=== PATIENT | male | born 1975 | race Caucasian/White ===

== ENCOUNTER 2023-12-17 17:38 | Emergency (ER) | payer BC, SELFPAY ==
[2023-12-17 17:41] VITALS: BP 170/101; PULSE 85; RESP 18; TEMP 37.1; O2SAT 98; BMI 31.1
--- NOTE | 2023-12-17 17:50 | XR_ITS ---
[facility] [id number] Patient Name: REGINALD NIELSON MRN: [id number] date: 1975 Sex: M Assigned Patient Location: ER Current Patient Location: ED.MAIN Accession/Order Number: [id number] Exam Date: 12/17/2023 18:55 Report Date: 12/17/2023 19:28 At the request of: KATINA CAT Procedure: XR sternum min 2V EXAM: XR sternum min 2V TECHNIQUE: AP and lateral views sternum HISTORY: fall COMPARISON: Chest x-ray 03/04/2016 FINDINGS: There is step-off of the posterior cortex of the mid body of the sternum on the lateral view. Soft tissue swelling over the sternum. XR/XR sternum min 2V IMPRESSION: Suspicious for nondisplaced fracture involving the deep cortex of the mid body of the sternum. Electronically authenticated by: TONIA RODRÍGUEZ Date: 12/17/2023 19:28
--- NOTE | 2023-12-17 17:50 | ED.FALL1 ---
HPI - Fall General Chief Complaint: Fall Stated Complaint: FALL CHEST PAIN Time Seen by Provider: 12/17/23 17:39 Source: patient Mode of arrival: walk-in Limitations: no limitations History of Present Illness HPI Narrative: 48-year-old male presents for pain at his sternum. He slipped last night on a porch and fell and hit this area. He did not hit his head. He points to the midline upper sternal area, well below the sternal notch. No other injury was sustained. The pain is worse in certain positions and its moderate. Related Data Allergies Allergy/AdvReac Type Severity Reaction Status Date / Time No Known Drug Allergies Allergy Verified 12/17/23 17:41 Review of Systems ROS Narrative A ten point review of systems is negative except as noted above. Exam Narrative Exam Narrative: Nurses note and vital signs reviewed and patient is not hypoxic. General: The patient appears well and in no apparent respiratory distress. Skin: Warm, dry, no pallor noted. There is no rash noted. Head: Normocephalic, atraumatic Eye: Normal conjunctiva, no drainage Ears, Nose, Mouth, and Throat: oral mucosa is moist. Nares patent. Mouth without vesicles. Ear canals patent. Tm's without Erythema Cardiovascular: Regular Rate and Rhythm; she has tenderness over the midline sternum in the midportion. There is no crepitus bruise or abrasion. He does not have palpable tenderness over the adjacent rib region. Respiratory: Patient is in no distress, no accessory muscle use, lungs are clear to auscultation, no wheezing, rales or rhonchi Back: non-tender GI: Soft and nontender Musculoskeletal: The patient has no evidence of calf tenderness, no pitting edema, symmetrical pulses noted bilaterally Neurological: A&O, normal speech Psychiatric: Cooperative Constitutional Vital Signs, click to edit/add: Last Vital Signs Temp 98.8 F 12/17/23 17:41 Pulse 85 12/17/23 17:41 Resp 18 12/17/23 17:41 BP 170/101 H 12/17/23 17:41 Pulse Ox 98 12/17/23 17:41 O2 Del Method Room Air 12/17/23 17:41 Course Vital Signs Vital signs: Vital Signs Temperature 98.8 F 12/17/23 17:41 Pulse Rate 85 12/17/23 17:41 Respiratory Rate 18 12/17/23 17:41 Blood Pressure 170/101 H 12/17/23 17:41 Pulse Oximetry 98 12/17/23 17:41 Oxygen Delivery Method Room Air 12/17/23 17:41 Temperature 98.8 F 12/17/23 17:41 Pulse Rate 85 12/17/23 17:41 Respiratory Rate 18 12/17/23 17:41 Blood Pressure 170/101 H 12/17/23 17:41 Pulse Oximetry 98 12/17/23 17:41 Oxygen Delivery Method Room Air 12/17/23 17:41 MDM - Fall MDM Narrative Medical decision making narrative: Sternal x-rays ordered and the patient is signed out to Dr. Jose. Differential Diagnosis Differential diagnosis: Likely other (Sternal fracture, sternal contusion) Discharge Plan Discharge Patient Disposition: Still a Patient
--- NOTE | 2023-12-17 19:40 | CT_ITS ---
[address] [address] Patient Name: REGINALD NIELSON MRN: [id number] date: 1975 Sex: M Assigned Patient Location: ER Current Patient Location: ER Accession/Order Number: [id number] Exam Date: 12/17/2023 20:10 Report Date: 12/17/2023 20:40 At the request of: MICHELL PERRIN Procedure: CT chest w con EXAM: CT chest w con HISTORY: fall, sternum fx COMPARISON: CT abdomen and pelvis 02/14/2022 TECHNIQUE: CT of the chest with intravenous contrast. Dose reduction techniques were achieved by using automated exposure control and/or adjustment of mA and/or kV according to patient size and/or use of iterative reconstruction technique. FINDINGS: TUBES AND IMPLANTS: None. CHEST: CHEST WALL AND LOWER NECK: Unremarkable. MEDIASTINUM AND SHEKHAR: Unremarkable. BONES: Minimally displaced fractures of the mid to upper sternal body. Associated retrosternal hematoma measuring approximately 7 millimeters in thickness. AORTA: No aneurysm PULMONARY ARTERIES: No embolism CORONARY ARTERIES: No coronary artery calcifications. HEART: Borderline-enlarged LUNG AND AIRWAYS: Unremarkable. PLEURA: Unremarkable. UPPER ABDOMEN: Hepatic steatosis CT/CT chest w con IMPRESSION: Minimally displaced fractures of the mid to upper sternal body. Associated retrosternal hematoma measuring approximately 7 millimeters in thickness. Otherwise no evidence of acute traumatic injury to the chest. Hepatic steatosis Electronically authenticated by: GIBSON GARCIA Date: 12/17/2023 20:40
[2023-12-17 20:30] VITALS: BP 165/102; PULSE 80; RESP 16; O2SAT 99
[2023-12-17] MEDS: KETOROLAC TROMETHAMINE 30 MG/ML VIAL IVP (20:36)
[2023-12-17] MEDS: ORPHENADRINE 60 MG/ 2 ML VIAL 30 MG IV (20:36)
--- NOTE | 2023-12-17 21:17 | ECG_ITS ---
[facility] Test Date: 2023-12-17 Pat Name: REGINALD NIELSON Department: Room: - Gender: Male [employer]: : 1975 Requested By: TAY EWING Order Number: [id number] Reading MD: SHANNON MCGEE Measurements Intervals [place] Rate: 76 P: 65 FL: 172 QRS: 23 QRSD: 102 T: 23 QT: 394 QTc: 424 Interpretive Statements 1100 Sinus rhythm 9110 normal ECG Compared to ECG 04/18/2019 13:04:32 No significant changes Electronically Signed On 12-19-2023 6:57:26 EST by SHANNON MCGEE
[2023-12-17 21:59] LABS: Troponin I High Sensitivity 7.4 pg/mL (4.0-76.1)
[2023-12-17 22:29] VITALS: BP 166/102; PULSE 72; RESP 16; O2SAT 99
== END 2023-12-17 22:30 | disposition home or self-care (01) ==
PROVIDERS: Emergency Provider Emergency Medicine; PCP Family Medicine
DX: S22.22XA Fracture of body of sternum, initial encounter for closed fracture (principal); S20.219A Contusion of unspecified front wall of thorax, initial encounter; W17.89XA Other fall from one level to another, initial encounter
CPT/HCPCS: 36415; 71120; 71260; 84484; 93005; 96374; 96375; 99285; J1885; J2360; Q9967

== ENCOUNTER 2023-12-25 11:32 | Outpatient (OUT) | payer BC, SELFPAY ==
--- NOTE | 2023-12-25 11:36 | XR_ITS ---
[address] [address] Patient Name: REGINALD NIELSON MRN: [id number] date: 1975 Sex: M Assigned Patient Location: RAD Current Patient Location: Accession/Order Number: [id number] Exam Date: 12/25/2023 11:42 Report Date: 12/26/2023 07:14 At the request of: TAY EWING Procedure: XR sternum min 2V PROCEDURE: XR sternum min 2V COMPARISON: 12/17/2023 HISTORY: Unspecified Fracture Of Sternum S22.20XD FINDINGS: BONES:Previously identified sternal body fracture appears josef with displacement measuring up to 5 mm. No new fracture. SOFT TISSUES:Negative. No visible soft tissue swelling. EFFUSION:None visible. OTHER: Negative. XR/XR sternum min 2V IMPRESSION: Stable sternal body fracture Electronically authenticated by: EDUARD QUIROS Date: 12/26/2023 07:14
--- OUTSIDE RECORDS SUMMARY | 2023-12-25 11:36 | XMS_ITS | CCD ---
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 Name Role Phone Layne Ramírez Attending Unavailable Layne Ramírez Primary Care Physician [phone] KAYLIN, DR BERNICE Pride Admitting Unavailable MEKHI, DR WILLIAM Meléndez Consulting Unavailable EWING, DR BERNICE Pride Primary Care Unavailable EWING, DR BERNICE Pride Attending Unavailable EWING, DR BERNICE Pride Consulting Unavailable EWING, DR BERNICE Pride Primary Care Unavailable DONNY, SARAI Admitting Unavailable DONNY, SARAI Attending Unavailable DONNY, SARAI Admitting Unavailable DONNY, SARAI Attending Unavailable EWING, DR BERNICE Pride Primary Care Unavailable EWING, DR BERNICE Pride Primary Care Unavailable DONNY, SARAI Admitting Unavailable DONNY, SARAI Attending Unavailable EWING, DR BERNICE Pride Primary Care Unavailable EWING, DR BERNICE Pride Admitting Unavailable EWING, DR BERNICE Pride Attending Unavailable JORDAN, DR EDNA Gordon Attending Unavailabl e EWING, DR BERNICE Pride Primary Care Unavailable JORDAN, DR EDNA Gordon Consulting Unavailabl e JORDAN, DR EDNA Gordon Admitting Unavailabl e MEKHI, DR WILLIAM Meléndez Consulting Unavailable KATINA CAT Admitting Unavailable KAYLIN, DR BERNICE Pride Primary Care Unavailable SLIGO, DR EDUARD Norman Consulting Unavailable KATINA CAT Attending Unavailable ARSALAN ROCKWELL Consulting Unavailable KAYLIN, DR BERNICE Pride Primary Care Unavailable SARAI HINES Admitting Unavailable SARAI HINES Attending Unavailable MEKHI, DR WILLIAM Meléndez Consulting Unavailable DONNY, SARAI Consulting Unavailable EWING, DR BERNICE Pride Primary Care Unavailable EWING, DR BERNICE Pride Admitting Unavailable EWING, DR EBRNICE Pride Attending Unavailable EWING, DR BERNICE Pride Consulting Unavailable Bernice Ewing Unavailable DO Jimmy Spears Primary Care Provider [phone] DO Rufus Leung Attending Provider Rufus Leung Unavailable Jimmy Spears Primary Care Unavailable Rufus Leung Admitting Unavailable Rufus Leung Attending Unavailable Jimmy Spears Primary Care Unavailable Rufus Leung Admitting Unavailable Rufus Leung Attending Unavailable Allergies Allergy Classification Reported Allergen(s) Allergy Type Date of Onset Reaction(s) Facility (8 sources) traMADol Drug Allergy Comment:pt states he is not allergic to tramadol [facility] Other Medications Current Medications Medication Drug Class(es) Dates Sig (Normalized) Sig (Original) acetaminophen 325 mg / oxyCODONE hydrochloride 5 mg oral tablet (3 sources) Opioid Agonist Start: 12-18-2023 take 1 tablet by mouth every six hours Endocet 5-325 MG 1 tablet as needed Orally every 6 hrs for 7 days Dec, Active Albuterol Sulfate 108 (90 Base) MCG/ACT (13 sources) take 1 puff(s) by inhalation every four hours as needed Albuterol Sulfate 108 (90 Base) MCG/ACT 1 puff as needed Inhalation every 4 hrs Active allopurinol 300 mg oral tablet (5 sources) Xanthine Oxidase Inhibitor take 1 tablet by mouth once daily Allopurinol 300 MG TAKE 1 TABLET BY MOUTH EVERY DAY for 90 Active cyclobenzaprine hydrochloride 10 mg oral tablet (3 sources) Muscle Relaxant take 1 tablet by mouth every twenty-four hours Cyclobenzaprine HCl 10 MG 1 tablet at bedtime as needed Orally Once a day Active diazePAM 10 mg oral tablet (13 sources) Benzodiazepine Start: 11-27-2023 take 1 tablet by mouth every twelve hours as needed diazePAM 10 MG TAKE 1 TABLET BY MOUTH EVERY 12 HOURS NEEDED for 30 Nov, Active Start: 09-14-2023 take 1 tablet by ashanti th every twelve hours diazePAM 10 MG 1 tablet as needed Orally every 12 hrs for 30 days Sep, Active Start: 07-10-2023 take 1 tablet by ashanti th every twelve hours diazePAM 5 MG 1 tablet as needed Orally every 12 hrs for 30 days Jun, Active Start: 04-26-2023 take 1 tablet by ashanti th once daily as needed diazePAM 5 MG TAKE 1 TABLET BY MOUTH ONCE A DAY NEEDED for Apr, Active Start: 02-14-2023 take 1 tablet by ashanti th once daily as needed diazePAM 5 MG TAKE 1 TABLET BY MOUTH ONCE A DAY NEEDED for Feb, Active Start: 01-19-2023 take 1 tablet by ashanti th once daily as needed diazePAM 5 MG TAKE 1 TABLET BY MOUTH ONCE A DAY NEEDED for Jan, Active Start: 12-05-2022 diazePAM 5 MG TAKE 1 (ONE) TABLET DAILY NEEDED for Nov, Active dicyclomine hydrochloride 20 mg oral tablet (3 sources) Anticholinergic take 1 tablet by mouth every eight hours Dicyclomine HCl 20 MG 1 tablet Orally Three times a day Active losartan potassium 50 mg oral tablet (3 sources) Angiotensin 2 Receptor Dominga take 1 tablet by mouth every twenty-four hours Losartan Potassium 50 MG 1 tablet Orally Once a day Active methocarbamol 750 mg oral tablet (3 sources) Muscle Relaxant Methocarbamol 75 0 MG 1 taablet every 6 hrs prn Active methylPREDNISolone 4 mg oral tablet (3 sources) Corticosteroid take 1 tablet by mouth every twelve hours Medrol 4 MG 1 tablet with food or milk Orally every 12 hrs Active 24 hr metoprolol succinate 50 mg extended release oral tablet (14 sources) beta-Adrenergic [place] take 1 tablet by mouth once daily Metoprolol Succinate ER 50 MG TAKE 1 TABLET BY MOUTH EVERY DAY for 90 days Active take 1 tablet by mouth once jerri y Metoprolol Succinate ER 100 MG TAKE 1 TABLET BY MOUTH EVERY DAY for 90 Active nabumetone 750 mg oral tablet (3 sources) Nonsteroidal Anti-inflammatory Drug Nabumetone 750 MG 1 tablet twice a day prn for 14 days Active omeprazole 20 mg delayed release oral capsule (12 sources) Proton Pump Inhibitor take 1 capsule by mouth once daily Omeprazole 20 MG TAKE 1 CAPSULE BY MOUTH EVERY DAY for 90 Active traMADol hydrochloride 50 mg oral tablet (3 sources) Opioid Agonist take 1 tablet by mouth every twenty-four hours traMADol HCl 50 MG 1 tablet as needed Orally Once a day Active Problems Active Problems Problem Classification Problem Date Documented Date Episodic/Chronic Abdominal pain (17 sources) Unspecified abdominal pain; Translations: [Abdominal pain] Onset: 02-14-2022 Episodic Anxiety disorders (20 sources) Acute stress disorder; Translations: [Acute stress reaction] Chronic Chronic obstructive pulmonary disease and bronchiectasis (13 sources) Bronchitis; Translations: [Bronchitis, not specified as acute or chronic] Episodic Disorders of lipid metabolism (13 sources) Dyslipidemia; Translations: [Hyperlipidemia, unspecified] Chronic Esophageal disorders (13 sources) Gastroesophageal reflux disease; Translations: [Gastro-esophageal reflux disease without esophagitis] Chronic Essential hypertension (14 sources) Essential hypertension; Translations: [Essential (primary) hypertension] Chronic Fever of unknown origin (13 sources) Fever; Translations: [Fever, unspecified] Episodic Gout and other crystal arthropathies (13 sources) Gout; Translations: [Gout, unspecified] Chronic Osteoarthritis (4 sources) Primary osteoarthritis, unspecified ankle and foot; Translations: [PRIMARY OSTEOARTHRITIS UNS ANK FOOT] Onset: 09-13-2022 Chronic Other acquired deformities (1 source) Contracture, left ankle; Translations: [CONTRACTURE LEFT ANKLE] Onset: 10-15-2022 Chronic Other acquired deformities (13 sources) Joint contracture of the ankle and/or foot; Translations: [Contracture, left ankle] Chronic Other connective tissue disease (4 sources) Calcaneal spur, left foot; Translations: [CALCANEAL SPUR LEFT FOOT] Onset: 10-11-2022 Episodic Other connective tissue disease (5 sources) Pain in right foot; Translations: [PAIN IN RIGHT FOOT] Onset: 12-30-2021 Episodic Other connective tissue disease (13 sources) Peripheral neurogenic pain; Translations: [Neuralgia and neuritis, unspecified] Episodic Other connective tissue disease (20 sources) Calcaneal spur; Translations: [Calcaneal spur, right foot] Episodic Other connective tissue disease (13 sources) Peroneal tendinitis; Translations: [Peroneal tendinitis, left leg] Episodic Other connective tissue disease (20 sources) Achilles bursitis; Translations: [Achilles tendinitis, left leg] Episodic Other connective tissue disease (13 sources) Plantar fascial fibromatosis; Translations: [Plantar fascial fibromatosis] Episodic Other connective tissue disease (13 sources) Calcific tendinitis; Translations: [Calcific tendinitis, other site] Episodic Other connective tissue disease (13 sources) Pain in right foot; Translations: [Pain in right foot] Episodic Other connective tissue disease (1 source) Pain in left foot Episodic Other fractures (1 source) Unspecified fracture of sternum, initial encounter for closed fracture Episodic Other nervous system disorders (13 sources) Mononeuropathy of lower limb; Translations: [Unspecified mononeuropathy of right lower limb] Chronic Other nervous system disorders (1 source) Unspecified mononeuropathy of bilateral lower limbs Chronic Other non-traumatic joint disorders (13 sources) Arthralgia of the ankle and/or foot; Translations: [Pain in right ankle and joints of right foot] Episodic Other nutritional; endocrine; and metabolic disorders (13 sources) Obesity; Translations: [Obesity, unspecified] Chronic Other nutritional; endocrine; and metabolic disorders (13 sources) Hyperuricemia without signs of inflammatory arthritis and tophaceous disease; Translations: [Hyperuricemia without signs of inflammatory arthritis and tophaceous disease] Episodic Other screening for suspected conditions (not mental disorders or infectious disease) (20 sources) Serum ferritin high; Translations: [Other specified abnormal findings of blood chemistry] Episodic Sprains and strains (4 sources) Sprain of unspecified ligament of left ankle, initial encounter; Translations: [Strain of unspecified muscles, fascia and tendons at forearm level, right arm, initial encounter] Onset: 07-22-2022 Episodic Substance-related disorders (1 source) Nicotine dependence, cigarettes, uncomplicated; Translations: [NICOTINE DEPEND CIGARETTES UNCOMP] Onset: 07-22-2022 Chronic Unclassified (1 source) Strain of muscle, fascia and tendon of other parts of biceps, right arm, initial encounter; Translations: [Strain of muscle, fascia and tendon of other parts of biceps, right arm, initial encounter] Onset: 07-20-2023 Past or Other Problems Problem Classification Problem Date Documented Da te Episodic/Chronic E Codes: Natural/environment (2 sources) Overexertion from prolonged static or awkward postures, initial encounter; Translations: [Exposure to other specified factors, initial encounter] Onset: 02-16-2022 Episodic Nausea and vomiting (1 source) Vomiting, unspecified; Translations: [VOMITING UNSPECIFIED] Onset: 02-16-2022 Episodic Other aftercare (1 source) 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; Translations: [OTH ROLL SHEETING CUTTER CURRENT DRUG THERAPY] Onset: 07-22-2022 Episodic Other fractures (1 source) Fracture of one rib, left side, initial encounter for closed fracture; Translations: [FX 1 RIB LT SIDE INITIAL CLOS FX] Onset: 02-16-2022 Episodic Other gastrointestinal disorders (1 source) Diarrhea, unspecified; Translations: [DIARRHEA UNSPECIFIED] Onset: 02-16-2022 Episodic Other non-traumatic joint disorders (3 sources) Pain in left ankle and joints of left foot; Translations: [PAIN IN LEFT ANKLE] Onset: 07-21-2022 Episodic Unclassified (9 sources) Post-COVID syndrome; Translations: [Post-COVID syndrome] Unclassified (4 sources) Chronic [id number] syndrome (disorder); Translations: [Post-COVID syndrome] Results Test Name Value Interpretation Reference Range Facility MR elbow RT wo conon 023 MR elbow RT wo con [facility] Main [place] [address] [place] [address] MRI Report Signed Patient: Sung Currie MR#: [id number] : 1975 Acct:[id number] Age/Sex: 48 / M ADM Date: 07/24/23 Loc: MR Room: Type: [facility] Attending Dr: Rufus Leung DO Copies to: Rufus Leung DO Ordering Provider: Rufus Leung DO Date of Service: 07/24/23 MR/MR elbow RT wo con: S46.211A MR elbow RT wo con 07/24/2023 12:34 PM SIGNS AND SYMPTOMS: Injury to biceps with pain from right elbow into right upper arm PROTOCOL: Multiplanar multisequence MR images of the right elbow were obtained without IV contrast COMPARISON: 07/20/2023 FINDINGS: Joint fluid: There is a small joint effusion. Medial: Ulnar collateral ligament: Intact. Common flexor tendon: Intact. Medial epicondyle: Normal. Lateral: Radial collateral ligament: Intact. Lateral ulnar collateral ligament: Intact. Common extensor tendon: There is edema at the origin of the common extensor tendon. The tendon is grossly intact.. Lateral epicondyle: Normal. Posterior: Triceps: Intact. Olecranon: There is enthesophyte formation similar to that seen on previous radiographs. Anterior: Biceps: There is a full-thickness tear of the biceps tendon at the insertion along the radial tuberosity. The biceps tendon has been retracted by 10.7 cm. Brachialis: Intact. Bicipitoradial bursa: Intact. Articular: Radio-capitellar joint: Normal. Ulno-humeral joint: Normal. Proximal radio-ulnar joint: Normal. Bones (other than subarticular marrow): Normal. Muscles: Normal. Vessels: Normal. Nerves: Cubital tunnel normal, retinaculum intact. Anconeus epitrochlearis muscle present. Intra-articular bodies: None. MR/MR elbow RT wo con IMPRESSION: There is a full-thickness tear of the biceps tendon at the insertion along the radial tuberosity. The biceps tendon has been retracted by 10.7 cm. Tendinopathy is noted at the origin of the common extensor tendon. There is enthesophyte formation along the olecranon similar to the prior radiographs. Impression dictated by: Maciel Gonzalez M.D.07/24/2023 4:30 PM Dictation Location: [place] [address] Transcribed By: [facility] 07/24/23 1630 Dictated By: Maciel Gonzalez II, MD 07/24/23 1622 Signed By: 07/24/23 1630 Normal [facility] MR elbow RT wo con [facility] [employer] Other MR elbow RT wo con [facility] [employer] Other MR elbow RT wo con [address] [place] [address] [employer] Other MR elbow RT wo con [address] [employer] Other MR elbow RT wo con MRI Report [facility] [employer] Other MR elbow RT wo con Signed Patient [employer] [facility] [employer] Other MR elbow RT wo con Patient: Sung Currie MR#: [id number] [facility] [employer] Other MR elbow RT wo con : 1975 Acct:[id number] [facility] [employer] Other MR elbow RT wo con Age/Sex: 48 / M ADM Date: 07/24/23 Patient [employer] [facility] [employer] Other MR elbow RT wo con Loc: Room: Type: REG CLI [employer] Other MR elbow RT wo con Attending Dr: Rufus Leung DO [employer] Other MR elbow RT wo con Copies to: Rufus Leung DO [employer] Other MR elbow RT wo con Ordering Provider: Rufus Leung DO [employer] Other MR elbow RT wo con Date of Service: 07/24/23 [employer] Other MR elbow RT wo con MR/MR elbow RT wo con: S46.211A [employer] Other MR elbow RT wo con MR elbow RT wo con 07/24/2023 12:34 PM [employer] Other MR elbow RT wo con SIGNS AND SYMPTOMS: Injury to biceps with pain from right elbow into right upper arm [employer] Other MR elbow RT wo con PROTOCOL: Multiplana r multisequence MR images of the right elbow were obtained without IV contrast [employer] Other MR elbow RT wo con COMPARISON: 07/20/2023 [employer] Other MR elbow RT wo con FINDINGS: [employer] Other MR elbow RT wo con Joint fluid: There i s a small joint effusion. [employer] Other MR elbow RT wo con Medial: [employer] Other MR elbow RT wo con Ulnar collateral ligament: Intact. [employer] Other MR elbow RT wo con Common flexor tendon : Intact. [employer] Other MR elbow RT wo con Medial epicondyle: Normal. [employer] Other MR elbow RT wo con Lateral: [employer] Other MR elbow RT wo con Radial collateral ligament: Intact. [employer] Other MR elbow RT wo con Lateral ulnar collateral ligament: Intact. [employer] Other MR elbow RT wo con Common extensor tendon: There is edema at the origin of the common extensor tendon. The tendon is [employer] Other MR elbow RT wo con grossly intact.. [employer] Other MR elbow RT wo con Lateral epicondyle: Normal. [employer] Other MR elbow RT wo con Posterior: [employer] Other MR elbow RT wo con Triceps: Intact. [employer] Other MR elbow RT wo con Olecranon: There is enthesophyte formation similar to that seen on previous radiographs. [employer] Other MR elbow RT wo con Anterior: [employer] Other MR elbow RT wo con Biceps: There is a full-thickness tear of the biceps tendon at the insertion along the radial [employer] Other MR elbow RT wo con tuberosity. The biceps tendon has been retracted by 10.7 cm. [employer] Other MR elbow RT wo con Brachialis: Intact. [employer] Other MR elbow RT wo con Bicipitoradial bursa : Intact. [employer] Other MR elbow RT wo con Articular: [employer] Other MR elbow RT wo con Radio-capitellar joint: Normal. [employer] Other MR elbow RT wo con Ulno-humeral joint: Normal. [employer] Other MR elbow RT wo con Proximal radio-ulnar joint: Normal. [employer] Other MR elbow RT wo con Bones (other than subarticular marrow): Normal. [employer] Other MR elbow RT wo con Muscles: Normal. [employer] Other MR elbow RT wo con Vessels: Normal. [employer] Other MR elbow RT wo con Nerves: Cubital tunnel normal, retinaculum intact. Anconeus epitrochlearis muscle present. [employer] Other MR elbow RT wo con Intra-articular bodies: None. [employer] Other MR elbow RT wo con MR/MR elbow RT wo con [employer] Other MR elbow RT wo con IMPRESSION: [employer] Other MR elbow RT wo con There is a full-thickness tear of the biceps tendon at the insertion along the radial tuberosity. [employer] Other MR elbow RT wo con The biceps tendon sahni s been retracted by 10.7 cm. [employer] Other MR elbow RT wo con Tendinopathy is note d at the origin of the common extensor tendon. [employer] Other MR elbow RT wo con There is enthesophyt e formation along the olecranon similar to the prior radiographs. [employer] Other MR elbow RT wo con Impression dictated by: Maciel Gonzalez M.D.07/24/2023 4:30 PM [employer] Other MR elbow RT wo con Dictation Location: [place] [address] [employer] Other MR elbow RT wo con Transcribed By: RALEEN 07/24/23 1630 [employer] Other MR elbow RT wo con Dictated By: Maciel Gonzalez II, MD 07/24/23 1622 [employer] Other MR elbow RT wo con Signed By: [employer] Other MR elbow RT wo con 07/24/23 1630 [facility] [employer] Other XR elbow RT 2Von 07-20-2023 XR elbow RT 2V [facility] Main [place] [address] [place] [address] XRay Report Signed Patient: Sung Currie MR#: [id number] : 1975 Acct:[id number] Age/Sex: 48 / M ADM Date: 07/20/23 Loc: [facility] Room: Type: [facility] Attending Dr: Rufus Leung DO Copies to: Rufus Leung DO Ordering Provider: Rufus Leung DO Date of Service: 07/20/23 XR/XR elbow RT 2V: Rupture of right distal biceps tendon, initial encounter RIGHT ELBOW - 4 VIEWS CLINICAL HISTORY: History of right biceps injury 4-5 months ago with pain radiating from the elbow upward. COMPARISON: None AP and lateral views were obtained. No acute fracture or dislocation is noted. There is an enthesophyte at the olecranon at the insertion of triceps tendon with small adjacent corticated bony ossicles. There is minimal enthesophyte formation at the humeral condyles. A small amount of joint fluid is possible. No focal soft tissue swelling is seen. XR/XR elbow RT 2V IMPRESSION: DEGENERATIVE CHANGES. NO DEFINITE ACUTE BONY FINDINGS. Impression dictated by: Nuzhat Gutierrez M.D.07/20/2023 3:40 PM Dictation Location: [place] [address] Transcribed By: [facility] 07/20/23 1540 Dictated By: Nuzhat Gutierrez MD 07/20/23 1538 Signed By: 07/20/23 1540 Normal [facility] XR elbow RT 2V [facility] [employer] Other XR elbow RT 2V [facility] Main [facility] [employer] Other XR elbow RT 2V [address] [facility] [employer] Other XR elbow [place] [address] [address] No rt [employer] Other XR elbow RT 2V XRay Report [employer] Other XR elbow RT 2V Signed [employer] Other XR elbow RT 2V Patient: Sung Currie MR#: [id number] [employer] Other XR elbow RT 2V : 1975 Acct:[id number] [employer] Other XR elbow RT 2V Age/Sex: 48 / M ADM Date: 07/20/23 [employer] Other XR elbow RT 2V Loc: [facility] Room: Type : [facility] [employer] Other XR elbow RT 2V Attending Dr: Rufus Leung DO [employer] Other XR elbow RT 2V Copies to: Rufus Leung DO [employer] Other XR elbow RT 2V Ordering Provider: Rufus Leung DO [employer] Other XR elbow RT 2V Date of Service: 07/20/23 [employer] Other XR elbow RT 2V XR/XR elbow RT 2V: Rupture of right distal biceps tendon, initial [employer] Other XR elbow RT 2V encounter [employer] Other XR elbow RT 2V RIGHT ELBOW - 4 VIEWS [employer] Other XR elbow RT 2V CLINICAL HISTORY: History of right biceps injury 4-5 months ago with pain radiating from the elbow [employer] Other XR elbow RT 2V upward. [employer] Other XR elbow RT 2V COMPARISON: None [facility] [employer] Other XR elbow RT 2V AP and lateral views were obtained. No acute fracture or dislocation is noted. There is an [employer] Other XR elbow RT 2V enthesophyte at the olecranon at the insertion of triceps tendon with small adjacent corticated bony [employer] Other XR elbow RT 2V ossicles. There is minimal enthesophyte formation at the humeral condyles. A small amount of joint [employer] Other XR elbow RT 2V fluid is possible. N o focal soft tissue swelling is seen. [employer] Other XR elbow RT 2V XR/XR elbow RT 2V [employer] Other XR elbow RT 2V IMPRESSION: [employer] Other XR elbow RT 2V DEGENERATIVE CHANGES. [employer] Other XR elbow RT 2V NO DEFINITE ACUTE BONY FINDINGS. [employer] Other XR elbow RT 2V Impression dictated by: Nuzhat Gutierrez M.D.07/20/2023 3:40 PM [employer] Other XR elbow RT 2V Dictation Location: [place] [address] [employer] Other XR elbow RT 2V Transcribed By: [facility] 07/20/23 1540 [employer] Other XR elbow RT 2V Dictated By: Nuzhat Gutierrez MD 07/20/23 1534 [employer] Other XR elbow RT 2V Signed By: [employer] Other XR elbow RT 2V 07/20/23 1540 [employer] Other Ambulatory Visit Summaryon 0 08-03-2022 Ambulatory Visit Summary SUNG CURRIE :1975 Visit Date:08/03/2022 Ambulatory Visit Instructions Your Care Team Attending Physician - Desiree HENSLEY, Layne Primary Care Physician - Desiree HENSLEY, Layne Allergies No active allergies Normal [facility] CBC AUTO DIFFon 07-25-2022 BASO # 0.0 103/ul Normal 0.0-0.1 [facility] Comment on above: Performed By: #### C #### [facility] [address] [place] [address] [address] Nini Jordan Basophils/100 WBC (Bld) 0.2 % Normal 0.2-2.0 [facility] Comment on above: Performed By: #### C BC #### [facility] [address] [place] [address] Dr. Nini Jordan EO # 0.0 103/ul Normal 0.0-0.7 [facility] Comment on above: Performed By: #### C BC #### [facility] [address] [place] [address] Dr. Nini Jordan Eosinophils/100 WBC (Bld) 0.2 % Critically low 0.9-7.0 [facility] Comment on above: Performed By: #### C BC #### [facility] [address] [place] [address] Dr. Nini Jordan Erythrocyte distribution width (RBC) [Ratio] 12.6 % Normal 11.0-15.0 [facility] Comment on above: Performed By: #### C BC #### [facility] [address] [place] [address] Dr. Nini Jordan Hematocrit (Bld) [Volume fraction] 42.5 % Normal 42.0-54.0 [facility] Comment on above: Performed By: #### C BC #### [facility] [address] [place] [address] Dr. Nini Jordan Hemoglobin (Bld) [Mass/Vol] 14.0 g/dL Normal 14.0-18.0 [facility] Comment on above: Performed By: #### C BC #### [facility] [address] [place] [address] Dr. Nini Jordan IG # 0.06 10e3/ul Critically high 0.00-0.03 [facility] Comment on above: Performed By: #### C BC #### [facility] [address] [place] [address] Dr. Nini Jordan IG % 0.6 % Critically high 0.0-0.5 [facility] Comment on above: Performed By: #### C BC #### [facility] [address] [address] [address] Nini Jordan LYMPH # 1.6 103/ul Normal 1.2-3.8 [facility] Comment on above: Performed By: #### C BC #### [facility] [address] [address] [address] Nini Jordan Lymphocytes/100 WBC (Bld) 16.5 % Critically low 20.5-60.0 [facility] Comment on above: Performed By: #### C BC #### [facility] [address] [place] [address] Dr. Nini Jordan MANUAL DIFF REQ NO Normal [facility] Comment on above: Performed By: #### C BC #### [facility] [address] [place] [address] Dr. Nini Jordan MCH (RBC) [Entitic mass] 32.6 pg Normal 25.9-34.0 [facility] Comment on above: Performed By: #### C BC #### [facility] [address] [place] [address] Dr. Nini Jordan MCHC (RBC) [Mass/Vol] 32.9 g/dL Normal 29.9-35.2 [facility] Comment on above: Performed By: #### C BC #### [facility] [address] [place] [address] Dr. Nini Jordan MCV (RBC) [Entitic vol] 98.8 fL Critically high 80.0-94.0 [facility] Comment on above: Performed By: #### C BC #### [facility] [address] [place] [address] Dr. Nini Jordan MONO # 0.7 103/ul Normal 0.3-0.8 [facility] Comment on above: Performed By: #### C BC #### [facility] [address] [place] [address] Dr. Nini Jordan Monocytes/100 WBC (Bld) 6.8 % Normal 1.7-12.0 [facility] Comment on above: Performed By: #### C BC #### [facility] [address] [address] [address] Nini Jordan NEUT # 7.4 103/ul Critically high 1.4-6.5 [facility] Comment on above: Performed By: #### C BC #### [facility] [address] [address] [address] Nini Jordan Neutrophils/100 WBC (Bld) 75.7 % Critically high 43.0-75.0 [facility] Comment on above: Performed By: #### C BC #### [facility] [address] [address] [address] Nini Jordan Platelet mean volume (Bld) [Entitic vol] 9.4 fL Critically low 9.5-13.5 [facility] Comment on above: Performed By: #### C BC #### [facility] [address] [address] [address] Nini Jordan PLT 213 103/ul Normal 150-450 [facility] Comment on above: Performed By: #### C BC #### [facility] [address] [address] [address] Nini Jordan RBC 4.30 106/ul Critically low 4.70-6.10 [facility] Comment on above: Performed By: #### C BC #### [facility] [address] [address] [address] Nini Jordan WBC 9.8 103/ul Normal 4.0-11.0 [facility] Comment on above: Performed By: #### C BC #### [facility] [address] [address] [address] Nini Jordan LIPID PROFILEon 07-25-2022 CHOL-HDL RATIO NORM SEE BELOW Normal [facility] Comment on above: Result Comment: 3.3 - 4.4 LOW RISK 4.4 - 7.1 AVERAGE RISK 7.1 - 11.0 MODERATE RISK >11.0 HIGH RISK Performed By: #### C BC #### [facility] [address] [address] [address] Nini Jordan Cholesterol [Mass/Vol] 243 mg/dL Critically high <=200 [facility] Comment on above: Performed By: #### C BC #### [facility] [address] [address] [address] Nini Jordan Cholesterol in HDL [Mass/Vol] 60 mg/dL Normal 40-60 [facility] Comment on above: Performed By: #### C BC #### [facility] [address] [place], [place] [address] Dr. Nini Jordan Cholesterol in LDL [Mass/Vol] 162.6 mg/dL Normal [facility] Comment on above: Performed By: #### C BC #### [facility] [address] [address] [address] Nini Jordan Cholesterol.total/C holesterol in HDL [Mass ratio] 4.1 {ratio} Normal [facility] Comment on above: Performed By: #### C BC #### [facility] [address] [place] [address] Dr. Nini Jordan HDL NORMAL > or = 60 mg/dl - LO W CARDIOVASCULAR RISK <40 mg/dl - HIGH CARDIOVASCULAR RISK Normal [facility] Comment on above: Performed By: #### C BC #### [facility] [address] [place] [address] Dr. Nini Jordan LDL CALC NORMAL SEE BELOW Normal [facility] Comment on above: Result Comment: <100 mg/dl OPTIMAL 100 - 129 mg/dl NEAR OR ABOVE OPTIMAL 130 - 159 mg/dl BORDERLINE HIGH 160 - 189 mg/dl HIGH >190 mg/dl VERY HIGH Performed By: #### C BC #### [facility] [address] [address] [address] Nini Jordan Triglyceride [Mass/Vol] 102 mg/dL Normal <=150 [facility] Comment on above: Performed By: #### C BC #### [facility] [address] [place] [address] Dr. Nini Jordan VLDL CALC 20.4 mg/dL Normal [facility] Comment on above: Performed By: #### C BC #### [facility] [address] [address] [address] Nini Jordan PROF 14(COMP METB)on 022 Albumin [Mass/Vol] 3.3 g/dL Critically low 3.4-5.0 [facility] Comment on above: Performed By: #### C BC #### [facility] [address] [place] [address] Dr. Nini Jordan Albumin/Globulin [Mass ratio] 0.9 {ratio} Normal [facility] Comment on above: Performed By: #### C BC #### [facility] [address] [place] [address] Dr. Nini Jordan ALP [Catalytic activity/Vol] 72 U/L Normal 46-116 [facility] Comment on above: Performed By: #### C BC #### [facility] [address] [place] [address] Dr. Nini Jordan ALT [Catalytic activity/Vol] 46 U/L Normal 16-63 [facility] Comment on above: Performed By: #### C BC #### [facility] [address] [place] [address] Dr. Nini Jordan Anion gap [Moles/Vol] 11.0 mmol/L Normal [facility] Comment on above: Performed By: #### C BC #### [facility] [address] [place] [address] Dr. Nini Jordan AST [Catalytic activity/Vol] 25 U/L Normal 15-37 [facility] Comment on above: Performed By: #### C BC #### [facility] [address] [place] [address] Dr. Nini Jordan Bilirubin [Mass/Vol] 0.3 mg/dL Normal 0.2-1.0 [facility] Comment on above: Performed By: #### C BC #### [facility] [address] [place] [address] Dr. Nini Jordan Calcium [Mass/Vol] 8.7 mg/dL Normal 8.5-10.1 [facility] Comment on above: Performed By: #### C BC #### [facility] [address] [place] [address] Dr. Nini Joradn Chloride [Moles/Vol] 99 mmol/L Normal 98-107 [facility] Comment on above: Performed By: #### C BC #### [facility] [address] [address] [address] Nini Jordan CO2 [Moles/Vol] 27.3 mmol/L Normal 21.0-32.0 [facility] Comment on above: Performed By: #### C BC #### [facility] [address] [address] [address] Nini Jordan Creatinine [Mass/Vol] 0.87 mg/dL Normal 0.70-1.30 [facility] Comment on above: Performed By: #### C BC #### [facility] [address] [address] [address] Nini Jordan EGFR-AF NAMIBIAN >60 Normal >=60 [facility] Comment on above: Performed By: #### C BC #### [facility] [address] [address] [address] Nini Jordan EGFR-NON AF NAMIBIAN >60 Normal >=60 [facility] Comment on above: Performed By: #### C BC #### [facility] [address] [address] [address] Nini Jordan Globulin (S) [Mass/Vol] 3.7 g/dL Normal [facility] Comment on above: Performed By: #### C BC #### [facility] [address] [address] [address] Nini Jordan Glucose [Mass/Vol] 109 mg/dL Critically high 74-106 [facility] Comment on above: Performed By: #### C BC #### [facility] [address] [address] [address] Nini Jordan Potassium [Moles/Vol] 3.3 mmol/L Critically low 3.5-5.1 [facility] Comment on above: Performed By: #### C BC #### [facility] [address] [address] [address] Nini Jordan Protein [Mass/Vol] 7.0 g/dL Normal 6.4-8.2 [facility] Comment on above: Performed By: #### C BC #### [facility] [address] [place] [address] Dr. Nini Jordan Sodium [Moles/Vol] 134 mmol/L Critically low 136-145 Th [facility] Comment on above: Performed By: #### C BC #### [facility] [address] [place] [address] Dr. Nini Jordan Urea nitrogen [Mass/Vol] 20.0 mg/dL Critically high 7.0-18.0 [facility] Comment on above: Performed By: #### C BC #### [facility] [address] [place] [address] Dr. Nini Jordan Urea nitrogen/Creatinine [Mass ratio] 23.0 mg/mg Normal [facility] Comment on above: Performed By: #### C BC #### [facility] [address] [place] [address] Dr. Nini Jordan AMYLASEon 02-14-2022 AMYL <30 Normal 25-115 [facility] Comment on above: Performed By: #### C BC #### [facility] [address] [place] [address] Dr. Nini Jordan CBC AUTO DIFFon 02-14-2022 BASO # 0.0 103/ul Normal 0.0-0.1 [facility] Comment on above: Performed By: #### C BC #### [facility] [address] [place] [address] Dr. Nini Jordan Basophils/100 WBC (Bld) 0.3 % Normal 0.2-2.0 [facility] Comment on above: Performed By: #### C BC #### [facility] [address] [place] [address] Dr. Nini Jordan EO # 0.0 103/ul Normal 0.0-0.7 [facility] Comment on above: Performed By: #### C BC #### [facility] [address] [place] [address] Dr. Nini Jordan Eosinophils/100 WBC (Bld) 0.1 % Critically low 0.9-7.0 [facility] Comment on above: Performed By: #### C BC #### [facility] [address] [place] [address] Dr. Nini Jordan Erythrocyte distribution width (RBC) [Ratio] 13.4 % Normal 11.0-15.0 [facility] Comment on above: Performed By: #### C BC #### [facility] [address] [place] [address] Dr. Nini Jordan Hematocrit (Bld) [Volume fraction] 44.2 % Normal 42.0-54.0 [facility] Comment on above: Performed By: #### C BC #### [facility] [address] [place] [address] Dr. Nini Jordan Hemoglobin (Bld) [Mass/Vol] 14.8 g/dL Normal 14.0-18.0 [facility] Comment on above: Performed By: #### C BC #### [facility] [address] [place] [address] Dr. Nini Jordan IG # 0.11 10e3/ul Critically high 0.00-0.03 [facility] Comment on above: Performed By: #### C BC #### [facility] [address] [place] [address] Dr. Nini Jordan IG % 0.7 % Critically high 0.0-0.5 [facility] Comment on above: Performed By: #### C BC #### [facility] [address] [place] [address] Dr. Nini Jordan LYMPH # 1.6 103/ul Normal 1.2-3.8 [facility] Comment on above: Performed By: #### C BC #### [facility] [address] [place] [address] Dr. Nini Jordan Lymphocytes/100 WBC (Bld) 10.3 % Critically low 20.5-60.0 [facility] Comment on above: Performed By: #### C BC #### [facility] [address] [place] [address] Dr. Nini Jordan MANUAL DIFF REQ NO Normal [facility] Comment on above: Performed By: #### C BC #### [facility] [address] [place] [address] Dr. Nini Jordan MCH (RBC) [Entitic mass] 31.6 pg Normal 25.9-34.0 [facility] Comment on above: Performed By: #### C BC #### [facility] [address] [place] [address] Dr. Nini Jordan MCHC (RBC) [Mass/Vol] 33.5 g/dL Normal 29.9-35.2 [facility] Comment on above: Performed By: #### C BC #### [facility] [address] [address] [address] Nini Jordan MCV (RBC) [Entitic vol] 94.2 fL Critically high 80.0-94.0 [facility] Comment on above: Performed By: #### C BC #### [facility] [address] [place] [address] Dr. Nini Jordan MONO # 1.0 103/ul Critically high 0.3-0.8 [facility] Comment on above: Performed By: #### C BC #### [facility] [address] [place] [address] Dr. Nini Jordan Monocytes/100 WBC (Bld) 6.4 % Normal 1.7-12.0 [facility] Comment on above: Performed By: #### C BC #### [facility] [address] [place] [address] Dr. Nini Jordan NEUT # 12.5 103/ul Critically high 1.4-6.5 [facility] Comment on above: Performed By: #### C BC #### [facility] [address] [place] [address] Dr. Nini Jordan Neutrophils/100 WBC (Bld) 82.2 % Critically high 43.0-75.0 [facility] Comment on above: Performed By: #### C BC #### [facility] [address] [place] [address] Dr. Nini Jordan Platelet mean volume (Bld) [Entitic vol] 9.4 fL Critically low 9.5-13.5 [facility] Comment on above: Performed By: #### C BC #### [facility] [address] [place] [address] [address] [address] Nini Jordan PLT 327 103/ul Normal 150-450 [facility] Comment on above: Performed By: #### C BC #### [facility] [address] [place], [place] [address] Dr. Nini Jordan RBC 4.69 106/ul Critically low 4.70-6.10 [facility] Comment on above: Performed By: #### C BC #### [facility] [address] [place], [place] [address] Dr. Nini Jordan WBC 15.2 103/ul Critically high 4.0-11.0 [facility] Comment on above: Performed By: #### C BC #### [facility] [address] [place], [place] [address] ABD/PELV W CONon 02-15-20 CT ABD/PELV W CON EXAMINATION: CT ABD/PELV W CON, 02/14/2022 2:16 PM EDT HISTORY: DIARRHEA, UNSPECIFIED , epigastric pain, nausea, vomiting COMPARISON: None. TECHNIQUE: CT scan of the abdomen and pelvis was performed with IV contrast. CT dose reduction technique was used, including Automated Exposure Control. FINDINGS: LUNG BASES: No visible pulmonary or pleural disease. LIVER: Diffuse hypoattenuation consistent with hepatic steatosis BILIARY: No dilatation or calcification. PANCREAS: No lesion, fluid collection, ductal dilatation, or atrophy. SPLEEN: No enlargement or focal lesion. ADRENALS: No mass or enlargement. KIDNEYS: No mass, obstruction, or calcification. BOWEL/MESENTERY: Minimal colonic diverticulosis. Nonobstructive bowel gas pattern. Normal appendix. AORTA/VASCULAR: No aortic aneurysm. Minimal atherosclerosis. RETROPERITONEUM: No mass or adenopathy. LYMPH NODES: No adenopathy. URINARY BLADDER: No visible focal wall thickening, lesion, or calculus. PELVIC ORGANS: No visible mass. Pelvic organs appropriate for patient age. ABDOMINAL WALL: No mass or hernia. BONES: Fracture of the left lateral seventh rib, axial image 2 OTHER: Small amount of free pelvic fluid IMPRESSION: Acute nondisplaced fracture left lateral seventh rib Small amount of free pelvic fluid of unknown etiology Diffuse hepatic steatosis Electronically authenticated by: EDUARD QUIROS Date: 2022-02-14 15:30 Normal [facility] ETHANOL (BLD ALC)on 02-15-20 22 ALC NOTE NOTE: 80 mg/dl is [facility] legal limit for a blood alcohol level Normal [facility] Comment on above: Performed By: #### C BC #### [facility] [address] [place] [address] Dr. Nini Jordan Ethanol [Mass/Vol] mg/dL Normal [facility] Comment on above: Performed By: #### C BC #### [facility] [address] [place] [address] Dr. Nini Jordan GI PANEL (PCR)on 02-14-2022 Adenovirus F 40/41 Not detected Normal NOT DETECTED [facility] Comment on above: Performed By: #### C BC #### [facility] [address] [place] [address] Dr. Nini Jordan Astrovirus Not detected Normal NOT DETECTED [facility] Comment on above: Performed By: #### C BC #### [facility] [address] [place] [address] Dr. Nini Jordan C. Diff toxin A/B Not detected Normal NOT DETECTED [facility] Comment on above: Performed By: #### C BC #### [facility] [address] [place] [address] Dr. Nini Jordan Campylobacter Not detected Normal NOT DETECTED [facility] Comment on above: Performed By: #### C BC #### [facility] [address] [place] [address] Dr. Nini Jordan Cryptosporidium Not detected Normal NOT DETECTED [facility] Comment on above: Performed By: #### C BC #### [facility] [address] [place] [address] Dr. Nini Jordan Cyclos. Cayetanensis Not detected Normal NOT DETECTED [facility] Comment on above: Performed By: #### C BC #### [facility] [address] [place] [address] Dr. Nini Jordan E. Coli O157 Not Applicable Normal Not Applicable [facility] Comment on above: Performed By: #### C BC #### [facility] [address] [place] [address] Dr. Nini Jordan E. histolytica Not detected Normal NOT DETECTED [facility] Comment on above: Performed By: #### C BC #### [facility] [address] [place] [address] Dr. Nini Jordan EAEC Not detected Normal NOT DETECTED [facility] Comment on above: Performed By: #### C BC #### [facility] [address] [place] [address] Dr. Nini Jordan EIEC Not detected Normal NOT DETECTED [facility] Comment on above: Performed By: #### C BC #### [facility] [address] [place] [address] Dr. Nini Jordan EPEC Not detected Normal NOT DETECTED [facility] Comment on above: Performed By: #### C BC #### [facility] [address] [place] [address] Dr. Nini Jordan ETEC Not detected Normal NOT DETECTED [facility] Comment on above: Performed By: #### C BC #### [facility] [address] [place] [address] Dr. Nini Jordan G. Lamblia Not detected Normal NOT DETECTED [facility] Comment on above: Performed By: #### C BC #### [facility] [address] [place] [address] Dr. Nini PAGE CONTROLS PASSED Normal [facility] Comment on above: Performed By: #### C BC #### [facility] [address] [place] [address] Dr. Nini PETERSEN RENNY HEADER GI PANEL BACTERIA Normal [facility] Comment on above: Performed By: #### C BC #### [facility] [address] [place] [address] Dr. Nini GOSS ECOLI GI PANEL DIARRHEAGENIC E.COLI / SHIGELLA Normal [facility] Comment on above: Performed By: #### C BC #### [facility] [address] [place] [address] Dr. Nini GOSS INFO SEE BELOW [facility] Comment on above: Result Comment: EAEC - Enteroaggregative E. Coli EPEC- Enteropathogenic E. Coli ETEC- Enterotoxigenic E. Coli lt/st STEC- Shigella-like toxin-producing E. Coli stx1/stx2 EIEC- Shigella/Enteroinvasive E. Coli Performed By: #### C BC #### [facility] [address] [place] [address] Dr. Nini GOSS PARASITES GI PANEL PARASITES Normal [facility] Comment on above: Performed By: #### C BC #### [facility] [address] [place] [address] Dr. Nini GOSS VIRUS GI PANEL VIRUSES Normal [facility] Comment on above: Performed By: #### C BC #### [facility] [address] [place] [address] Dr. Nini Jordan Norovirus GI/GII Not detected Normal NOT DETECTED [facility] Comment on above: Performed By: #### C BC #### [facility] [address] [place] [address] Dr. Nini Jordan P. Shigelloides Not detected Normal NOT DETECTED [facility] Comment on above: Performed By: #### C BC #### [facility] [address] [place] [address] Dr. Nini Jordan Rotavirus A Not detected Normal NOT DETECTED [facility] Comment on above: Performed By: #### C BC #### [facility] [address] [place] [address] Dr. Nini Jordan Salmonella Not detected Normal NOT DETECTED [facility] Comment on above: Performed By: #### C BC #### [facility] [address] [place] [address] Dr. Nini Jordan Sapovirus Not detected Normal NOT DETECTED [facility] Comment on above: Performed By: #### C BC #### [facility] [address] [place] [address] Dr. Nini Jordan STEC Not detected Normal NOT DETECTED [facility] Comment on above: Performed By: #### C BC #### [facility] [address] [place] [address] Dr. Nini Jordan Vibrio Not detected Normal NOT DETECTED [facility] Comment on above: Performed By: #### C BC #### [facility] [address] [place] [address] Dr. Nini Jordan Vibrio Cholera Not detected Normal NOT DETECTED [facility] Comment on above: Performed By: #### C BC #### [facility] [address] [place] [address] Dr. Nini Jordan Y. Enterocolitica Not detected Normal NOT DETECTED [facility] Comment on above: Performed By: #### C BC #### [facility] [address] [place] [address] Dr. Nini Jordan LACTATE/LACTIC ACIDon 2021 Lactate [Moles/Vol] 1.2 mmol/L Normal 0.7-2.0 [facility] Comment on above: Performed By: #### L ACT #### [facility] [address] [place] [address] Dr. Nini Jordan LIPASEon 02-14-2022 Lipase [Catalytic activity/Vol] 88.0 U/L Normal 23.0-300.0 [facility] Comment on above: Performed By: #### C BC #### [facility] [address] [place] [address] Dr. Nini Jordan PROF 14(COMP METB)on 022 Albumin [Mass/Vol] 3.8 g/dL Normal 3.4-5.0 [facility] Comment on above: Performed By: #### C BC #### [facility] [address] [place] [address] Dr. Nini Jordan Albumin/Globulin [Mass ratio] 0.9 {ratio} Normal [facility] Comment on above: Performed By: #### C BC #### [facility] [address] [place] [address] Dr. Nini Jordna ALP [Catalytic activity/Vol] 106 U/L Normal 46-116 [facility] Comment on above: Performed By: #### C BC #### [facility] [address] [place] [address] Dr. Nini Jordan ALT [Catalytic activity/Vol] 52 U/L Normal 16-63 [facility] Comment on above: Performed By: #### C BC #### [facility] [address] [place] [address] Dr. Nini Jordan Anion gap [Moles/Vol] 14.6 mmol/L Normal [facility] Comment on above: Performed By: #### C BC #### [facility] [address] [address] [address] Nini Jordan AST [Catalytic activity/Vol] 28 U/L Normal 15-37 [facility] Comment on above: Performed By: #### C BC #### [facility] [address] [place] [address] Dr. Nini Jordan Bilirubin [Mass/Vol] 0.5 mg/dL Normal 0.2-1.3 [facility] Comment on above: Performed By: #### C BC #### [facility] [address] [place] [address] Dr. Nini Jordan Calcium [Mass/Vol] 9.1 mg/dL Normal 8.5-10.1 [facility] Comment on above: Performed By: #### C BC #### [facility] [address] [place] [address] Dr. Nini Jordan Chloride [Moles/Vol] 100 mmol/L Normal 98-107 [facility] Comment on above: Performed By: #### C BC #### [facility] [address] [place] [address] Dr. Nini Jordan CO2 [Moles/Vol] 24.9 mmol/L Normal 22.0-30.0 [facility] Comment on above: Performed By: #### C BC #### [facility] [address] [place] [address] Dr. Nini Jordan Creatinine [Mass/Vol] 1.02 mg/dL Normal 0.66-1.25 [facility] Comment on above: Performed By: #### C BC #### [facility] [address] [place] [address] Dr. Nini Jordan EGFR-AF NAMIBIAN >60 Normal >=60 [facility] Comment on above: Performed By: #### C BC #### [facility] [address] [address] [address] Nini Jordan EGFR-NON AF NAMIBIAN >60 Normal >=60 [facility] Comment on above: Performed By: #### C BC #### [facility] [address] [address] [address] Nini Jordan Globulin (S) [Mass/Vol] 4.1 g/dL Normal [facility] Comment on above: Performed By: #### C BC #### [facility] [address] [address] [address] Nini Jordan Glucose [Mass/Vol] 135 mg/dL Critically high 74-106 [facility] Comment on above: Performed By: #### C BC #### [facility] [address] [address] [address] Nini Jordan Potassium [Moles/Vol] 3.5 mmol/L Normal 3.4-5.0 [facility] Comment on above: Performed By: #### C BC #### [facility] [address] [address] [address] Nini Jordan Protein [Mass/Vol] 7.9 g/dL Normal 6.1-8.2 [facility] Comment on above: Performed By: #### C BC #### [facility] [address] [address] [address] Nini Jordan Sodium [Moles/Vol] 136 mmol/L Critically low 137-145 [facility] Comment on above: Performed By: #### C BC #### [facility] [address] [address] [address] Nini Jordan Urea nitrogen [Mass/Vol] 17.0 mg/dL Normal 7.0-18.0 [facility] Comment on above: Performed By: #### C BC #### [facility] [address] [address] [address] Nini Jordan Urea nitrogen/Creatinine [Mass ratio] 16.7 mg/mg Normal [facility] Comment on above: Performed By: #### C BC #### [facility] [address] [place] [address] Dr. Nini Jordan PROTIMEon 02-14-2022 INR Coag (PPP) [Relative time] 0.93 {INR} Normal [facility] Comment on above: Performed By: #### P TT, PT #### [facility] [address] [place] [address] Dr. Nini Jordan INR GUIDELINES SEE BELOW Normal [facility] Comment on above: Result Comment: YURIY RED INR: 2.0 - 3.0 CONDITIONS NOT LISTED BELOW 2.5 - 3.5 FOR PROSTHETIC HEART VALVE REPLACEMENT 2.5 - 3.5 RECURRENT THROMBOSIS Performed By: #### P TT, PT #### [facility] [address] [place] [address] Dr. Nini Jordan PT Coag (PPP) [Time] 10.1 s Normal 9.0-11.6 [facility] Comment on above: Performed By: #### P TT, PT #### [facility] [address] [place] [address] Dr. Nini Jordan PTTon 02-14-2022 aPTT Coag (Bld) [Time] 24.8 s Normal 22.3-36.2 [facility] Comment on above: Performed By: #### P TT, PT #### [facility] [address] [place] [address] Dr. Nini Jordan Vital Signs Date Time Vital Sign Value Performing Clinician Facility 12-18-2023 14:00-0500 Body height 172.72 cm Bernice Ewing Other [facility] 12-18-2023 14:00-0500 Body mass index (BMI) [Ratio] 34.06 kg/m2 Bernice Ewing Other [facility] 12-18-2023 14:00-0500 Body weight 101.61 kg Bernice Ewing Other [facility] Other 12-18-2023 14:00-0500 Diastolic blood pressure 96 mm[Hg] Bernice Ewing Other [facility] Other 12-18-2023 14:00-0500 Systolic blood pressure 152 mm[Hg] Bernice Ewing Other [facility] Other 09-14-2023 11:00-0400 Body height 172.72 cm Bernice Ewing Other [facility] Other 09-14-2023 11:00-0400 Body mass index (BMI) [Ratio] 34.57 kg/m2 Bernice Ewing Other [facility] Other 09-14-2023 11:00-0400 Body weight 103.15 kg Bernice Ewing Other [facility] Other 09-14-2023 11:00-0400 Diastolic blood pressure 82 mm[Hg] Bernice Ewing Other [facility] Other 09-14-2023 11:00-0400 Systolic blood pressure 121 mm[Hg] Bernice Ewing Other [facility] Other 07-20-2023 13:30-0400 Body height 172.72 cm Rufus Leung Other [facility] Other 07-20-2023 13:30-0400 Body mass index (BMI) [Ratio] 33.45 kg/m2 Rufsu Leung Other [facility] Other 07-20-2023 13:30-0400 Body weight 99.79 kg Rufus Leung Other [facility] Other 07-10-2023 10:15-0400 Body height 172.72 cm Bernice Ewing Other [facility] Other 07-10-2023 10:15-0400 Body mass index (BMI) [Ratio] 33.3 kg/m2 Bernice Ewing Other [facility] Other 07-10-2023 10:15-0400 Body weight 99.34 kg Bernice Ewing Other [facility] Other 07-10-2023 10:15-0400 Diastolic blood pressure 95 mm[Hg] Bernice Ewing Other [facility] Other 07-10-2023 10:15-0400 Systolic blood pressure 147 mm[Hg] Bernice Ewing Other [facility] Other 03-14-2023 16:15-0400 Body height 172.72 cm Bernice Ewing Other [facility] Other 03-14-2023 16:15-0400 Body mass index (BMI) [Ratio] 34.82 kg/m2 Bernice Ewing Other [facility] Other 03-14-2023 16:15-0400 Body weight 103.87 kg Bernice Ewing Other [facility] Other 03-14-2023 16:15-0400 Diastolic blood pressure 74 mm[Hg] Bernice Ewing Other [facility] Other 03-14-2023 16:15-0400 SaO2% (BldA) [Mass fraction] 98 % Bernice Ewing Other [facility] Other 03-14-2023 16:15-0400 Systolic blood pressure 132 mm[Hg] Bernice Ewing Other [facility] Other 12-02-2022 11:00-0500 Body height 172.72 cm Bernice Ewing Other [facility] Other 12-02-2022 11:00-0500 Body mass index (BMI) [Ratio] 36.64 kg/m2 Bernice Ewing Other [facility] Other 12-02-2022 11:00-0500 Body weight 109.32 kg Bernice Ewing Other [facility] Other 12-02-2022 11:00-0500 Diastolic blood pressure 72 mm[Hg] Bernice Ewing Other [facility] Other 12-02-2022 11:00-0500 SaO2% (BldA) [Mass fraction] 97 % Bernice Ewing Other [facility] Other 12-02-2022 11:00-0500 Systolic blood pressure 116 mm[Hg] Bernice Ewing Other [facility] Other Encounters Encounter Date Encounter Type Care Provider Facility Start: 12-18-2023 End: 12-18-2023 ambulatory Bernice Ewing Other [facility] Other Start: 12-18-2023 Office outpatient vi sit 15 minutes Bernice Ewing [facility] Start: 12-18-2023 Telephone encounter Bernice Ewing [facility] Start: 09-14-2023 End: 09-14-2023 ambulatory Bernice Ewing Other [facility] Other Start: 09-14-2023 Office outpatient vi sit 15 minutes Bernice Ewing [facility] Start: 07-25-2023 End: 07-25-2023 ambulatory Rufus Leung Other [facility] Other Start: 07-25-2023 Telephone encounter Rufus Leung [facility] [place] Start: 07-24-2023 End: 07-24-2023 ambulatory Jimmy House Facility:[facility] Start: 07-24-2023 End: 07-24-2023 ambulatory DO Jimmy House Work Phone: [facility] Work Phone: Start: 07-24-2023 End: 07-24-2023 Patient encounter procedure DO Jimmy House Work Phone: [facility] [place] Work Phone: Start: 07-20-2023 End: 07-20-2023 ambulatory Jimmy House Facility:[facility] Start: 07-20-2023 Office outpatient ne w 45 minutes Rufus Leung [facility] Start: 07-20-2023 End: 07-20-2023 ambulatory DO Jimmy House Work Phone: [facility] Work Phone: Start: 07-20-2023 End: 07-20-2023 Patient encounter procedure DO Jimmy Spears Work Phone: [facility] Start: 07-10-2023 End: 07-10-2023 ambulatory Bernice Ewing Other [facility] Other Start: 07-10-2023 Office outpatient vi sit 15 minutes Bernice Ewing [facility] Start: 07-07-2023 End: 07-07-2023 ambulatory Bernice Ewing Other [facility] Other Start: 07-07-2023 Telephone encounter Bernice Ewing [facility] Start: 05-01-2023 End: 05-01-2023 ambulatory Bernice Ewing Other [facility] Other Start: 05-01-2023 Telephone encounter Bernice Ewing [facility] Start: 03-14-2023 End: 03-14-2023 ambulatory Bernice Ewing Other [facility] Other Start: 03-14-2023 Office outpatient vi sit 15 minutes Bernice Ewing [facility] Start: 01-27-2023 End: 01-27-2023 ambulatory Bernice Ewing Other [facility] Other Start: 01-27-2023 Telephone encounter Bernice Ewing [facility] Start: 12-08-2022 End: 12-08-2022 ambulatory Bernice Ewing Other [facility] Other Start: 12-08-2022 Telephone encounter Bernice Ewing [facility] Start: 12-02-2022 End: 12-02-2022 ambulatory Bernice Ewing Other [facility] Other Start: 12-02-2022 Encounter for genera l adult medical examination without abnormal findings Bernice Ewing [facility] Start: 12-02-2022 Office outpatient vi sit 15 minutes Bernice Ewing [facility] Start: 10-11-2022 End: 10-12-[address] BERNICE EWING Facility:[facility] Start: 09-13-2022 End: 10-20-[address] BERNICE EWING Facility:[facility] Start: 08-30-[address] BERNICE EWING Facil ity:[facility] Start: 08-05-[address] BERNICE EWING Facil ity:[facility] Start: 08-03-2022 End: 08-04-2022 ambulatory Layne Gudimella Facility:[facility] Start: 08-03-2022 End: 08-03-2022 Patient encounter procedure Layne Gudimella [facility] [place] Start: 07-30-2022 Encounter for genera l adult medical examination without abnormal findings DR BERNICE EWING [facility] Start: 07-28-2022 ambulatory Layne Gudimella Facili ty:[facility] Start: 07-25-2022 End: 07-26-[address] BERNICE EWING Facility:[facility] Start: 07-25-2022 End: 07-26-2022 Encounter for general adult medical examination without abnormal findings DR BERNICE EWING Facility:[facility] Start: 07-21-2022 End: 07-21-[address] EDNA ORTEGA Facility:[facility] Start: 02-14-2022 End: 02-14-2022 ambulatory KATINA CAT Facility:[facility] Start: 01-05-2022 ambulatory SARAI Salcedo y:[facility] Start: 12-30-2021 End: 12-31-[address] BERNICE EWING Facility:[facility] Procedures Date Procedure Procedure Detail Performing Clinician Start: 07-24-2023 MRI of right elbow DO C doc [facility] Work Phone: Start: 07-20-2023 Plain X-ray of right elbow DO Jimmy House Work Phone: Immunizations Immunization Date Immunization Notes Care Provider Ponce fine 09-02-2021 influenza virus vaccine, split virus (incl. purified surface antigen) Bernice Ewing Other [facility] Other 09-02-2021 influenza virus vaccine, unspecified formulation Layne Gudimella [facility] 03-25-2021 SARS-CoV-2 (COVID-19 ) mRNA BNT-162b2 vax Layne Gudimella [facility] 03-04-2021 SARS-CoV-2 (COVID-19 ) mRNA BNT-162b2 vax Layne Gudimella [facility] 08-23-2020 influenza virus vaccine, split virus (incl. purified surface antigen) Bernice Ewing Other [facility] Other 08-23-2020 influenza virus vaccine, unspecified formulation Layne Gudimella [facility] Payers Date Payer Category Payer Self-pay 2011 Private Health Insurance [id number] 1975 Unknown [id number] 1975 Unknown [id number] 1975 Unknown [id number] 1975 Unknown [id number] 1975 Unknown [id number] 1975 Unknown [id number] 1975 Unknown [id number] 1975 Unknown [id number] 1975 Unknown [id number] 1975 Unknown [id number] 1959 Unknown [id number] Private Health Insurance [employer] [id number] Private Health Insurance [employer] [id number] Unknown [id number] Unknown [id number] Social History Date Type Detail Facility Tobacco smoking status No Smokin g Status Entered [facility] Sex Assigned At Male [facility] Start: 1975 Sex Assigned At Male [facility] Clinical Notes 12-30-2021 to 12-18-2023 Note Date & Type Note Facility 12-18-2023 Evaluation note Encounter Date Diagnosis Assessment Notes Dec, Closed fracture of sternum, unspecified portion of sternum, initial encounter (ICD-10 - S22.20XA) Followup in 1 week - discussed off work and note provided. [facility] Other 11-02-2023 Evaluation note* Encounter Date Diagnosis Assessment Notes Treatment Notes Treatment Clinical Notes Sep, Essential hypertension (ICD-10 - I10) Decrease dose of metoprolol. Monitor blood pressure. Sep, Situational anxiety (ICD-10 - F41.8) Patient requesting increased dose on the diazepam for anxiety. He feels if his anxiety is controlled he has less episodes of hypertension. Sep, Pain in right foot (ICD-10 - M79.671) Pt is established w podiatry. Declines further referral to that office. Request FMLA. Per work for time off as needed for foot pain. Sep, Pain in left foot (ICD-10 - M79.672) as above [facility] Other 09-07-2023 Evaluation note* Encounter Date Diagnosis Assessment Notes Treatment Notes Treatment Clinical Notes Jul, Rupture of right distal biceps tendon, initial encounter (ICD-10 - S46.211A) Patient appears to have ruptured the right distal biceps tendon. Due to the chronicity from his injury, surgical fixation might be very difficult and high risk of failure. We discussed the risks and benefits of surgery and not do surgery. Without surgery, he will have a appreciable loss of supination and some loss of elbow flexion. Full details of surgery discussed. Patient opts to proceed with with surgery at this time. Discussed based on the amount of time since his injury, there is increased risk of surgical complication/failure . Surgical procedure, risks, recovery and restrictions discussed in detail. Patient was in understanding and wishes to proceed. We will order a STAT MRI of the right elbow for surgical planning. We would expect at least 3-4 months before returning to heavy work activity. Patient was instructed that he is not guaranteed surgery. We will obtain the MRI to see where the tendon is. I will discuss the MRI findings and the ongoing plan once MRI results are obtained. [facility] Other 08-28-2023 Evaluation note* Encounter Date Diagnosis Assessment Notes Treatment Notes Treatment Clinical Notes Jun, Tear of right biceps muscle, subsequent encounter (ICD-10 - S46.211D) Pt agrees to referral to ortho for possible bicep tendon repair. Jun, Anxiety, generalized (ICD-10 - F41.1) Symptoms have worsened. Requests an increased amount of prn med. [facility] Other 05-02-2023 Evaluation note* Encounter Date Diagnosis Assessment Notes Treatment Notes Treatment Clinical Notes March, Strain of right elbow and forearm, initial encounter (ICD-10 - S56.911A) Improving, per pt. Consider PT and NSAIDs if pain does not improve further. [facility] Other 01-20-2023 Evaluation note* Encounter Date Diagnosis Assessment Notes Treatment Notes Treatment Clinical Notes Nov, Peripheral neuritis of both feet (ICD-10 - G57.93) Discussed problem at length labs will be ordered under wellness code. Patient states he gets labs once a year under wellness code. Nov, Wellness examination (ICD-10 - Z00.00) [facility] Other 11-30-2022 NotePROCEDURE: XR ANKLE LT MIN 3 V, XR FOOT LT MIN 3 VIEWS HISTORY: Pain of left ankle joint ; chronic heel pain COMPARISON: XR ankle left 07/21/2022 FINDINGS: BONES:Stable, corticated small ossification adjacent the medial malleolus with larger ossification at tip of lateral malleolus favoring sequela of remote injuries. Intact, uniform ankle mortise. Small degenerative enthesophytes at the Achilles tendon and plantar aponeurosis insertions into the calcaneus. SOFT TISSUES:No visible soft tissue swelling. EFFUSION:None visible. OTHER: Negative. IMPRESSION: 1. No acute or suspicious findings to account for patient's symptoms. 2. No appreciable change compared to prior study. Electronically authenticated by: WILLIAM GAMING Date: 2022-10-12 08:47[facility]11-30-2022 NotePROCEDURE: XR ANKLE LT MIN 3 V, XR FOOT LT MIN 3 VIEWS HISTORY: Pain of left ankle joint ; chronic heel pain COMPARISON: XR ankle left 07/21/2022 FINDINGS: BONES:Stable, corticated small ossification adjacent the medial malleolus with larger ossification at tip of lateral malleolus favoring sequela of remote injuries. Intact, uniform ankle mortise. Small degenerative enthesophytes at the Achilles tendon and plantar aponeurosis insertions into the calcaneus. SOFT TISSUES:No visible soft tissue swelling. EFFUSION:None visible. OTHER: Negative. IMPRESSION: 1. No acute or suspicious findings to account for patient's symptoms. 2. No appreciable change compared to prior study. Electronically authenticated by: WILLIAM GAMING Date: 2022-10-12 08:47[facility]09-08-2022 NotePROCEDURE: XR ANKLE LT MIN 3 V HISTORY: Traumatic injury ; acute pain and swelling COMPARISON: None. FINDINGS: BONES:Separate, corticated ossifications adjacent the medial and lateral malleolus favoring sequela of remote injuries. No acute fracture or dislocation. Normal joint spacing. Mild degenerative enthesopathic spurring of the calcaneus. SOFT TISSUES:Mild soft tissue swelling. EFFUSION:None visible. OTHER: Negative. IMPRESSION: 1. No acute bone abnormality or significant degenerative changes. Electronically authenticated by: WILLIAM GAMING Date: 2022-07-21 11:47[facility]02-17-2022 NotePROCEDURE: XR FOOT RT MIN 3 VIEWS HISTORY: Pain in right foot COMPARISON: XR foot right 06/25/2019 FINDINGS: BONES:Mild narrowing of the first metatarsophalangeal joint. No fracture, dislocation, bone lesion. SOFT TISSUES:No visible soft tissue swelling. EFFUSION:None visible. OTHER: Negative. IMPRESSION: 1. No acute bone abnormality. 2. Mild degenerative changes of the first metatarsophalangeal joint, stable to minimally progressed. Electronically authenticated by: WILLIAM GAMING Date: 2021-12-30 10:04[facility] No data available for this section [facility] [place] Evaluation noteNo InformationNort [facility] Other Evaluation noteNo assessment information available [facility] Work Phone: History general Narrative - Reported* Type Description Date Medical History Dyslipidemia Medical History Situational anxiety Medical History Elevated LFTs Medical History Achilles tendinitis, left leg Medical History Acute gouty arthritis Medical History Heel spur, left Medical History Contracture of left ankle Medical History Right foot pain Medical History Obesity Medical History Essential hypertension Medical History Right ankle pain Medical History Peripheral neurogenic pain Medical History Plantar fasciitis, bilateral Medical History Achilles tendinitis, right leg Medical History Peroneal tendinitis, left leg Medical History Elevated ferritin Medical History Abdominal cramping Medical History Acute reaction to situational st ress Medical History Post-COVID syndrome Medical History Bronchitis Medical History Febrile illness, acute Medical History Calcific tendinitis, other site Medical History Neuropathy of right lower extrem ity Medical History Anxiety, generalized Medical History Elevated uric acid in blood Medical History Heel spur, right Medical History Gastroesophageal reflux disease Surgical History LEFT EYE REPAIR OF MAXILLARY FR ACTURE 10/2018 Surgical History RIGHT ACHILLES REPAIR- DR. HIGH KENNEY 04/2019 Surgical History EYELID 2013 Hospitalization History SEE SURGICAL HX [facility] Other Hospital Discharge instructions No data available for this section [facility] Progress note No data available for this section [facility] Summary Purpose Family History No Family History Records FoundNo Family History Records FoundNo Family History Records Found Advance Directives Advance Directive Response Recorded Date/ Time Advance Directives No July 11:35am Reason for Referral Reason *Waiting for appt [facility] Diagnosis 1 Tear of right biceps muscle, subsequent encounter (S46.211D) Referral Organization [facility] Referring Provider First Name Bernice Referring Provider Last Name Kaylin Referring Provider Specialty Family [facility] Referred Organization [facility] Referred Provider Rufus Leung Referred Address [address] [place],[address] Referred Provider Specialty Orthopaedic Surgery Referral Priority Routine General Notes Leeanne Crockett 11:22:47 AM >received today, sent P2P Chief Complaint and Reason for Visit Chief Complaint S46.211A s46.211a Additional Source Comments (unrecognized sect ion and content) No Status Records FoundNo Status Records FoundNo Status Records Found INFORMATION SOURCE (unrecogn ized section and content) DATE CREATED AUTHOR 08/12/2022 Waylon Prabhakar [facility] DATE CREATED AUTHOR AUTHOR'S ORGANIZ ATION 11/11/2022 [facility] DATE CREATED AUTHOR AUTHOR'S ORGANIZ ATION 08/02/2023 [facility] Care Team (unrecognized sect ion and content) Team Status: Active Member Role Status Dates Jimmy Spears , DO Primary Care Provider Active Team Status: Inactive Member Role Status Dates Jimmy Spears , DO Primary Care Provider Active Rufus Leung , DO Attending Provider Active REASON FOR VISIT (unrecogniz ed section and content) labsFeet BurningmessageArmme ssageMedication, ArmmessagequestionsRight Biceps InjuryMedicationsTBHmessagemessage Goals (unrecognized section and content) Goals may be documented in a n alternate section FOR RECORDS PERTAINING TO PATIENTS WHO ARE OR HAVE BEEN ENROLLED IN A CHEMICAL DEPENDENCY/SUBSTANCEABUSE PROGRAM, SOME INFORMATION MAY BE OMITTED. This clinical summary was aggregated from multiple sources. Caution should be exercised in using it in the provision of clinical care. This summary normalizes information from multiple sources, and as a consequence, information in this document may materially change the coding, format and clinical context of patient data. In addition, data may be omitted in some cases. CLINICAL DECISIONS SHOULD BE BASED ON THE PRIMARY CLINICAL RECORDS. [employer] [facility]. provides no warranty or guarantee of the accuracy or completeness of information in this document.
== END 2023-12-25 11:33 | disposition home or self-care (01) ==
LOC: RAD 11:33
PROVIDERS: PCP Family Medicine; Visit Provider Family Medicine
DX: S22.20XD Unspecified fracture of sternum, subsequent encounter for fracture with routine healing (principal)
CPT/HCPCS: 71120

== ENCOUNTER 2024-01-25 08:21 | Outpatient (OUT) | payer BC, SELFPAY ==
--- OUTSIDE RECORDS SUMMARY | 2024-01-25 08:27 | XMS_ITS | CCD ---
Author Name Unknown Address [address] [place] [address] Organization [facility] Care Team Providers Care Family Service Counselor Name Role Phone Layne Ramírez Attending Unavailable Layne Ramírez Primary Care Physician [phone] KAYLIN, DR BERNICE Pride Admitting Unavailable MEKHI, DR WILLIAM Meléndez Consulting Unavailable EWING, DR BERNICE Pride Primary Care Unavailable EWING, DR BERNICE Pride Attending Unavailable EWING, DR BERNICE Pride Consulting Unavailable EWING, DR BERNICE Pride Primary Care Unavailable DONNY, SARAI Admitting Unavailable DONNY, SARAI Attending Unavailable DONNY, SARAI Admitting Unavailable SARAI HINES Attending Unavailable EWING, DR BERNICE Pride Primary [...] KAYLIN, DR BERNICE Pride Primary Care Unavailable REDVALE, DR EDUARD Norman Consulting Unavailable KATINA CAT [...] Unavailable DO Jimmy Spears Primary Care Provider [phone] DO Rufus Leung Attending Provider [phone] Rufus Leung Unavailable Jimmy Spears Primary Care Unavailable Rufus Leung Admitting Unavailable Rufus Leung Attending Unavailable Jimmy Spears Primary Care Unavailable Rufus Leung Admitting Unavailable Rufus Leung Attending Unavailable Allergies Allergy Classification Reported Allergen(s) Allergy Type Date of Onset Reaction(s) Facility (9 sources) traMADol Drug Allergy Comment:pt states he is not allergic to tramadol [facility] Other Medications Current Medications Medication Drug Class(es) Dates Sig (Normalized) Sig (Original) acetaminophen 325 mg / oxyCODONE hydrochloride 5 mg oral tablet (4 sources) Opioid Agonist Start: 12-25-2023 take 1 tablet by mouth every six hours Endocet 5-325 MG 1 tablet as needed Orally every 6 hrs for 7 days Dec, Active Start: 12-18-2023 take 1 tablet by ashanti th every six hours Endocet 5-325 MG 1 tablet as needed Orally every 6 hrs for 7 days Dec, Active Albuterol Sulfate 108 (90 Base) MCG/ACT (14 sources) take 1 puff(s) by inhalation every [...] day Active diazePAM 10 mg oral tablet (14 sources) Benzodiazepine Start: 2023 take 1 tablet by mouth every twelve [...] day Active methocarbamol 750 mg oral tablet (4 sources) Muscle Relaxant Methocarbamol 75 0 MG 1 taablet every 6 hrs prn Active methylPREDNISolone 4 mg oral tablet (3 sources) Corticosteroid take 1 tablet by mouth every twelve hours Medrol 4 MG 1 tablet with food or milk Orally every 12 hrs Active 24 hr metoprolol succinate 50 mg extended release oral tablet (15 sources) beta-Adrenergic Dom[place] take 1 tablet by mouth once daily Metoprolol Succinate ER 50 MG TAKE 1 TABLET BY MOUTH EVERY DAY for 90 days Active take 1 tablet by mouth once jerri y Metoprolol Succinate ER 100 MG TAKE 1 TABLET BY MOUTH EVERY DAY for 90 Active nabumetone 750 mg oral tablet (4 sources) Nonsteroidal Anti-inflammatory Drug Nabumetone 750 MG 1 tablet twice a day prn for 14 days Active omeprazole 20 mg delayed release oral capsule (13 sources) Proton Pump Inhibitor take 1 capsule [...] Problem Date Documented Date Episodic/Chronic Abdominal pain (18 sources) Unspecified abdominal pain; Translations: [Abdominal pain] Onset: 02-14-2022 Episodic Anxiety disorders (20 sources) Acute stress disorder; Translations: [Acute stress reaction] Chronic Chronic obstructive pulmonary disease and bronchiectasis (14 sources) Bronchitis; Translations: [Bronchitis, not specified as acute or chronic] Episodic Disorders of lipid metabolism (14 sources) Dyslipidemia; Translations: [Hyperlipidemia, unspecified] Chronic Esophageal disorders (14 sources) Gastroesophageal reflux disease; Translations: [Gastro-esophageal reflux disease without esophagitis] Chronic Essential hypertension (15 sources) Essential hypertension; Translations: [Essential (primary) hypertension] Chronic Fever of unknown origin (14 sources) Fever; Translations: [Fever, unspecified] Episodic Gout and other crystal arthropathies (14 sources) Gout; Translations: [Gout, unspecified] Chronic Osteoarthritis (4 sources) Primary osteoarthritis, unspecified ankle and foot; Translations: [PRIMARY OSTEOARTHRITIS UNS ANK FOOT] Onset: 09-13-2022 Chronic Other acquired deformities (1 source) Contracture, left ankle; Translations: [CONTRACTURE LEFT ANKLE] Onset: 10-15-2022 Chronic Other acquired deformities (14 sources) Joint contracture of the ankle and/or foot; Translations: [Contracture, left ankle] Chronic Other connective tissue disease (4 sources) Calcaneal spur, left foot; Translations: [CALCANEAL SPUR LEFT FOOT] Onset: 10-11-2022 Episodic Other connective tissue disease (5 sources) Pain in right foot; Translations: [PAIN IN RIGHT FOOT] Onset: 12-30-2021 Episodic Other connective tissue disease (14 sources) Peripheral neurogenic pain; Translations: [Neuralgia and neuritis, unspecified] Episodic Other connective tissue disease (20 sources) Calcaneal spur; Translations: [Calcaneal spur, right foot] Episodic Other connective tissue disease (14 sources) Peroneal tendinitis; Translations: [Peroneal tendinitis, left leg] Episodic Other connective tissue disease (20 sources) Achilles bursitis; Translations: [Achilles tendinitis, left leg] Episodic Other connective tissue disease (14 sources) Plantar fascial fibromatosis; Translations: [Plantar fascial fibromatosis] Episodic Other connective tissue disease (14 sources) Calcific tendinitis; Translations: [Calcific tendinitis, other site] Episodic Other connective tissue disease (14 sources) Pain in right foot; Translations: [Pain in right foot] Episodic Other connective tissue disease (1 source) Pain in left foot Episodic Other fractures (1 source) Unspecified fracture of sternum, initial encounter for closed fracture Episodic Other fractures (1 source) Unspecified fracture of sternum, subsequent encounter for fracture with routine healing Episodic Other nervous system disorders (14 sources) Mononeuropathy of lower limb; Translations: [Unspecified mononeuropathy of right lower limb] Chronic Other nervous system disorders (1 source) Unspecified mononeuropathy of bilateral lower limbs Chronic Other non-traumatic joint disorders (14 sources) Arthralgia of the ankle and/or foot; Translations: [Pain in right ankle and joints of right foot] Episodic Other nutritional; endocrine; and metabolic disorders (14 sources) Obesity; Translations: [Obesity, unspecified] Chronic Other nutritional; endocrine; and metabolic disorders (14 sources) Hyperuricemia without signs of inflammatory arthritis [...] 02-16-2022 Episodic Other aftercare (1 source) Other fpc (current) drug therapy; Translations: [OTH JAIL CURRENT DRUG THERAPY] Onset: 07-22-2022 Episodic Other [...] sources) Post-COVID syndrome; Translations: [Post-COVID syndrome] Unclassified (5 sources) Chronic [id number] syndrome (disorder); Translations: [Post-COVID syndrome] Results Test Name Value Interpretation Reference Range Facility MR elbow RT wo conon 023 MR elbow RT wo con [facility] [place] [address] MRI Report Signed Patient: Sung Currie MR#: [id number] : 1975 Acct:[id number] Age/Sex: 48 / M ADM Date: 07/24/23 Loc: Room: Type: [facility] Attending Dr: Rufus Leung DO Copies [...] Maciel Gonzalez M.D.07/24/2023 4:30 PM Dictation Location: [place] [address] Transcribed By: [facility] 07/24/23 1630 Dictated By: Maciel Gonzalez II, MD 07/24/23 1622 Signed By: 07/24/23 1630 [facility] MR elbow RT wo con [facility] [employer] Other MR elbow RT wo con [facility] [employer] Other MR elbow RT wo con [address] [place] [address] [employer] Other MR elbow RT wo con [address] [employer] Other MR elbow RT wo con MRI Report [facility] [employer] Other MR elbow RT wo con Signed [facility] Other MR elbow RT wo con Patient: Sung Currie MR#: [id number] [facility] [employer] Other MR elbow RT wo con : 1975 Acct:[id number] [facility] Other MR elbow RT wo con Age/Sex: 48 / M ADM Date: 07/24/23 [facility] Other MR elbow RT wo con Loc: MR Room: Type: [facility] Other MR elbow RT wo con Attending Dr: Rufus Leung DO [facility] Other MR elbow RT wo con Copies to: Rufus Leung DO [facility] Other MR elbow RT wo con Ordering Provider: Rufus Leung DO [facility] Other MR elbow RT wo con Date of Service: 07/24/23 [facility] Other MR elbow RT wo con MR/MR elbow RT wo con: S46.211A [facility] Other MR elbow RT wo con MR elbow RT wo con 07/24/2023 12:34 PM [facility] Other MR elbow RT wo con SIGNS AND SYMPTOMS: Injury to biceps with pain from right elbow into right upper arm [facility] Other MR elbow RT wo con PROTOCOL: Multiplana r multisequence MR images of the right elbow were obtained without IV contrast [facility] Other MR elbow RT wo con COMPARISON: 07/20/2023 [facility] Other MR elbow RT wo con FINDINGS: [facility] Other MR elbow RT wo con Joint fluid: There i s a small joint effusion. [facility] Other MR elbow RT wo con Medial: [facility] Other MR elbow RT wo con Ulnar collateral ligament: Intact. [facility] Other MR elbow RT wo con Common flexor tendon : Intact. [facility] Other MR elbow RT wo con Medial epicondyle: Normal. [facility] Other MR elbow RT wo con Lateral: [facility] Other MR elbow RT wo con Radial collateral ligament: Intact. [facility] Other MR elbow RT wo con Lateral ulnar collateral ligament: Intact. [facility] Other MR elbow RT wo con Common extensor tendon: There is edema at the origin of the common extensor tendon. The tendon is [facility] Other MR elbow RT wo con grossly intact.. [facility] Other MR elbow RT wo con Lateral epicondyle: Normal. [facility] Other MR elbow RT wo con Posterior: [facility] Other MR elbow RT wo con Triceps: Intact. [facility] Other MR elbow RT wo con Olecranon: There is enthesophyte formation similar to that seen on previous radiographs. [facility] Other MR elbow RT wo con Anterior: [facility] Other MR elbow RT wo con Biceps: There is a full-thickness tear of the biceps tendon at the insertion along the radial [facility] Other MR elbow RT wo con tuberosity. The biceps tendon has been retracted by 10.7 cm. [facility] Other MR elbow RT wo con Brachialis: Intact. [facility] Other MR elbow RT wo con Bicipitoradial bursa : Intact. [facility] Other MR elbow RT wo con Articular: [facility] Other MR elbow RT wo con Radio-capitellar joint: Normal. [facility] Other MR elbow RT wo con Ulno-humeral joint: Normal. [facility] Other MR elbow RT wo con Proximal radio-ulnar joint: Normal. [facility] Other MR elbow RT wo con Bones (other than subarticular marrow): Normal. [facility] Other MR elbow RT wo con Muscles: Normal. [facility] Other MR elbow RT wo con Vessels: Normal. [facility] Other MR elbow RT wo con Nerves: Cubital tunnel normal, retinaculum intact. Anconeus epitrochlearis muscle present. [facility] Other MR elbow RT wo con Intra-articular bodies: None. [facility] Other MR elbow RT wo con MR/MR elbow RT wo con [facility] Other MR elbow RT wo con IMPRESSION: [facility] Other MR elbow RT wo con There is a full-thickness tear of the biceps tendon at the insertion along the radial tuberosity. [facility] Other MR elbow RT wo con The biceps tendon sahni s been retracted by 10.7 cm. [facility] Other MR elbow RT wo con Tendinopathy is note d at the origin of the common extensor tendon. [facility] Other MR elbow RT wo con There is enthesophyt e formation along the olecranon similar to the prior radiographs. [facility] Other MR elbow RT wo con Impression dictated by: Maciel Gonzalez M.D.07/24/2023 4:30 PM [facility] Other MR elbow RT wo con Dictation Location: [facility] Other MR elbow RT wo con Transcribed By: ARLEEN 07/24/23 1499 [facility] Other MR elbow RT wo con Dictated By: Maciel Gonzalez II, MD 07/24/23 1626 [facility] Other MR elbow RT wo con Signed By: [employer] Other MR elbow RT wo con 07/24/23 1630 [facility] [employer] Other XR elbow RT 2Von 07-20-2023 XR elbow RT 2V [facility] [address] [place] [address] XRay Report Signed Patient: Sung Currie MR#: [id number] : 1975 Acct:[id number] Age/Sex: 48 / M ADM Date: 07/20/23 [place] [facility] Type: [facility] Attending Dr: Rufus Leung DO Copies [...] Nuzhat Gutierrez M.D.07/20/2023 3:40 PM Dictation Location: [place] [address] Transcribed By: [facility] 07/20/23 1540 Dictated By: Nuzhat Gutierrez MD 07/20/23 1538 Signed By: 07/20/23 1540 Normal [facility] XR elbow RT 2V [facility] [employer] Other XR elbow RT 2V [facility] [place] [facility] [employer] Other XR elbow RT 2V [address] [facility] [employer] Other XR elbow [place] [address] [address] No rt [employer] Other XR elbow RT 2V XRay Report [employer] Other XR elbow RT 2V Signed [employer] Other XR elbow RT 2V Patient: Sung Currie MR#: [id number] [place] [employer] Other XR elbow RT 2V : 1975 Acct:[id number] [facility] Other XR elbow RT 2V Age/Sex: 48 / M ADM Date: 07/20/23 [facility] Other XR elbow RT 2V Loc: [facility] Room: Type : [facility] Other XR elbow RT 2V Attending Dr: Rufus Leung DO [facility] Other XR elbow RT 2V Copies to: Rufus Leung DO [facility] Other XR elbow RT 2V Ordering Provider: Rufus Leung DO [facility] Other XR elbow RT 2V Date of Service: 07/20/23 [facility] Other XR elbow RT 2V XR/XR elbow RT 2V: Rupture of right distal biceps tendon, initial [facility] Other XR elbow RT 2V encounter [employer] Other XR elbow RT 2V RIGHT ELBOW - 4 VIEWS [facility] Other XR elbow RT 2V CLINICAL HISTORY: History of right biceps injury 4-5 months ago with pain radiating from the elbow [facility] Other XR elbow RT 2V upward. [employer] Other XR elbow RT 2V COMPARISON: None [place] [employer] Other XR elbow RT 2V AP and lateral views were obtained. No acute fracture or dislocation is noted. There is an [facility] Other XR elbow RT 2V enthesophyte at the olecranon at the insertion of triceps tendon with small adjacent corticated bony [facility] Other XR elbow RT 2V ossicles. There is minimal enthesophyte formation at the humeral condyles. A small amount of joint [facility] Other XR elbow RT 2V fluid is possible. N o focal soft tissue swelling is seen. [facility] Other XR elbow RT 2V XR/XR elbow RT 2V [facility] Other XR elbow RT 2V IMPRESSION: [employer] Other XR elbow RT 2V DEGENERATIVE CHANGES. [facility] Other XR elbow RT 2V NO DEFINITE ACUTE BONY FINDINGS. [facility] Other XR elbow RT 2V Impression dictated by: Nuzhat Gutierrez M.D.07/20/2023 3:40 PM [facility] Other XR elbow RT 2V Dictation Location: [place] [address] [facility] Other XR elbow RT 2V Transcribed By: ARLEEN 07/20/23 1540 [facility] Other XR elbow RT 2V Dictated By: Nuzhat Gutierrez MD 07/20/23 1533 [facility] Other XR elbow RT 2V Signed By: [employer] Other XR elbow RT 2V 07/20/23 1546 [employer] Other Ambulatory Visit Summaryon 0 08-03-2022 Ambulatory Visit Summary SUNG CURRIE :1975 Visit Date:08/03/2022 Ambulatory Visit Instructions Your Care Team Attending Physician - Desiree HENSLEY, Layne Primary Care Physician - Desiree HENSLEY, Layne Allergies No active allergies Normal [facility] CBC AUTO DIFFon 07-25-2022 BASO # 0.0 103/ul Normal 0.0-0.1 [facility] Comment on above: Performed By: #### C BC #### [facility] [address] [place] [address] [address] Nini Jordan Basophils/100 WBC (Bld) 0.2 % Normal 0.2-2.0 [facility] Comment on above: Performed By: #### C BC #### [facility] [address] [place] [address] [address] Nini Jordan EO # 0.0 103/ul Normal 0.0-0.7 [facility] Comment on above: Performed By: #### C BC #### [facility] [address] [place] [address] Dr. Nini Jordan Eosinophils/100 WBC (Bld) 0.2 % Critically low 0.9-7.0 [facility] Comment on above: Performed By: #### C BC #### [facility] [address] [place] [address] Dr. Nini Jordan Erythrocyte distribution width (RBC) [Ratio] 12.6 % Normal 11.0-15.0 [facility] Comment on above: Performed By: #### C BC #### [facility] [address] [place] [address] Dr. Nini Jordan Hematocrit (Bld) [Volume fraction] 42.5 % Normal 42.0-54.0 [facility] Comment on above: Performed By: #### C BC #### [facility] [address] [place] [address] [address] Nini Jordan Hemoglobin (Bld) [Mass/Vol] 14.0 g/dL Normal 14.0-18.0 [facility] Comment on above: Performed By: #### C BC #### [facility] [address] [place] [address] [address] Nini Jordan IG # 0.06 10e3/ul Critically high 0.00-0.03 [facility] Comment on above: Performed By: #### C BC #### [facility] [address] [place] [address] Dr. Nini Jordan IG % 0.6 % Critically high 0.0-0.5 [facility] Comment on above: Performed By: #### C BC #### [facility] [address] [place] [address] Dr. Nini Jordan LYMPH # 1.6 103/ul Normal 1.2-3.8 [facility] Comment on above: Performed By: #### C BC #### [facility] [address] [place] [address] Dr. Nini Jordan Lymphocytes/100 WBC (Bld) 16.5 % Critically low 20.5-60.0 [facility] Comment on above: Performed By: #### C BC #### [facility] [address] [place] [address] Dr. Nini Jordan MANUAL DIFF REQ NO Normal [facility] Comment on above: Performed By: #### C BC #### [facility] [address] [place] [address] Dr. Nini Jordan MCH (RBC) [Entitic mass] 32.6 pg Normal 25.9-34.0 [facility] Comment on above: Performed By: #### C BC #### [facility] [address] [place] [address] Dr. Nini Jordan MCHC (RBC) [Mass/Vol] 32.9 g/dL Normal 29.9-35.2 [facility] Comment on above: Performed By: #### C BC #### [facility] [address] [place] [address] Dr. Nini Jordan MCV (RBC) [Entitic vol] 98.8 fL Critically high 80.0-94.0 [facility] Comment on above: Performed By: #### C BC #### [facility] [address] [place] [address] Dr. Nini Jordan MONO # 0.7 103/ul Normal 0.3-0.8 [facility] Comment on above: Performed By: #### C BC #### [facility] [address] [place] [address] [address] Nini Jordan Monocytes/100 WBC (Bld) 6.8 % Normal 1.7-12.0 [facility] Comment on above: Performed By: #### C BC #### [facility] [address] [place] [address] [address] Nini Jordan NEUT # 7.4 103/ul Critically high 1.4-6.5 [facility] Comment on above: Performed By: #### C BC #### [facility] [address] [place] [address] [address] Nini Jordan Neutrophils/100 WBC (Bld) 75.7 % Critically high 43.0-75.0 [facility] Comment on above: Performed By: #### C BC #### [facility] [address] [place] [address] [address] Nini Jordan Platelet mean volume (Bld) [Entitic vol] 9.4 fL Critically low 9.5-13.5 [facility] Comment on above: Performed By: #### C BC #### [facility] [address] [place] [address] [address] Nini Jordan PLT 213 103/ul Normal 150-450 [facility] Comment on above: Performed By: #### C BC #### [facility] [address] [place] [address] [address] Nini Jordan RBC 4.30 106/ul Critically low 4.70-6.10 [facility] Comment on above: Performed By: #### C BC #### [facility] [address] [place] [address] [address] Nini Jordan WBC 9.8 103/ul Normal 4.0-11.0 [facility] Comment on above: Performed By: #### C BC #### [facility] [address] [place] [id number] Nini Jordan LIPID PROFILEon 07-25-2022 CHOL-HDL RATIO NORM SEE BELOW Normal [facility] Comment on above: Result Comment: 3.3 - 4.4 LOW RISK 4.4 - 7.1 AVERAGE RISK 7.1 - 11.0 MODERATE RISK >11.0 HIGH RISK Performed By: #### C BC #### [facility] [address] [place], [place] [address] Dr. Nini Jordan Cholesterol [Mass/Vol] 243 mg/dL Critically high <=200 [facility] Comment on above: Performed By: #### C BC #### [facility] [address] [place], [place] [address] Dr. Nini Jordan Cholesterol in HDL [Mass/Vol] 60 mg/dL Normal 40-60 [facility] Comment on above: Performed By: #### C BC #### [facility] [address] [place] [address] [address] Nini Jordan Cholesterol in LDL [Mass/Vol] 162.6 mg/dL Normal [facility] Comment on above: Performed By: #### C BC #### [facility] [address] [place] [address] [address] Nini Jordan Cholesterol.total/C holesterol in HDL [Mass ratio] 4.1 {ratio} Normal [facility] Comment on above: Performed By: #### C BC #### [facility] [address] [place] [address] [address] Nini Jordan HDL NORMAL > or = 60 mg/dl - LO W CARDIOVASCULAR RISK <40 mg/dl - HIGH CARDIOVASCULAR RISK Normal [facility] Comment on above: Performed By: #### C BC #### [facility] [address] [place] [address] [address] Nini Jordan LDL CALC NORMAL SEE BELOW Normal [facility] Comment on above: Result Comment: <100 mg/dl OPTIMAL 100 - 129 mg/dl NEAR OR ABOVE OPTIMAL 130 - 159 mg/dl BORDERLINE HIGH 160 - 189 mg/dl HIGH >190 mg/dl VERY HIGH Performed By: #### C BC #### [facility] [address] [place] [address] [address] Nini Jordan Triglyceride [Mass/Vol] 102 mg/dL Normal <=150 [facility] Comment on above: Performed By: #### C BC #### [facility] [address] [place] [address] [address] Nini Jordan VLDL CALC 20.4 mg/dL Normal [facility] Comment on above: Performed By: #### C BC #### [facility] [address] [place] [address] Dr. Nini Jordan PROF 14(COMP METB)on 022 Albumin [Mass/Vol] 3.3 g/dL Critically low 3.4-5.0 [facility] Comment on above: Performed By: #### C BC #### [facility] [address] [place] [address] Dr. Nini Jordan Albumin/Globulin [Mass ratio] 0.9 {ratio} Normal [facility] Comment on above: Performed By: #### C BC #### [facility] [address] [place] [address] Dr. Nini Jordan ALP [Catalytic activity/Vol] 72 U/L Normal 46-116 [facility] Comment on above: Performed By: #### C BC #### [facility] [address] [place] [address] Dr. Nini Jordan ALT [Catalytic activity/Vol] 46 U/L Normal 16-63 [facility] Comment on above: Performed By: #### C BC #### [facility] [address] [place] [address] Dr. Nini Jordan Anion gap [Moles/Vol] 11.0 mmol/L Normal [facility] Comment on above: Performed By: #### C BC #### [facility] [address] [place] [address] Dr. Nini Jordan AST [Catalytic activity/Vol] 25 U/L Normal 15-37 [facility] Comment on above: Performed By: #### C BC #### [facility] [address] [place] [address] Dr. Nini Jordan Bilirubin [Mass/Vol] 0.3 mg/dL Normal 0.2-1.0 [facility] Comment on above: Performed By: #### C BC #### [facility] [address] [place] [address] Dr. Nini Jordan Calcium [Mass/Vol] 8.7 mg/dL Normal 8.5-10.1 [facility] Comment on above: Performed By: #### C BC #### [facility] [address] [place] [address] [address] Nini Jordan Chloride [Moles/Vol] 99 mmol/L Normal 98-107 [facility] Comment on above: Performed By: #### C BC #### [facility] [address] [address] [address] Nini Jordan CO2 [Moles/Vol] 27.3 mmol/L Normal 21.0-32.0 [facility] Comment on above: Performed By: #### C BC #### [facility] [address] [address] [address] Nini Jordan Creatinine [Mass/Vol] 0.87 mg/dL Normal 0.70-1.30 [facility] Comment on above: Performed By: #### C BC #### [facility] [address] [place] [address] Dr. Nini Jordan EGFR-AF SERBIAN >60 Normal >=60 [facility] Comment on above: Performed By: #### C BC #### [facility] [address] [place] [address] Dr. Nini Jordan EGFR-NON AF SERBIAN >60 Normal >=60 [facility] Comment on above: Performed By: #### C BC #### [facility] [address] [address] [address] Nini Jordan Globulin (S) [Mass/Vol] 3.7 g/dL Normal [facility] Comment on above: Performed By: #### C BC #### [facility] [address] [address] [address] Nini Jordan Glucose [Mass/Vol] 109 mg/dL Critically high 74-106 [facility] Comment on above: Performed By: #### C BC #### [facility] [address] [address] [address] Nini Jordan Potassium [Moles/Vol] 3.3 mmol/L Critically low 3.5-5.1 [facility] Comment on above: Performed By: #### C BC #### [facility] [address] [place] [address] Dr. Niin Jordan Protein [Mass/Vol] 7.0 g/dL Normal 6.4-8.2 [facility] Comment on above: Performed By: #### C BC #### [facility] [address] [place] [address] Dr. Nini Jordan Sodium [Moles/Vol] 134 mmol/L Critically low 136-145 [facility] Comment on above: Performed By: #### C BC #### [facility] [address] [place] [address] Dr. Nini Jordan Urea nitrogen [Mass/Vol] 20.0 mg/dL Critically high 7.0-18.0 [facility] Comment on above: Performed By: #### C BC #### [facility] [address] [place] [address] Dr. Nini Jordan Urea nitrogen/Creatinine [Mass ratio] 23.0 mg/mg Normal [facility] Comment on above: Performed By: #### C BC #### [facility] [address] [place] [address] Dr. Nini Jordan AMYLASEon 02-14-2022 AMYL <30 Normal 25-115 [facility] Comment on above: Performed By: #### C BC #### [facility] [address] [place] [address] Dr. Nini Jordan CBC AUTO DIFFon 02-14-2022 BASO # 0.0 103/ul Normal 0.0-0.1 [facility] Comment on above: Performed By: #### C BC #### [facility] [address] [place] [address] Dr. Nini Jordan Basophils/100 WBC (Bld) 0.3 % Normal 0.2-2.0 [facility] Comment on above: Performed By: #### C BC #### [facility] [address] [place] [address] Dr. Nini Jordan EO # 0.0 103/ul Normal 0.0-0.7 [facility] Comment on above: Performed By: #### C BC #### [facility] [address] [place], [place] [id number] Dr. Nini Jordan Eosinophils/100 WBC (Bld) 0.1 % Critically low 0.9-7.0 [facility] Comment on above: Performed By: #### C BC #### [facility] [address] [place] [address] Dr. Nini Jordan Erythrocyte distribution width (RBC) [Ratio] 13.4 % Normal 11.0-15.0 [facility] Comment on above: Performed By: #### C BC #### [facility] [address] [place] [address] Dr. Nini Jordan Hematocrit (Bld) [Volume fraction] 44.2 % Normal 42.0-54.0 [facility] Comment on above: Performed By: #### C BC #### [facility] [address] [place] [address] Dr. Nini Jordan Hemoglobin (Bld) [Mass/Vol] 14.8 g/dL Normal 14.0-18.0 [facility] Comment on above: Performed By: #### C BC #### [facility] [address] [place] [address] Dr. Nini Jordan IG # 0.11 10e3/ul Critically high 0.00-0.03 [facility] Comment on above: Performed By: #### C BC #### [facility] [address] [place] [address] Dr. Nini Jordan IG % 0.7 % Critically high 0.0-0.5 [facility] Comment on above: Performed By: #### C BC #### [facility] [address] [place] [address] Dr. Nini Jordan LYMPH # 1.6 103/ul Normal 1.2-3.8 [facility] Comment on above: Performed By: #### C BC #### [facility] [address] [place] [address] Dr. Nini Jordan Lymphocytes/100 WBC (Bld) 10.3 % Critically low 20.5-60.0 [facility] Comment on above: Performed By: #### C BC #### [facility] [address] [place] [address] Dr. Nini Jordan MANUAL DIFF REQ NO Normal [facility] Comment on above: Performed By: #### C BC #### [facility] [address] [place] [address] Dr. Nini Jordan MCH (RBC) [Entitic mass] 31.6 pg Normal 25.9-34.0 [facility] Comment on above: Performed By: #### C BC #### [facility] [address] [place] [address] Dr. Nini Jordan MCHC (RBC) [Mass/Vol] 33.5 g/dL Normal 29.9-35.2 [facility] Comment on above: Performed By: #### C BC #### [facility] [address] [place] [address] Dr. Nini Jordan MCV (RBC) [Entitic vol] 94.2 fL Critically high 80.0-94.0 [facility] Comment on above: Performed By: #### C BC #### [facility] [address] [place] [address] Dr. Nini Jordan MONO # 1.0 103/ul Critically high 0.3-0.8 [facility] Comment on above: Performed By: #### C BC #### [facility] [address] [place] [address] Dr. Nini Jordan Monocytes/100 WBC (Bld) 6.4 % Normal 1.7-12.0 [facility] Comment on above: Performed By: #### C BC #### [facility] [address] [place] [address] Dr. Nini Jordan NEUT # 12.5 103/ul Critically high 1.4-6.5 [facility] Comment on above: Performed By: #### C BC #### [facility] [address] [place] [address] Dr. Nini Jordan Neutrophils/100 WBC (Bld) 82.2 % Critically high 43.0-75.0 [facility] Comment on above: Performed By: #### C BC #### [facility] [address] [place] [address] Dr. Nini Jordan Platelet mean volume (Bld) [Entitic vol] 9.4 fL Critically low 9.5-13.5 [facility] Comment on above: Performed By: #### C BC #### [facility] [address] [address] [address] Nini Jordan PLT 327 103/ul Normal 150-450 [facility] Comment on above: Performed By: #### C BC #### [facility] [address] [address] [address] Nini Jordan RBC 4.69 106/ul Critically low 4.70-6.10 [facility] Comment on above: Performed By: #### C BC #### [facility] [address] [address] [address] Nini Jordan WBC 15.2 103/ul Critically high 4.0-11.0 [facility] Comment on above: Performed By: #### C BC #### [facility] [address] ABD/PELV W CONon [...] EDUARD QUIROS Date: 2022-02-14 15:30 Normal [facility] ETHANOL (BLD ALC)on 02-15-20 22 ALC NOTE NOTE: 80 mg/dl is [facility] legal limit for a blood alcohol level Normal [facility] Comment on above: Performed By: #### C BC #### [facility] [address] [place] [address] Dr. Nini Jordan Ethanol [Mass/Vol] mg/dL Normal [facility] Comment on above: Performed By: #### C BC #### [facility] [address] [place] [address] Dr. Nini Jordan GI PANEL (PCR)on 02-14-2022 Adenovirus F 40/41 Not detected Normal NOT DETECTED [facility] Comment on above: Performed By: #### C BC #### [facility] [address] [place] [address] Dr. Nini Jordan Astrovirus Not detected Normal NOT DETECTED [facility] Comment on above: Performed By: #### C BC #### [facility] [address] [place] [address] Dr. Nini Tobias Diff toxin A/B Not detected Normal NOT DETECTED [facility] Comment on above: Performed By: #### C BC #### [facility] [address] [place] [address] Dr. Nini Jordan Campylobacter Not detected Normal NOT DETECTED [facility] Comment on above: Performed By: #### C BC #### [facility] [address] [place] [address] Dr. Nini Jordna Cryptosporidium Not detected Normal NOT DETECTED [facility] Comment on above: Performed By: #### C BC #### [facility] [address] [place] [address] Dr. Nini Jordan Cyclos. Cayetanensis Not detected Normal NOT DETECTED [facility] Comment on above: Performed By: #### C BC #### [facility] [address] [place] [address] Dr. Nini Jordan E. Coli O157 Not Applicable Normal Not Applicable [facility] Comment on above: Performed By: #### C BC #### [facility] [address] [address] [address] Nini Jordan E. histolytica Not detected Normal NOT DETECTED [facility] Comment on above: Performed By: #### C BC #### [facility] [address] [place] [address] Dr. Nini Jordan EAEC Not detected Normal NOT DETECTED [facility] Comment on above: Performed By: #### C BC #### [facility] [address] [place] [address] Dr. Nini Jordan EIEC Not detected Normal NOT DETECTED [facility] Comment on above: Performed By: #### C BC #### [facility] [address] [place] [address] Dr. Nini Jordan EPEC Not detected Normal NOT DETECTED [facility] Comment on above: Performed By: #### C BC #### [facility] [address] [place] [address] Dr. Nini Jordan ETEC Not detected Normal NOT DETECTED [facility] Comment on above: Performed By: #### C BC #### [facility] [address] [place] [address] Dr. Nini Jordan G. Lamblia Not detected Normal NOT DETECTED [facility] Comment on above: Performed By: #### C BC #### [facility] [address] [place] [address] Dr. Nini ANDRESL CONTROLS PASSED Normal [facility] Comment on above: Performed By: #### C BC #### [facility] [address] [place] [address] Dr. Nini PETERSEN RENNY HEADER GI PANEL BACTERIA Normal [facility] Comment on above: Performed By: #### C BC #### [facility] [address] [place] [address] Dr. Nini PETERSENHD ECOLI GI PANEL DIARRHEAGENIC E.COLI / SHIGELLA Normal [facility] Comment on above: Performed By: #### C BC #### [facility] [address] [address] [address] Nini GOSS INFO SEE BELOW Normal [facility] Comment on above: Result Comment: EAEC - Enteroaggregative E. Coli EPEC- Enteropathogenic E. Coli ETEC- Enterotoxigenic E. Coli lt/st STEC- Shigella-like toxin-producing E. Coli stx1/stx2 EIEC- Shigella/Enteroinvasive E. Coli Performed By: #### C BC #### [facility] [address] [address] [address] Nini GOSS PARASITES GI PANEL PARASITES Normal [facility] Comment on above: Performed By: #### C BC #### [facility] [address] [address] [address] Nini GOSS VIRUS GI PANEL VIRUSES Normal [facility] Comment on above: Performed By: #### C BC #### [facility] [address] [address] [address] Nini Jordan Norovirus GI/GII Not detected Normal NOT DETECTED [facility] Comment on above: Performed By: #### C BC #### [facility] [address] [address] [address] Nini Jordan P. Shigelloides Not detected Normal NOT DETECTED [facility] Comment on above: Performed By: #### C BC #### [facility] [address] [address] [address] Nini Jordan Rotavirus A Not detected Normal NOT DETECTED [facility] Comment on above: Performed By: #### C BC #### [facility] [address] [address] [address] Nini Jordan Salmonella Not detected Normal NOT DETECTED [facility] Comment on above: Performed By: #### C BC #### [facility] [address] [address] [address] Nini Jordan Sapovirus Not detected Normal NOT DETECTED [facility] Comment on above: Performed By: #### C BC #### [facility] [address] [place] [address] Dr. Nini Jordan STEC Not detected Normal NOT DETECTED [facility] Comment on above: Performed By: #### C BC #### [facility] [address] [place] [address] Dr. Nini Jordan Vibrio Not detected Normal NOT DETECTED [facility] Comment on above: Performed By: #### C BC #### [facility] [address] [place] [address] Dr. Nini Jordan Vibrio Cholera Not detected Normal NOT DETECTED [facility] Comment on above: Performed By: #### C BC #### [facility] [address] [place] [address] Dr. Nini Jordan Y. Enterocolitica Not detected Normal NOT DETECTED [facility] Comment on above: Performed By: #### C BC #### [facility] [address] [place] [address] Dr. Nini Jordan LACTATE/LACTIC ACIDon 2021 Lactate [Moles/Vol] 1.2 mmol/L Normal 0.7-2.0 [facility] Comment on above: Performed By: #### L ACT #### [facility] [address] [place] [address] Dr. Nini Jordan LIPASEon 02-14-2022 Lipase [Catalytic activity/Vol] 88.0 U/L Normal 23.0-300.0 [facility] Comment on above: Performed By: #### C BC #### [facility] [address] [place] [address] Dr. Nini Jordan PROF 14(COMP METB)on 022 Albumin [Mass/Vol] 3.8 g/dL Normal 3.4-5.0 [facility] Comment on above: Performed By: #### C BC #### [facility] [address] [place] [address] Dr. Nini Jordan Albumin/Globulin [Mass ratio] 0.9 {ratio} Normal [facility] Comment on above: Performed By: #### C BC #### [facility] [address] [place] [address] Dr. Nini Jordan ALP [Catalytic activity/Vol] 106 U/L Normal 46-116 [facility] Comment on above: Performed By: #### C BC #### [facility] [address] [place] [address] Dr. Nini Jordan ALT [Catalytic activity/Vol] 52 U/L Normal 16-63 [facility] Comment on above: Performed By: #### C BC #### [facility] [address] [place] [address] Dr. Nini Jordan Anion gap [Moles/Vol] 14.6 mmol/L Normal [facility] Comment on above: Performed By: #### C BC #### [facility] [address] [place] [address] Dr. Nini Jordan AST [Catalytic activity/Vol] 28 U/L Normal 15-37 [facility] Comment on above: Performed By: #### C BC #### [facility] [address] [place] [address] Dr. Nini Jordan Bilirubin [Mass/Vol] 0.5 mg/dL Normal 0.2-1.3 [facility] Comment on above: Performed By: #### C BC #### [facility] [address] [place] [address] Dr. Nini Jordan Calcium [Mass/Vol] 9.1 mg/dL Normal 8.5-10.1 [facility] Comment on above: Performed By: #### C BC #### [facility] [address] [place] [address] Dr. Nini Jordan Chloride [Moles/Vol] 100 mmol/L Normal 98-107 [facility] Comment on above: Performed By: #### C BC #### [facility] [address] [place] [address] Dr. Nini Jordan CO2 [Moles/Vol] 24.9 mmol/L Normal 22.0-30.0 [facility] Comment on above: Performed By: #### C BC #### [facility] [address] [place] [address] Dr. Nini Jordan Creatinine [Mass/Vol] 1.02 mg/dL Normal 0.66-1.25 [facility] Comment on above: Performed By: #### C BC #### [facility] [address] [address] [address] Nini Jordan EGFR-AF SERBIAN >60 Normal >=60 [facility] Comment on above: Performed By: #### C BC #### [facility] [address] [address] [address] Nini Jordan EGFR-NON AF SERBIAN >60 Normal >=60 [facility] Comment on above: Performed By: #### C BC #### [facility] [address] [address] [address] Nini Jordan Globulin (S) [Mass/Vol] 4.1 g/dL Normal [facility] Comment on above: Performed By: #### C BC #### [facility] [address] [place] [address] Dr. Nini Jordan Glucose [Mass/Vol] 135 mg/dL Critically high 74-106 [facility] Comment on above: Performed By: #### C BC #### [facility] [address] [address] [address] Nini Jordan Potassium [Moles/Vol] 3.5 mmol/L Normal 3.4-5.0 [facility] Comment on above: Performed By: #### C BC #### [facility] [address] [place] [address] Dr. Nini Jordan Protein [Mass/Vol] 7.9 g/dL Normal 6.1-8.2 [facility] Comment on above: Performed By: #### C BC #### [facility] [address] [address] [address] Nini Jordan Sodium [Moles/Vol] 136 mmol/L Critically low 137-145 [facility] Comment on above: Performed By: #### C BC #### [facility] [address] [place] [address] Dr. Nini Jordan Urea nitrogen [Mass/Vol] 17.0 mg/dL Normal 7.0-18.0 [facility] Comment on above: Performed By: #### C BC #### [facility] [address] [place] [address] Dr. Nini Jordan Urea nitrogen/Creatinine [Mass ratio] 16.7 mg/mg Normal [facility] Comment on above: Performed By: #### C BC #### [facility] [address] [place] [address] Dr. Nini Jordan PROTIMEon 02-14-2022 INR Coag (PPP) [Relative time] 0.93 {INR} Normal [facility] Comment on above: Performed By: #### P TT, PT #### [facility] [address] [place] [address] Dr. Nini Jodran INR GUIDELINES SEE BELOW Normal [facility] Comment on above: Result Comment: YURIY RED INR: 2.0 - 3.0 CONDITIONS NOT LISTED BELOW 2.5 - 3.5 FOR PROSTHETIC HEART VALVE REPLACEMENT 2.5 - 3.5 RECURRENT THROMBOSIS Performed By: #### P TT, PT #### [facility] [address] [place] [address] Dr. Nini Jordan PT Coag (PPP) [Time] 10.1 s Normal 9.0-11.6 [facility] Comment on above: Performed By: #### P TT, PT #### [facility] [address] [place] [address] Dr. Nini Jordan PTTon 02-14-2022 aPTT Coag (Bld) [Time] 24.8 s Normal 22.3-36.2 [facility] Comment on above: Performed By: #### P TT, PT #### [facility] [address] [place] [address] Dr. Nini Jordan Vital Signs Date Time Vital Sign Value Performing Clinician Facility 12-25-2023 11:00-0500 Body height 172.72 cm Bernice Ewing Other [facility] Other 12-25-2023 11:00-0500 Body mass index (BMI) [Ratio] 34.15 kg/m2 Bernice Ewing Other [facility] Other 12-25-2023 11:00-0500 Body weight 101.88 kg Bernice Ewing Other [facility] Other 12-25-2023 11:00-0500 Diastolic blood pressure 88 mm[Hg] Bernice Ewing Other [facility] Other 12-25-2023 11:00-0500 Systolic blood pressure 147 mm[Hg] Bernice Ewing Other [facility] Other 12-18-2023 14:00-0500 Body height 172.72 cm Bernice Ewing Other [facility] Other 12-18-2023 14:00-0500 Body mass index (BMI) [Ratio] 34.06 kg/m2 Bernice Ewing Other [facility] Other 12-18-2023 14:00-0500 Body weight 101.61 kg Bernice Ewing Other [facility] Other 12-18-2023 14:00-0500 Diastolic blood pressure 96 mm[Hg] Bernice Ewing Other [facility] Other 12-18-2023 14:00-0500 Systolic blood pressure 152 mm[Hg] Bernice Ewing Other [facility] Other 09-14-2023 11:00-0400 Body height 172.72 cm Bernice Ewing Other [facility] Other 09-14-2023 11:00-0400 Body mass index (BMI) [Ratio] 34.57 kg/m2 Bernice Ewing Other [facility] Other 09-14-2023 11:00-0400 Body weight 103.15 kg Bernice Ewing Other [facility] Other 09-14-2023 11:00-0400 Diastolic blood pressure 82 mm[Hg] Bernice Ewing Other [facility] Other 09-14-2023 11:00-0400 Systolic blood pressure 121 mm[Hg] Bernice Ewing Other [facility] Other 07-20-2023 13:30-0400 Body height 172.72 cm Rufus Leung Other [facility] Other 07-20-2023 13:30-0400 Body mass index (BMI) [Ratio] 33.45 kg/m2 Rufus Mullinsley Other [facility] Other 07-20-2023 13:30-0400 Body weight 99.79 kg Rufusnida Mullinsley Other [facility] Other 07-10-2023 10:15-0400 Body height 172.72 cm Bernice Ewing Other [facility] Other 07-10-2023 10:15-0400 Body mass index (BMI) [Ratio] 33.3 kg/m2 Bernice Ewing Other [facility] Other 07-10-2023 10:15-0400 Body weight 99.34 kg Bernice Ewing Other [facility] Other 07-10-2023 10:15-0400 Diastolic blood pressure 95 mm[Hg] Bernice Ewing Other [facility] Other 07-10-2023 10:15-0400 Systolic blood pressure 147 mm[Hg] Bernice Ewing Other [facility] Other 03-14-2023 16:15-0400 Body height 172.72 cm Bernice Ewing Other [facility] Other 03-14-2023 16:15-0400 Body mass index (BMI) [Ratio] 34.82 kg/m2 Bernice Ewing Other [facility] Other 03-14-2023 16:15-0400 Body weight 103.87 kg Bernice Ewing Other [facility] Other 03-14-2023 16:15-0400 Diastolic blood pressure 74 mm[Hg] Bernice Ewing Other [facility] Other 03-14-2023 16:15-0400 SaO2% (BldA) [Mass fraction] 98 % Bernice Ewing Other [facility] Other 03-14-2023 16:15-0400 Systolic blood pressure 132 mm[Hg] Bernice Ewing Other [facility] Other 12-02-2022 11:00-0500 Body height 172.72 cm Bernice Ewing Other [facility] Other 12-02-2022 11:00-0500 Body mass index (BMI) [Ratio] 36.64 kg/m2 Bernice Ewing Other [facility] Other 12-02-2022 11:00-0500 Body weight 109.32 kg Bernice Ewing Other [facility] Other 12-02-2022 11:00-0500 Diastolic blood pressure 72 mm[Hg] Bernice Ewing Other [facility] Other 12-02-2022 11:00-0500 SaO2% (BldA) [Mass fraction] 97 % Bernice Ewing Other [facility] Other 12-02-2022 11:00-0500 Systolic blood pressure 116 mm[Hg] Bernice Ewing Other [facility] Other Encounters Encounter Date Encounter Type Care Provider Facility Start: 12-25-2023 End: 12-25-2023 ambulatory Bernice Ewing Other [facility] Other Start: 12-25-2023 Office outpatient vi sit 15 minutes Bernice Ewing [facility] Start: 12-18-2023 End: 12-18-2023 ambulatory Bernice Ewing Other [facility] Other Start: 12-18-2023 Office outpatient vi sit 15 minutes Bernice Ewing [facility] Start: 12-18-2023 Telephone encounter Bernice Ewing [facility] Start: 09-14-2023 End: 09-14-2023 ambulatory Bernice Ewing Other [facility] Other Start: 09-14-2023 Office outpatient vi sit 15 minutes Bernice Ewing [facility] Start: 07-25-2023 End: 07-25-2023 ambulatory Rufus Lenug Other [facility] Other Start: 07-25-2023 Telephone encounter Rufus Leung [facility] Start: 07-24-2023 End: 07-24-2023 ambulatory Jimmy House Facility:[facility] Start: 07-24-2023 End: 07-24-2023 ambulatory DO Jimmy House Work Phone: [facility] Work Phone: Start: 07-24-2023 End: 07-24-2023 Patient encounter procedure DO Jimmy House Work Phone: [facility] [place] Work Phone: Start: 07-20-2023 End: 07-20-2023 ambulatory Jimmy House Facility:[facility] Start: 07-20-2023 Office outpatient ne w 45 minutes Rufus Leung [facility] Start: 07-20-2023 End: 07-20-2023 ambulatory DO Jimmy Spears Work Phone: [facility] Work Phone: Start: 07-20-2023 End: 07-20-2023 Patient encounter procedure DO Jimmy Spears Work Phone: [facility] Start: 07-10-2023 End: 07-10-2023 ambulatory Bernice Ewing Other [facility] Other Start: 07-10-2023 Office outpatient vi sit 15 minutes Bernice Ewing [facility] Start: 07-07-2023 End: 07-07-2023 ambulatory Bernice Ewing Other [facility] Other Start: 07-07-2023 Telephone encounter Bernice Ewing [facility] Start: 05-01-2023 End: 05-01-2023 ambulatory Bernice Ewing Other [facility] Other Start: 05-01-2023 Telephone encounter Bernice Ewing [facility] Start: 03-14-2023 End: 03-14-2023 ambulatory Bernice Ewing Other [facility] Other Start: 03-14-2023 Office outpatient vi sit 15 minutes Bernice Ewing [facility] Start: 01-27-2023 End: 01-27-2023 ambulatory Bernice Ewing Other [facility] Other Start: 01-27-2023 Telephone encounter Bernice Ewing [facility] Start: 12-08-2022 End: 12-08-2022 ambulatory Bernice Ewing Other [facility] Other Start: 12-08-2022 Telephone encounter Bernice Ewing [facility] Start: 12-02-2022 End: 12-02-2022 ambulatory Bernice Ewing Other [place] [employer] Other Start: 12-02-2022 Encounter for genera l adult medical examination without abnormal findings Bernice Ewing [facility] Start: 12-02-2022 Office outpatient vi sit 15 minutes Bernice Ewing [facility] Start: 10-11-2022 End: 10-12-[address] BERNICE EWING Facility:[facility] Start: 09-13-2022 End: 10-20-[address] BERNICE EWING Facility:[facility] Start: 08-30-[address] BERNICE EWING Facil ity:[facility] Start: 08-05-[address] BERNICE EWING Facil ity:[facility] Start: 08-03-2022 End: 08-04-2022 ambulatory Layne Gudimella Facility:[facility] Start: 08-03-2022 End: 08-03-2022 Patient encounter procedure Layne Gudimella [facility] [place] Start: 07-30-2022 Encounter for genera l adult medical examination without abnormal findings DR BERNICE EWING [facility] Start: 07-28-2022 ambulatory Layne Gudimella Facili ty:[facility] Start: 07-25-2022 End: 07-26-[address] [...] 07-24-2023 MRI of right elbow DO C harles House Work Phone: Start: 07-20-2023 Plain X-ray of right elbow DO Jimmy Spears Work Phone: Immunizations Immunization Date Immunization Notes Care Provider Ponce fernandezcolleen 09-02-2021 influenza virus vaccine, split virus (incl. purified surface antigen) Bernice Ewing Other [facility] Other 09-02-2021 influenza virus vaccine, unspecified formulation Layne Gudimella [facility] 03-25-2021 SARS-CoV-2 (COVID-19 ) mRNA BNT-162b2 vax Layne Gudimella [facility] 03-04-2021 SARS-CoV-2 (COVID-19 ) mRNA BNT-162b2 vax Layne Gudimella [facility] 08-23-2020 influenza virus vaccine, split virus (incl. purified surface antigen) Bernice Ewing Other [facility] Other 08-23-2020 influenza virus vaccine, unspecified formulation Layne Gudimella [facility] Payers Date Payer Category Payer Self-pay 2011 Private Health Insurance [id number] 1975 Unknown [id number] 1975 Unknown [id number] 1975 Unknown [id number] 1976 Unknown [id number] 1975 Unknown [id number] 1975 Unknown [id number] 1975 Unknown [id number] 1976 Unknown [id number] [id number] 1975 Unknown [id number] [id number] 1975 Unknown [id number] 1959 Unknown [id number] Private Health Insurance [employer] [id number] Private Health Insurance [employer] [id number] Unknown [id number] Unknown [id number] Social History Date Type Detail Facility Tobacco smoking status No Smokin g Status Entered [facility] Sex Assigned At Male [facility] Start: 1975 Sex Assigned At Male [facility] Clinical Notes 12-30-2021 to 12-25-2023 Note Date & Type Note Facility 12-25-2023 Evaluation note Encounter Date Diagnosis Assessment Notes Dec, Closed fracture of sternum with routine healing, unspecified portion of sternum, subsequent encounter (ICD-10 - S22.20XD) Reviewed O[facility]s report Recheck Xray today. refilled pain med. call w xray results. [facility] Other 02-05-2024 Evaluation note* Encounter Date Diagnosis Assessment Notes Treatment Notes Treatment Clinical Notes Dec, Closed fracture of sternum, unspecified portion of sternum, initial encounter (ICD-10 - S22.20XA) Followup in 1 week - discussed off work and note provided. [facility] Other 11-02-2023 Evaluation note* Encounter Date Diagnosis [...] left foot (ICD-10 - M79.672) as above [facility] Other 09-07-2023 Evaluation note* Encounter Date Diagnosis [...] ongoing plan once MRI results are obtained. [facility] Other 08-28-2023 Evaluation note* Encounter Date Diagnosis Assessment Notes Treatment Notes Treatment Clinical Notes Jun, Tear of right biceps muscle, subsequent encounter (ICD-10 - S46.211D) Pt agrees to referral to ortho for possible bicep tendon repair. Jun, Anxiety, generalized (ICD-10 - F41.1) Symptoms have worsened. Requests an increased amount of prn med. [facility] Other 05-02-2023 Evaluation note* Encounter Date Diagnosis Assessment Notes Treatment Notes Treatment Clinical Notes March, Strain of right elbow and forearm, initial encounter (ICD-10 - S56.911A) Improving, per pt. Consider PT and NSAIDs if pain does not improve further. [facility] Other 01-20-2023 Evaluation note* Encounter Date Diagnosis Assessment Notes Treatment Notes Treatment Clinical Notes Nov, Peripheral neuritis of both feet (ICD-10 - G57.93) Discussed problem at length labs will be ordered under wellness code. Patient states he gets labs once a year under wellness code. Nov, Wellness examination (ICD-10 - Z00.00) [facility] Other 11-30-2022 NotePROCEDURE: XR ANKLE LT MIN [...] Electronically authenticated by: WILLIAM GAMING Date: 2022-10-12 08:47[facility]11-30-2022 NotePROCEDURE: XR ANKLE LT MIN 3 V, [...] Electronically authenticated by: WILLIAM GAMING Date: 2022-10-12 08:47[facility]09-08-2022 NotePROCEDURE: XR ANKLE LT MIN 3 V [...] Electronically authenticated by: WILLIAM GAMING Date: 2022-07-21 11:47[facility]02-17-2022 NotePROCEDURE: XR FOOT RT MIN 3 VIEWS [...] Electronically authenticated by: WILLIAM GAMING Date: 2021-12-30 10:04[facility] note No data available for this section [facility] [place] Evaluation noteNo InformationNort [employer] Other Evaluation noteNo assessment information available [facility] Work Phone: History general Narrative - [...] EYELID 2013 Hospitalization History SEE SURGICAL HX [facility] Other Hospital Discharge instructions No data available for this section [facility] Progress note No data available for this section [facility] Summary Purpose Family History No Family History Records FoundNo Family History Records FoundNo Family History Records Found Advance Directives Advance Directive Response Recorded Date/ Time Advance Directives No July 11:35am Reason for Referral Reason *Waiting for appt [facility] ortho Diagnosis 1 Tear of right biceps muscle, subsequent encounter (S46.211D) Referral Organization [facility] Referring Provider First Name Bernice Referring Provider Last Name Kaylin Referring Provider Specialty [facility] Referred Organization [facility] Referred Provider Rufus Leung Referred Address [address] [place],[address] Referred Provider Specialty Orthopaedic Surgery Referral Priority Routine General Notes Leeanne Crockett 11:22:47 AM >received today, sent P2P Chief Complaint and Reason for Visit Chief Complaint S46.211A s46.211a Additional Source Comments (unrecognized sect ion and content) No Status Records FoundNo Status Records FoundNo Status Records Found INFORMATION SOURCE (unrecogn ized section and content) DATE CREATED AUTHOR 08/12/2022 [facility] DATE CREATED AUTHOR AUTHOR'S ORGANIZ ATION 11/11/2022 [facility] DATE CREATED AUTHOR AUTHOR'S ORGANIZ ATION 08/02/2023 [facility] Care Team (unrecognized sect ion and content) Team Status: Active Member Role Status Dates Jimmy Spears , DO Primary Care Provider Active Team Status: Inactive Member Role Status Dates Jimmy Spears , DO Primary Care Provider Active Rufus Leung , DO Attending Provider Active REASON FOR VISIT (unrecogniz ed section and content) labsFeet BurningmessageArmme ssageMedication, ArmmessagequestionsRight Biceps InjuryMedicationsTBHmessagemessage1 week follow up Goals (unrecognized section and content) Goals may [...] BE BASED ON THE PRIMARY CLINICAL RECORDS. [employer] provides no warranty or guarantee of the accuracy or completeness of information in this document.
--- NOTE | 2024-01-25 08:38 | XR_ITS ---
The [address] [address] Patient Name: REGINALD NIELSON MRN: [id number] date: 1975 Sex: M Assigned Patient Location: RAD Current Patient Location: RAD Accession/Order Number: [id number] Exam Date: 01/25/2024 08:45 Report Date: 01/25/2024 12:15 At the request of: TAY EWING Procedure: XR chest 2V PROCEDURE: XR chest 2V DATE: 01/25/2024 8:45 AM EDT COMPARISONS: None. CLINICAL INDICATION: 48 years Male Closed Fracture Of Sternum S22.20XA FINDINGS: The cardiomediastinal silhouette and pulmonary vasculature are within normal limits. The lungs are clear. There is no evidence of pleural effusion or pneumothorax. CT of the chest from 12/17/2023 shows a minimally displaced mid sternal fracture. This is not well identified on today's plain radiographs. It appears to be subtly visualized on lateral view. XR/XR chest 2V IMPRESSION: Chest radiograph is within normal limits. The patient has a known sternal fracture, not well visualized on these plain radiographs. Electronically authenticated by: RICKIE CURIEL Date: 01/25/2024 12:15
--- NOTE | 2024-01-25 08:38 | XR_ITS ---
The [address] [address] Patient Name: REGINALD NIELSON MRN: [id number] date: 1975 Sex: M Assigned Patient Location: [facility] Current Patient Location: Accession/Order Number: [id number] Exam Date: 01/25/2024 08:45 Report Date: 01/26/2024 07:05 At the request of: TAY EWING Procedure: XR sternum min 2V PROCEDURE: XR sternum min 2V HISTORY: Closed Fracture Of Sternum S22.20XA COMPARISON: XR sternum 12/25/2023, CT chest to 424 FINDINGS: BONES:Stable slight step off/malalignment of the sternum; not appreciably changed compared to prior studies. SOFT TISSUES:No visible soft tissue swelling. EFFUSION:None visible. OTHER: Negative. XR/XR sternum min 2V IMPRESSION: 1. Stable sternal fracture; minimal malalignment with no appreciable change. Electronically authenticated by: WILLIAM GAMING Date: 01/26/2024 07:05
== END 2024-01-25 08:22 | disposition home or self-care (01) ==
LOC: RAD 08:24
PROVIDERS: PCP Family Medicine; Visit Provider Family Medicine
DX: S22.20XD Unspecified fracture of sternum, subsequent encounter for fracture with routine healing (principal)
CPT/HCPCS: 71046; 71120

== ENCOUNTER 2024-09-15 19:25 | Emergency (ER) | payer BC, SELFPAY ==
[2024-09-15] VITALS (8 sets, daily range): BP systolic 160–194; BP diastolic 90–106; PULSE 54–59; TEMP 37.1; O2SAT 98–99; BMI 28.4
--- OUTSIDE RECORDS SUMMARY | 2024-09-15 19:32 | XMS_ITS | CCD ---
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 Name Role Phone Layne Ramírez Attending Unavailable Layne Ramírez Primary Care Physician KAYLIN, DR BERNICE Pride Admitting Unavailable ZIEBMARY, DR WILLIAM Meléndez Consulting Unavailable EWING, DR [...] EWING, DR BERNICE Pride Primary Care Unavailable REINECK, DR EDNA Gordon Consulting Unavailabl e REINECK, DR EDNA Gordon Admitting Unavailabl e ZIEBER, DR WILLIAM Meléndez Consulting Unavailable KATINA CAT Admitting Unavailable EWING, DR BERNICE Pride Primary Care Unavailable TOWANDA, DR EDUARD Norman Consulting Unavailable KATINA CAT Attending Unavailable ARSALAN ROCKWELL Consulting Unavailable EWING, DR BERNICE Pride Primary Care Unavailable DONNY, SARAI Admitting Unavailable DONNY, SARAI Attending Unavailable ZIEBER, DR WILLIAM Meléndez Consulting Unavailable DONNY, SARAI Consulting Unavailable EWING, DR BERNICE Pride Primary Care Unavailable EWING, DR BERNICE Pride Admitting Unavailable EWING, DR BERNICE Pride Attending Unavailable EWING, DR BERNICE Pride Consulting Unavailable Bernice Ewing Unavailable DO Jimmy Spears Primary Care Provider DO Rufus Leung Attending Provider [phone] Rufus Leung Unavailable Jimmy Spears Primary [facility] Unavailable Rufus Leung Admitting Unavailable Rufus Leung Attending Unavailable Jimmy Spears Primary Care Unavailable Rufus Leung Admitting Unavailable Rufus Leung Attending Unavailable Allergies Allergy Classification Reported Allergen(s) Allergy Type Date of Onset Reaction(s) Facility (9 sources) traMADol Drug Allergy Comment:pt states he is not allergic to tramadol [facility] Other Medications Current Medications Medication Drug Class(es) Dates Sig (Normalized) Sig (Original) 200 actuat albuterol 0.09 mg/actuat dry powder inhaler (4 sources) beta2-Adrenergi c Agonist Start: 01-11-2024 Albuterol Sulfate Active 1 INH INHALATION Every 4 hours January 11, 2024 1:00am Albuterol Sulfate 108 (90 Base) MCG/ACT (14 [...] Active cyclobenzaprine hydrochloride 10 mg oral tablet (5 sources) Muscle Relaxant Start: 03-07-2024 take 10 mg by mouth once daily at bedtime Cyclobenzaprine Active 10 MG PO Daily at bedtime March 07, 2024 12:00am take 1 tablet by ashanti th every twenty-four hours Cyclobenzaprine HCl 10 MG 1 tablet at bedtime as needed Orally Once a day Active diazePAM 5 mg oral tablet (20 sources) Benzodiazepine Start: 02-28-2024 End: 06-05-2024 take 5 mg by mouth twice daily Diazepam Active 5 MG PO Twice daily 50 June 05, 2024 9:03am Start: 12-28-2023 End: 02-28-2024 take 10 mg by mouth twice daily Diazepam Discontinued 10 MG PO Twice daily 60 February 28, 2024 9:29pm February 28, 2024 9:32pm Start: 11-27-2023 take 1 tablet by ashanti th every twelve hours as needed diazePAM 10 MG TAKE 1 TABLET BY MOUTH EVERY 12 HOURS NEEDED for 30 15 Jayme, 2024 Active Start: 09-14-2023 take 1 tablet by [...] 1 tablet Orally Once a day Active methylPREDNISolone 4 mg oral tablet (3 sources) Corticosteroid take 1 tablet by mouth every twelve hours Medrol 4 MG 1 tablet with food or milk Orally every 12 hrs Active 24 hr metoprolol succinate 50 mg extended release oral tablet (19 sources) beta-Adrenergic Dominga Start: 024 take 50 mg by mouth once daily Metoprolol Succinate Active 50 MG PO Daily January 11, 2024 1:00am take 1 tablet by mouth once jerri y Metoprolol Succinate ER 50 MG TAKE 1 [...] omeprazole 20 mg delayed release oral capsule (17 sources) Proton Pump Inhibitor Start: take 20 mg by mouth once daily Omeprazole Active 20 MG PO Daily January 11, 2024 1:00am take 1 capsule by mouth once dax ly Omeprazole 20 MG TAKE 1 CAPSULE BY MOUTH EVERY DAY for 90 Active traMADol hydrochloride 50 mg oral tablet (3 sources) Opioid Agonist take 1 tablet by ashanti th every twenty-four hours traMADol HCl 50 MG 1 tablet as needed Orally Once a day Active Completed/Discontinued Medications Medication Drug Class(es) Dates Sig (Normalized) Sig (Original) acetaminophen 325 mg / oxyCODONE hydrochloride 5 mg oral tablet (20 sources) Opioid Agonist Start: 02-07-2024 End: 03-04-2024 take 1 tablet by mouth every eight hours Oxycodone-Acetamino phen (Endocet) 5-325 mg tablet Discontinued 1 TAB PO Every 8 hours 01 06February 07, 2024 March 04, 2024 9:10am Start: 01-05-2024 End: 02-07-2024 take 1 tablet by mouth every six hours Oxycodone-Acetaminophen (Endocet) 5-325 mg tablet Discontinued 1 TAB PO Every 6 hours 09 06January 25, 2024 February 07, 2024 1:19pm Start: 12-25-2023 take 1 tablet by ashanti th every six hours Endocet 5-325 MG 1 tablet as needed Oral ly every 6 hrs for 7 days Dec, Active Start: 12-18-2023 take 1 tablet by ashanti th every six hours Endocet 5-325 MG 1 tablet as needed Oral ly every 6 hrs for 7 days Dec, Active methocarbamol 750 mg oral tablet (8 sources) Muscle Relaxant Start: 01-11-2024 End: 03-07-2024 take 750 mg by mouth every six hours Methocarbamol Discontinued 750 MG PO Every 6 hours January 11, 2024 1:00am March 07, 2024 11:01am Methocarbamol 75 0 MG 1 taablet every 6 hrs prn Active Problems Active Problems Problem Classification Problem Date Documented Date Episodic/Chronic Abdominal pain (18 sources) Unspecified abdominal pain; Translations: [Abdominal pain] Onset: 02-14-2022 Episodic Anxiety disorders (20 sources) Acute stress disorder; Translations: [Acute stress reaction] Chronic Chronic obstructive pulmonary disease and bronchiectasis (14 sources) Bronchitis; Translations: [Bronchitis, not specified as acute or chronic] Episodic Disorders of lipid metabolism (18 sources) Dyslipidemia; Translations: [Hyperlipidemia, unspecified] 01-11-2024 Chronic Esophageal disorders (18 sources) Gastroesophageal reflux disease; Translations: [Gastro-esophageal reflux disease without esophagitis] 01-11-2024 Chronic Essential hypertension (19 sources) Essential hypertension; Translations: [Essential (primary) hypertension] [...] Onset: 12-30-2021 Episodic Other connective tissue disease (18 sources) Peripheral neurogenic pain; Translations: [Neuralgia and neuritis, unspecified] 01-11-2024 Episodic Other connective tissue disease (20 sources) [...] Pain in left foot Episodic Other fractures (4 sources) Unspecified fracture of sternum, initial encounter for closed fracture; Translations: [Closed fracture of sternum] Episodic Other fractures (5 sources) Unspecified fracture of sternum, subsequent encounter for fracture with routine healing; Translations: [Aftercare for healing traumatic fracture of other bone] Episodic Other fractures (4 sources) Closed fracture of sternum; Translations: [Unspecified fracture of sternum, initial encounter for closed fracture] 01-29-2024 Episodic Other fractures (4 sources) Fracture of sternum; Translations: [Unspecified fracture of sternum, subsequent encounter for fracture with routine healing] 01-29-2024 Episodic Other nervous system disorders (14 sources) Mononeuropathy of lower limb; Translations: [Unspecified mononeuropathy of right lower limb] Chronic Other nervous system disorders (1 source) Unspecified mononeuropathy of bilateral lower limbs Chronic Other nervous system disorders (4 sources) Right leg peripheral neuropathy; Translations: [Unspecified mononeuropathy of right lower limb] 01-11-2024 Chronic Other non-traumatic joint disorders (14 sources) Arthralgia of the ankle and/or foot; Translations: [Pain in right ankle and joints of right foot] Episodic Other nutritional; endocrine; and metabolic disorders (18 sources) Obesity; Translations: [Obesity, unspecified] 01-11-2024 Chronic Other nutritional; endocrine; and metabolic disorders [...] 02-16-2022 Episodic Other aftercare (1 source) Other residential (current) drug therapy; Translations: [OTH SHELTER CURRENT DRUG THERAPY] Onset: 07-22-2022 Episodic Other [...] Translations: [Post-COVID syndrome] Unclassified (5 sources) 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); Translations: [Post-COVID syndrome] Results Test Name Value Interpretation Reference Range Facility MR elbow RT wo conon 023 MR elbow RT wo con [facility] [place] [address] MRI Report Signed Patient: Sung Currie MR#: [id number] : 1975 Acct:[id number] Age/Sex: 48 / M ADM Date: 07/24/23 Loc: MR Room: Type: [facility] Attending Dr: Rufus Leung DO Copies [...] Maciel Gonzalez M.D.07/24/2023 4:30 PM Dictation Location: [place] [address] Transcribed By: [facility] 07/24/23 1630 Dictated By: Maciel Gonzalez II, MD 07/24/23 1622 Signed By: 07/24/23 1630 Normal [facility] MR elbow RT wo con [facility] [employer] Other MR elbow RT wo con [facility] [employer] Other MR elbow RT wo con [address] [place] [address] [employer] [place] [address] [facility] Other MR elbow RT wo con MRI Report [facility] Other MR elbow RT wo con Signed [facility] Other MR elbow RT wo con Patient: Sung Currie MR#: [id number] [facility] Other MR elbow RT wo con : 1975 Acct:[id number] [facility] Other MR elbow RT wo con Age/Sex: 48 / M ADM Date: 07/24/23 [facility] Other MR elbow RT wo con Loc: Room: Type: [facility] Other MR elbow RT wo con Attending Dr: Rufus Leung DO [facility] Other MR elbow RT wo con Copies to: Rufus Leung DO [facility] Other MR elbow RT wo con Ordering Provider: Rufus Leung DO [facility] Other MR elbow RT wo con Date of Service: 07/24/23 [facility] Other MR elbow RT wo con MR/MR elbow RT wo con: [id number] [facility] Other MR elbow RT wo con MR elbow RT wo con 07/24/2023 12:34 PM [facility] Other MR elbow RT wo con SIGNS AND SYMPTOMS: Injury to biceps with pain from right elbow into right upper arm [facility] Other MR elbow RT wo con PROTOCOL: Multiplana r multisequence MR images of the right elbow were obtained without IV contrast [facility] Other MR elbow RT wo con COMPARISON: 07/20/2023 [facility] Other MR elbow RT wo con FINDINGS: [facility] Other MR elbow RT wo con Joint fluid: There i s a small joint effusion. [facility] Other MR elbow RT wo con Medial: [facility] Other MR elbow RT wo con Ulnar collateral ligament: Intact. [facility] Other MR elbow RT wo con Common flexor tendon : Intact. [facility] Other MR elbow RT wo con Medial epicondyle: Normal. [facility] Other MR elbow RT wo con Lateral: [facility] Other MR elbow RT wo con Radial collateral ligament: Intact. [facility] Other MR elbow RT wo con Lateral ulnar collateral ligament: Intact. [facility] Other MR elbow RT wo con Common extensor tendon: There is edema at the origin of the common extensor tendon. The tendon is [facility] Other MR elbow RT wo con grossly intact.. [facility] Other MR elbow RT wo con Lateral epicondyle: Normal. [facility] Other MR elbow RT wo con Posterior: [facility] Other MR elbow RT wo con Triceps: Intact. [facility] Other MR elbow RT wo con Olecranon: There is enthesophyte formation similar to that seen on previous radiographs. [facility] Other MR elbow RT wo con Anterior: [facility] Other MR elbow RT wo con Biceps: There is a full-thickness tear of the biceps tendon at the insertion along the radial [facility] Other MR elbow RT wo con tuberosity. The biceps tendon has been retracted by 10.7 cm. [facility] Other MR elbow RT wo con Brachialis: Intact. [facility] Other MR elbow RT wo con Bicipitoradial bursa : Intact. [facility] Other MR elbow RT wo con Articular: [facility] Other MR elbow RT wo con Radio-capitellar joint: Normal. [facility] Other MR elbow RT wo con Ulno-humeral joint: Normal. [facility] Other MR elbow RT wo con Proximal radio-ulnar joint: Normal. [facility] Other MR elbow RT wo con Bones (other than subarticular marrow): Normal. [facility] Other MR elbow RT wo con Muscles: Normal. [facility] Other MR elbow RT wo con Vessels: Normal. [facility] Other MR elbow RT wo con Nerves: Cubital tunnel normal, retinaculum intact. Anconeus epitrochlearis muscle present. [facility] Other MR elbow RT wo con Intra-articular bodies: None. [facility] Other MR elbow RT wo con MR/MR elbow RT wo con [facility] Other MR elbow RT wo con IMPRESSION: [facility] Other MR elbow RT wo con There is a full-thickness tear of the biceps tendon at the insertion along the radial tuberosity. [facility] Other MR elbow RT wo con The biceps tendon sahni s been retracted by 10.7 cm. [facility] Other MR elbow RT wo con Tendinopathy is note d at the origin of the common extensor tendon. [facility] Other MR elbow RT wo con There is enthesophyt e formation along the olecranon similar to the prior radiographs. [facility] Other MR elbow RT wo con Impression dictated by: Maciel Gonzalez M.D.07/24/2023 4:30 PM [facility] Other MR elbow RT wo con Dictation Location: [facility]IO-PC-13 [facility] [employer] Other MR elbow RT wo con Transcribed By: PWS 07/24/23 1631 [facility] [employer] Other MR elbow RT wo con Dictated By: Maciel Gonzalez II, MD 07/24/23 1621 [facility] [employer] Other MR elbow RT wo con Signed By: [facility] [employer] Other MR elbow RT wo con 07/24/23 1635 [facility] [employer] Other XR elbow RT 2Von 07-20-2023 XR elbow RT 2V [facility] [place] [address] [place] [address] XRay Report Signed Patient: Sung Currie MR#: [id number] : 1975 Acct:[id number] Age/Sex: 48 / M ADM Date: 07/20/23 Loc: [facility] Room: Type: [facility] Attending Dr: Rufus Leung DO Copies [...] Nuzhat Gutierrez M.D.07/20/2023 3:40 PM Dictation Location: RADIO--02 Transcribed By: [facility] 07/20/23 154 Dictated By: Nuzhat Gutierrez MD 07/20/23 1539 Signed By: 07/20/23 1540 Normal [facility] XR elbow RT 2V [facility] [employer] Other XR elbow RT 2V [facility] [employer] Other XR elbow RT 2V [address] [facility] [employer] Other [place]R elbow [place] 2[place] [address] No rt [employer] Other XR elbow RT 2V XRay Report [employer] Other XR elbow RT 2V Signed [employer] Other XR elbow RT 2V Patient: Sung Currie MR#: [id number] [facility] [employer] Other XR elbow RT 2V : 1975 Acct:[id number] [employer] Other XR elbow RT 2V Age/Sex: 48 / M ADM Date: 07/20/23 [facility] Other XR elbow RT 2V Loc: [facility] Room: Type : [facility] [employer] Other XR elbow RT 2V Attending Dr: Rufus Leung DO [facility] Other XR elbow RT 2V Copies to: Rufus Leung DO [facility] Other XR elbow RT 2V Ordering Provider: Rufus Leung DO [facility] Other XR elbow RT 2V Date of Service: 07/20/23 [facility] Other XR elbow RT 2V XR/XR elbow RT 2V: Rupture of right distal biceps tendon, initial [facility] Other XR elbow RT 2V encounter [employer] Other XR elbow RT 2V RIGHT ELBOW - 4 VIEWS [facility] Other XR elbow RT 2V CLINICAL HISTORY: History of right biceps injury 4-5 months ago with pain radiating from the elbow [facility] Other XR elbow RT 2V upward. [employer] Other XR elbow RT 2V COMPARISON: None [facility] [employer] Other XR elbow RT 2V AP and lateral views were obtained. No acute fracture or dislocation is noted. There is an [facility] Other XR elbow RT 2V enthesophyte at the olecranon at the insertion of triceps tendon with small adjacent corticated bony [facility] Other XR elbow RT 2V ossicles. There is minimal enthesophyte formation at the humeral condyles. A small amount of joint [facility] Other XR elbow RT 2V fluid is possible. N o focal soft tissue swelling is seen. [facility] Other XR elbow RT 2V XR/XR elbow RT 2V [facility] Other XR elbow RT 2V IMPRESSION: [employer] Other XR elbow RT 2V DEGENERATIVE CHANGES. [facility] Other XR elbow RT 2V NO DEFINITE ACUTE BONY FINDINGS. [facility] Other XR elbow RT 2V Impression dictated by: Nuzhat Gutierrez M.D.07/20/2023 3:40 PM [employer] Other XR elbow RT 2V Dictation Location: [place] [address] [employer] Other XR elbow RT 2V Transcribed By: ARLEEN 07/20/23 1679 [employer] Other XR elbow RT 2V Dictated By: Nuzhat Gutierrez MD 07/20/23 1532 [employer] Other XR elbow RT 2V Signed By: [employer] Other XR elbow RT 2V 07/20/23 7550 [employer] Other Ambulatory Visit Summaryon 0 08-03-2022 Ambulatory Visit Summary SUNG CURRIE :1975 Visit Date:08/03/2022 Ambulatory Visit Instructions Your Care Team Attending Physician - Desiree HENSLEY, Layne Primary Care Physician - Desiree HENSLEY, Layne Allergies No active allergies Normal [facility] CBC AUTO DIFFon 07-25-2022 BASO # 0.0 103/ul Normal 0.0-0.1 [facility] Comment on above: Performed By: #### C BC #### [facility] [address] [place] [address] Dr. Nini Jordan Basophils/100 WBC (Bld) 0.2 % Normal 0.2-2.0 [facility] Comment on above: Performed By: #### C BC #### [facility] [address] [place] [address] Dr. Nini Jordan EO # 0.0 103/ul Normal 0.0-0.7 [facility] Comment on above: Performed By: #### C BC #### [facility] [address] [place] [address] Dr. Nini Jordan Eosinophils/100 WBC (Bld) 0.2 % Critically low 0.9-7.0 [facility] Comment on above: Performed By: #### C BC #### [facility] [address] [place] [address] Dr. Nini Jordan Erythrocyte distribution width (RBC) [Ratio] 12.6 % Normal 11.0-15.0 [facility] Comment on above: Performed By: #### C BC #### [facility] [address] [place] [address] Dr. Nini Jordan Hematocrit (Bld) [Volume fraction] 42.5 % Normal 42.0-54.0 [facility] Comment on above: Performed By: #### C BC #### [facility] [address] [place] [address] Dr. Nini Jordan Hemoglobin (Bld) [Mass/Vol] 14.0 g/dL Normal 14.0-18.0 [facility] Comment on above: Performed By: #### C BC #### [facility] [address] [place] [address] Dr. Nini Jordan IG # 0.06 10e3/ul Critically high 0.00-0.03 [facility] Comment on above: Performed By: #### C BC #### [facility] [address] [place] [address] Dr. Nini Jordan IG % 0.6 % Critically high 0.0-0.5 [facility] Comment on above: Performed By: #### C BC #### [facility] [address] [place] [address] Dr. Nini Jordan LYMPH # 1.6 103/ul Normal 1.2-3.8 [facility] Comment on above: Performed By: #### C BC #### [facility] [address] [place] [address] Dr. Nini Jordan Lymphocytes/100 WBC (Bld) 16.5 % Critically low 20.5-60.0 [facility] Comment on above: Performed By: #### C BC #### [facility] [address] [place] [address] Dr. Nini Jordan MANUAL DIFF REQ NO Normal [facility] Comment on above: Performed By: #### C BC #### [facility] [address] [place] [address] Dr. Nini Jordan MCH (RBC) [Entitic mass] 32.6 pg Normal 25.9-34.0 [facility] Comment on above: Performed By: #### C BC #### [facility] [address] [place] [address] Dr. Nini Jordan MCHC (RBC) [Mass/Vol] 32.9 g/dL Normal 29.9-35.2 [facility] Comment on above: Performed By: #### C BC #### [facility] [address] [place] [address] Dr. Nini Jordan MCV (RBC) [Entitic vol] 98.8 fL Critically high 80.0-94.0 [facility] Comment on above: Performed By: #### C BC #### [facility] [address] [place] [address] Dr. Nini Jordan MONO # 0.7 103/ul Normal 0.3-0.8 [facility] Comment on above: Performed By: #### C BC #### [facility] [address] [place] [address] Dr. Nini Jordan Monocytes/100 WBC (Bld) 6.8 % Normal 1.7-12.0 [facility] Comment on above: Performed By: #### C BC #### [facility] [address] [place] [address] Dr. Nini Jordan NEUT # 7.4 103/ul Critically high 1.4-6.5 [facility] Comment on above: Performed By: #### C BC #### [facility] [address] [place] [address] Dr. Nini Jordan Neutrophils/100 WBC (Bld) 75.7 % Critically high 43.0-75.0 [facility] Comment on above: Performed By: #### C BC #### [facility] [address] [place] [address] Dr. Nini Jordan Platelet mean volume (Bld) [Entitic vol] 9.4 fL Critically low 9.5-13.5 [facility] Comment on above: Performed By: #### C BC #### [facility] [address] [place] [address] Dr. Nini Jordan PLT 213 103/ul Normal 150-450 [facility] Comment on above: Performed By: #### C BC #### [facility] [address] [place], [place] [id number] Dr. Nini Jordan RBC 4.30 106/ul Critically low 4.70-6.10 [facility] Comment on above: Performed By: #### C BC #### [facility] [address] [place] [address] Dr. Nini Jordan WBC 9.8 103/ul Normal 4.0-11.0 [facility] Comment on above: Performed By: #### C BC #### [facility] [address] [place], [place] [address] Dr. Nini Jordan LIPID PROFILEon 07-25-2022 CHOL-HDL RATIO NORM SEE BELOW Normal [facility] Comment on above: Result Comment: 3.3 - 4.4 LOW RISK 4.4 - 7.1 AVERAGE RISK 7.1 - 11.0 MODERATE RISK >11.0 HIGH RISK Performed By: #### C BC #### [facility] [address] [place] [id number] [address] Nini Jordan Cholesterol [Mass/Vol] 243 mg/dL Critically high <=200 [facility] Comment on above: Performed By: #### C BC #### [facility] [address] [place] [address] [address] Nini Jordan Cholesterol in HDL [Mass/Vol] 60 mg/dL Normal 40-60 [facility] Comment on above: Performed By: #### C BC #### [facility] [address] [place] [address] [address] Nini Jordan Cholesterol in LDL [Mass/Vol] 162.6 mg/dL Normal [facility] Comment on above: Performed By: #### C BC #### [facility] [address] [place] [id number] Nini Jordan Cholesterol.total/C holesterol in HDL [Mass ratio] 4.1 {ratio} Normal [facility] Comment on above: Performed By: #### C BC #### [facility] [address] [place] [address] [address] Nini Jordan HDL NORMAL > or = 60 mg/dl - LO W CARDIOVASCULAR RISK <40 mg/dl - HIGH CARDIOVASCULAR RISK Normal [facility] Comment on above: Performed By: #### C BC #### [facility] [address] [place] [id number] [address] Nini Jordan LDL CALC NORMAL SEE BELOW Normal [facility] Comment on above: Result Comment: <100 mg/dl OPTIMAL 100 - 129 mg/dl NEAR OR ABOVE OPTIMAL 130 - 159 mg/dl BORDERLINE HIGH 160 - 189 mg/dl HIGH >190 mg/dl VERY HIGH Performed By: #### C BC #### [facility] [address] [address] [address] Nini Jordan Triglyceride [Mass/Vol] 102 mg/dL Normal <=150 [facility] Comment on above: Performed By: #### C BC #### [facility] [address] [place] [address] Dr. Nini Jordan VLDL CALC 20.4 mg/dL Normal [facility] Comment on above: Performed By: #### C BC #### [facility] [address] [place] [address] Dr. Nini Jordan PROF 14(COMP METB)on 022 Albumin [Mass/Vol] 3.3 g/dL Critically low 3.4-5.0 Th e [facility] Comment on above: Performed By: #### C BC #### [facility] [address] [place] [address] Dr. Nini Jordan Albumin/Globulin [Mass ratio] 0.9 {ratio} Normal [facility] Comment on above: Performed By: #### C BC #### [facility] [address] [place] [address] Dr. Nini Jordan ALP [Catalytic activity/Vol] 72 U/L Normal 46-116 [facility] Comment on above: Performed By: #### C BC #### [facility] [address] [place] [address] Dr. Nini Jordan ALT [Catalytic activity/Vol] 46 U/L Normal 16-63 [facility] Comment on above: Performed By: #### C BC #### [facility] [address] [place] [address] Dr. Nini Jordan Anion gap [Moles/Vol] 11.0 mmol/L Normal [facility] Comment on above: Performed By: #### C BC #### [facility] [address] [place] [address] Dr. Nini Jordan AST [Catalytic activity/Vol] 25 U/L Normal 15-37 [facility] Comment on above: Performed By: #### C BC #### [facility] [address] [address] [address] Nini Jordan Bilirubin [Mass/Vol] 0.3 mg/dL Normal 0.2-1.0 [facility] Comment on above: Performed By: #### C BC #### [facility] [address] [address] [address] Nini Jordan Calcium [Mass/Vol] 8.7 mg/dL Normal 8.5-10.1 [facility] Comment on above: Performed By: #### C BC #### [facility] [address] [address] [address] Nini Jordan Chloride [Moles/Vol] 99 mmol/L Normal 98-107 [facility] Comment on above: Performed By: #### C BC #### [facility] [address] [place] [address] Dr. Nini Jordan CO2 [Moles/Vol] 27.3 mmol/L Normal 21.0-32.0 [facility] Comment on above: Performed By: #### C BC #### [facility] [address] [place] [address] Dr. Nini Jordan Creatinine [Mass/Vol] 0.87 mg/dL Normal 0.70-1.30 [facility] Comment on above: Performed By: #### C BC #### [facility] [address] [place] [address] Dr. Nini Jordan EGFR-AF BAHAMIAN >60 Normal >=60 [facility] Comment on above: Performed By: #### C BC #### [facility] [address] [place] [address] Dr. Nini Jordan EGFR-NON AF BAHAMIAN >60 Normal >=60 [facility] Comment on above: Performed By: #### C BC #### [facility] [address] [place] [address] Dr. Nini Jordan Globulin (S) [Mass/Vol] 3.7 g/dL Normal [facility] Comment on above: Performed By: #### C BC #### [facility] [address] [place] [address] Dr. Nini Jordan Glucose [Mass/Vol] 109 mg/dL Critically high 74-[address] [facility] Comment on above: Performed By: #### C BC #### [facility] [address] [place] [address] Dr. Nini Jordan Potassium [Moles/Vol] 3.3 mmol/L Critically low 3.5-5.1 [facility] Comment on above: Performed By: #### C BC #### [facility] [address] [place] [address] Dr. Nini Jordan Protein [Mass/Vol] 7.0 g/dL Normal 6.4-8.2 [facility] Comment on above: Performed By: #### C BC #### [facility] [address] [place] [address] Dr. Nini Jordan Sodium [Moles/Vol] 134 mmol/L Critically low 136-145 Th [facility] Comment on above: Performed By: #### C BC #### [facility] [address] [place] [address] Dr. Nini Jordan Urea nitrogen [Mass/Vol] 20.0 mg/dL Critically high 7.0-18.0 [facility] Comment on above: Performed By: #### C BC #### [facility] [address] [place] [address] Dr. Nini Jordan Urea nitrogen/Creatinine [Mass ratio] 23.0 mg/mg Normal [facility] Comment on above: Performed By: #### C BC #### [facility] [address] [place] [address] Dr. Nini Jordan AMYLASEon 02-14-2022 AMYL <30 Normal 25-115 [facility] Comment on above: Performed By: #### C BC #### [facility] [address] [place] [address] Dr. Nini Jordan CBC AUTO DIFFon 02-14-2022 BASO # 0.0 103/ul Normal 0.0-0.1 [facility] Comment on above: Performed By: #### C BC #### [facility] [address] [place] [address] Dr. Nini Jordan Basophils/100 WBC (Bld) 0.3 % Normal 0.2-2.0 [facility] Comment on above: Performed By: #### C BC #### [facility] [address] [place] [address] Dr. Nini Jordan EO # 0.0 103/ul Normal 0.0-0.7 [facility] Comment on above: Performed By: #### C BC #### [facility] [address] [place] [address] Dr. Nini Jordan Eosinophils/100 WBC (Bld) 0.1 % Critically low 0.9-7.0 [facility] Comment on above: Performed By: #### C BC #### [facility] [address] [place] [address] Dr. Nini Jordan Erythrocyte distribution width (RBC) [Ratio] 13.4 % Normal 11.0-15.0 [facility] Comment on above: Performed By: #### C BC #### [facility] [address] [place] [address] Dr. Nini Jordan Hematocrit (Bld) [Volume fraction] 44.2 % Normal 42.0-54.0 [facility] Comment on above: Performed By: #### C BC #### [facility] [address] [place] [address] Dr. Nini Jordan Hemoglobin (Bld) [Mass/Vol] 14.8 g/dL Normal 14.0-18.0 [facility] Comment on above: Performed By: #### C BC #### [facility] [address] [place] [address] Dr. Nini Jordan IG # 0.11 10e3/ul Critically high 0.00-0.03 [facility] Comment on above: Performed By: #### C BC #### [facility] [address] [place] [address] Dr. Nini Jordan IG % 0.7 % Critically high 0.0-0.5 [facility] Comment on above: Performed By: #### C BC #### [facility] [address] [place] [address] Dr. Nini Jordan LYMPH # 1.6 103/ul Normal 1.2-3.8 [facility] Comment on above: Performed By: #### C BC #### [facility] [address] [place] [address] Dr. Nini Jordan Lymphocytes/100 WBC (Bld) 10.3 % Critically low 20.5-60.0 [facility] Comment on above: Performed By: #### C BC #### [facility] [address] [place] [address] Dr. Nini Jordan MANUAL DIFF REQ NO Normal [facility] Comment on above: Performed By: #### C BC #### [facility] [address] [place] [address] Dr. Nini Jordan MCH (RBC) [Entitic mass] 31.6 pg Normal 25.9-34.0 [facility] Comment on above: Performed By: #### C BC #### [facility] [address] [place] [address] Dr. Nini Jordan MCHC (RBC) [Mass/Vol] 33.5 g/dL Normal 29.9-35.2 [facility] Comment on above: Performed By: #### C BC #### [facility] [address] [place] [address] Dr. Nini Jordan MCV (RBC) [Entitic vol] 94.2 fL Critically high 80.0-94.0 [facility] Comment on above: Performed By: #### C BC #### [facility] [address] [place] [address] Dr. Nini Jordan MONO # 1.0 103/ul Critically high 0.3-0.8 [facility] Comment on above: Performed By: #### C BC #### [facility] [address] [place] [address] Dr. Nini Jordan Monocytes/100 WBC (Bld) 6.4 % Normal 1.7-12.0 [facility] Comment on above: Performed By: #### C BC #### [facility] [address] [place] [address] Dr. Nini Jordan NEUT # 12.5 103/ul Critically high 1.4-6.5 [facility] Comment on above: Performed By: #### C BC #### [facility] [address] [address] [address] Nini Jordan Neutrophils/100 WBC (Bld) 82.2 % Critically high 43.0-75.0 [facility] Comment on above: Performed By: #### C BC #### [facility] [id number] Nini Jordan Platelet mean volume (Bld) [Entitic vol] 9.4 fL Critically low 9.5-13.5 [facility] Comment on above: Performed By: #### C BC #### [facility] [address] [address] [address] Nini Jordan PLT 327 103/ul Normal 150-450 [facility] Comment on above: Performed By: #### C BC #### [facility] [address] [address] [address] Nini Jordan RBC 4.69 106/ul Critically low 4.70-6.10 [facility] Comment on above: Performed By: #### C BC #### [facility] [id number] Nini Jordan WBC 15.2 103/ul Critically high 4.0-11.0 [facility] Comment on above: Performed By: #### C BC #### [facility] [id number] Nini Jordan CT ABD/PELV W CONon [...] EDUARD QUIROS Date: 2022-02-14 15:30 Normal The [facility] ETHANOL (BLD ALC)on 02-15-20 22 ALC NOTE NOTE: 80 mg/dl is [facility] legal limit for a blood alcohol level Normal [facility] Comment on above: Performed By: #### C BC #### [facility] [address] [place] [address] Dr. Nini Jordan Ethanol [Mass/Vol] mg/dL Normal [facility] Comment on above: Performed By: #### C BC #### [facility] [address] [place] [address] Dr. Nini Jordan GI PANEL (PCR)on 02-14-2022 Adenovirus F 40/41 Not detected Normal NOT DETECTED [facility] Comment on above: Performed By: #### C BC #### [facility] [address] [place] [address] Dr. Nini Jordan Astrovirus Not detected Normal NOT DETECTED [facility] Comment on above: Performed By: #### C BC #### [facility] [address] [place] [address] Dr. Nini Menchaca. Diff toxin A/B Not detected Normal NOT DETECTED The [facility] Comment on above: Performed By: #### C BC #### [facility] [address] [place] [address] Dr. Nini Jordan Campylobacter Not detected Normal NOT DETECTED [facility] Comment on above: Performed By: #### C BC #### [facility] [address] [place] [address] Dr. Nini Jordan Cryptosporidium Not detected Normal NOT DETECTED [facility] Comment on above: Performed By: #### C BC #### [facility] [address] [address] [address] Nini Jordan Cyclos. Cayetanensis Not detected Normal NOT DETECTED The [facility] Comment on above: Performed By: #### C BC #### [facility] [address] [place] [address] Dr. Nini Jordan E. Coli O157 Not Applicable Normal Not Applicable [facility] Comment on above: Performed By: #### C BC #### [facility] [address] [place] [address] Dr. Nini Jordan E. histolytica Not detected Normal NOT DETECTED [facility] Comment on above: Performed By: #### C BC #### [facility] [address] [place] [address] Dr. Nini Jordan EAEC Not detected Normal NOT DETECTED [facility] Comment on above: Performed By: #### C BC #### [facility] [address] [place] [address] Dr. Nini Jordan EIEC Not detected Normal NOT DETECTED [facility] Comment on above: Performed By: #### C BC #### [facility] [address] [place] [address] Dr. Nini Jordan EPEC Not detected Normal NOT DETECTED [facility] Comment on above: Performed By: #### C BC #### [facility] [address] [place] [address] Dr. Nini Jordan ETEC Not detected Normal NOT DETECTED [facility] Comment on above: Performed By: #### C BC #### [facility] [address] [place] [address] Dr. Nini Jordan G. Lamblia Not detected Normal NOT DETECTED [facility] Comment on above: Performed By: #### C BC #### [facility] [address] [place] [address] Dr. Nini Jordan GIPANEL CONTROLS PASSED Normal [facility] Comment on above: Performed By: #### C BC #### [facility] [address] [address] [address] Nini PETERSEN RENNY HEADER GI PANEL BACTERIA Normal T [facility] Comment on above: Performed By: #### C BC #### [facility] [address] [address] [address] Nini GOSS ECOLI GI PANEL DIARRHEAGENIC E.COLI / SHIGELLA Normal [facility] Comment on above: Performed By: #### C BC #### [facility] [address] [address] [address] Nini GOSS INFO SEE BELOW Normal [facility] Comment on above: Result Comment: EAEC - Enteroaggregative E. Coli EPEC- Enteropathogenic E. Coli ETEC- Enterotoxigenic E. Coli lt/st STEC- Shigella-like toxin-producing E. Coli stx1/stx2 EIEC- Shigella/Enteroinvasive E. Coli Performed By: #### C BC #### [facility] [address] [place] [address] Dr. Nini GOSS PARASITES GI PANEL PARASITES Normal [facility] Comment on above: Performed By: #### C BC #### [facility] [address] [place] [address] Dr. Nini GOSS VIRUS GI PANEL VIRUSES Normal [facility] Comment on above: Performed By: #### C BC #### [facility] [address] [place] [address] Dr. Nini Jordan Norovirus GI/GII Not detected Normal NOT DETECTED The [facility] Comment on above: Performed By: #### C BC #### [facility] [address] [address] [address] Nini Jordan P. Shigelloides Not detected Normal NOT DETECTED [facility] Comment on above: Performed By: #### C BC #### [facility] [address] [address] [address] Nini Jordan Rotavirus A Not detected Normal NOT DETECTED [facility] Comment on above: Performed By: #### C BC #### [facility] [address] [place] [address] Dr. Nini Jordan Salmonella Not detected Normal NOT DETECTED [facility] Comment on above: Performed By: #### C BC #### [facility] [address] [place] [address] Dr. Nini Jordan Sapovirus Not detected Normal NOT DETECTED [facility] Comment on above: Performed By: #### C BC #### [facility] [address] [place] [address] Dr. Nini Jordan STEC Not detected Normal NOT DETECTED [facility] Comment on above: Performed By: #### C BC #### [facility] [address] [place] [address] Dr. Nini Jordan Vibrio Not detected Normal NOT DETECTED [facility] Comment on above: Performed By: #### C BC #### [facility] [address] [place] [address] Dr. Nini Jordan Vibrio Cholera Not detected Normal NOT DETECTED [facility] Comment on above: Performed By: #### C BC #### [facility] [address] [place] [address] Dr. Nini Jordan Y. Enterocolitica Not detected Normal NOT DETECTED [facility] Comment on above: Performed By: #### C BC #### [facility] [address] [place] [address] Dr. Nini Jordan LACTATE/LACTIC ACIDon 2021 Lactate [Moles/Vol] 1.2 mmol/L Normal 0.7-2.0 [facility] Comment on above: Performed By: #### L ACT #### [facility] [address] [place] [address] Dr. Nini Jordan LIPASEon 02-14-2022 Lipase [Catalytic activity/Vol] 88.0 U/L Normal 23.0-300.0 [facility] Comment on above: Performed By: #### C BC #### [facility] [address] [place] [address] Dr. Nini Jordan PROF 14(COMP METB)on 022 Albumin [Mass/Vol] 3.8 g/dL Normal 3.4-5.0 [facility] Comment on above: Performed By: #### C BC #### [facility] [address] [place] [address] Dr. Nini Jordan Albumin/Globulin [Mass ratio] 0.9 {ratio} Normal [facility] Comment on above: Performed By: #### C BC #### [facility] [address] [place] [address] Dr. Nini Jordan ALP [Catalytic activity/Vol] 106 U/L Normal 46-116 [facility] Comment on above: Performed By: #### C BC #### [facility] [address] [place] [address] Dr. Nini Jordan ALT [Catalytic activity/Vol] 52 U/L Normal 16-63 [facility] Comment on above: Performed By: #### C BC #### [facility] [address] [place] [address] Dr. Nini Jordan Anion gap [Moles/Vol] 14.6 mmol/L Normal [facility] Comment on above: Performed By: #### C BC #### [facility] [address] [place] [address] Dr. Nini Jordan AST [Catalytic activity/Vol] 28 U/L Normal 15-37 [facility] Comment on above: Performed By: #### C BC #### [facility] [address] [place] [address] Dr. Nini Jordan Bilirubin [Mass/Vol] 0.5 mg/dL Normal 0.2-1.3 [facility] Comment on above: Performed By: #### C BC #### [facility] [address] [place] [address] Dr. Nini Jordan Calcium [Mass/Vol] 9.1 mg/dL Normal 8.5-10.[address] [facility] Comment on above: Performed By: #### C BC #### [facility] [address] [place] [address] Dr. Nini Jordan Chloride [Moles/Vol] 100 mmol/L Normal 98-107 [facility] Comment on above: Performed By: #### C BC #### [facility] [address] [address] [address] Nini Jordan CO2 [Moles/Vol] 24.9 mmol/L Normal 22.0-30.0 [facility] Comment on above: Performed By: #### C BC #### [facility] [address] [address] [address] Nini Jordan Creatinine [Mass/Vol] 1.02 mg/dL Normal 0.66-1.25 [facility] Comment on above: Performed By: #### C BC #### [facility] [address] [address] [address] Nini Jordan EGFR-AF BAHAMIAN >60 Normal >=60 [facility] Comment on above: Performed By: #### C BC #### [facility] [address] [place] [address] Dr. Nini Jordan EGFR-NON AF BAHAMIAN >60 Normal >=60 [facility] Comment on above: Performed By: #### C BC #### [facility] [address] [place] [address] Dr. Nini Jordan Globulin (S) [Mass/Vol] 4.1 g/dL Normal [facility] [facility] Comment on above: Performed By: #### C BC #### [facility] [address] [place] [address] Dr. Nini Jordan Glucose [Mass/Vol] 135 mg/dL Critically high 74-[address] [facility] Comment on above: Performed By: #### C BC #### [facility] [address] [address] [address] Nini Jordan Potassium [Moles/Vol] 3.5 mmol/L Normal 3.4-5.0 [facility] Comment on above: Performed By: #### C BC #### [facility] [address] [place] [address] Dr. Nini Jordan Protein [Mass/Vol] 7.9 g/dL Normal 6.1-8.2 [facility] Comment on above: Performed By: #### C BC #### [facility] [address] [place] [address] Dr. Nini Jordan Sodium [Moles/Vol] 136 mmol/L Critically low 137-145 Th e [facility] Comment on above: Performed By: #### C BC #### [facility] [address] [place] [address] Dr. Nini Jordan Urea nitrogen [Mass/Vol] 17.0 mg/dL Normal 7.0-18.0 [facility] Comment on above: Performed By: #### C BC #### [facility] [address] [place] [address] Dr. Nini Jordan Urea nitrogen/Creatinine [Mass ratio] 16.7 mg/mg Normal [facility] Comment on above: Performed By: #### C BC #### [facility] [address] [place] [address] Dr. Nini Jordan PROTIMEon 02-14-2022 INR Coag (PPP) [Relative time] 0.93 {INR} Normal [facility] Comment on above: Performed By: #### P TT, PT #### [facility] [address] [place] [address] Dr. Nini Jordan INR GUIDELINES SEE BELOW Normal [facility] Comment on above: Result Comment: YURIY RED INR: 2.0 - 3.0 CONDITIONS NOT LISTED BELOW 2.5 - 3.5 FOR PROSTHETIC HEART VALVE REPLACEMENT 2.5 - 3.5 RECURRENT THROMBOSIS Performed By: #### P TT, PT #### [facility] [address] [place] [address] Dr. Nini Jordan PT Coag (PPP) [Time] 10.1 s Normal 9.0-11.6 [facility] Comment on above: Performed By: #### P TT, PT #### [facility] [address] [place] [address] Dr. Nini Jordan PTTon 02-14-2022 aPTT Coag (Bld) [Time] 24.8 s Normal 22.3-36.2 [facility] Comment on above: Performed By: #### P TT, PT #### [facility] [address] [place] [address] Dr. Nini Jordan Vital Signs Date Time Vital Sign Value Performing Clinician Facility 07-17-2024 11:20-0400 Body height 172.72 cm [facility] 07-17-2024 11:20-0400 Body mass index (BMI) [Ratio] 32.2 kg/m2 [facility] 07-17-2024 11:20-0400 Body weight 96.16 kg [facility] 07-17-2024 11:20-0400 Diastolic blood pressure 117 mm[Hg] [facility] 07-17-2024 11:20-0400 Heart rate 76 /min [facility] 07-17-2024 11:20-0400 Systolic blood pressure 158 mm[Hg] [facility] 03-07-2024 10:49-0400 Body height 172.72 cm [facility] 03-07-2024 10:49-0400 Body mass index (BMI) [Ratio] 34.9 kg/m2 [facility] 03-07-2024 10:49-0400 Body weight 104.32 kg [facility] 03-07-2024 10:49-0400 Diastolic blood pressure 87 mm[Hg] [facility] 03-07-2024 10:49-0400 Heart rate 84 /min [facility] 03-07-2024 10:49-0400 Systolic blood pressure 131 mm[Hg] [facility] 02-16-2024 11:53-0400 Body height 172.72 cm [facility] 02-16-2024 11:53-0400 Body mass index (BMI) [Ratio] 35.4 kg/m2 [facility] 02-16-2024 11:53-0400 Body weight 105.74 kg [facility] 02-16-2024 11:53-0400 Diastolic blood pressure 85 mm[Hg] [facility] 02-16-2024 11:53-0400 Heart rate 69 /min [facility] 02-16-2024 11:53-0400 Systolic blood pressure 121 mm[Hg] [facility] 01-29-2024 15:19-0400 Body height 172.72 cm [facility] 01-29-2024 15:19-0400 Body mass index (BMI) [Ratio] 35.2 kg/m2 [facility] 01-29-2024 15:19-0400 Body weight 105.23 kg [facility] 01-29-2024 15:19-0400 Diastolic blood pressure 75 mm[Hg] [facility] 01-29-2024 15:19-0400 Heart rate 76 /min [facility] 01-29-2024 15:19-0400 Systolic blood pressure 115 mm[Hg] [facility] 01-12-2024 11:22-0500 Body height 172.72 cm [facility] 01-12-2024 11:22-0500 Body mass index (BMI) [Ratio] 34.3 kg/m2 [facility] 01-12-2024 11:22-0500 Body weight 102.51 kg [facility] 01-12-2024 11:22-0500 Diastolic blood pressure 82 mm[Hg] [facility] 01-12-2024 11:22-0500 Heart rate 77 /min [facility] 01-12-2024 11:22-0500 Systolic blood pressure 130 mm[Hg] [facility] 12-25-2023 11:00-0500 Body height 172.72 cm Bernice Ewing Other [employer] [facility] [employer] Other 12-25-2023 11:00-0500 Body mass index (BMI) [Ratio] 34.15 kg/m2 Bernice Ewing Other [facility] Other 12-25-2023 11:00-0500 Body weight 101.88 kg Bernice Ewing Other [facility] Other 12-25-2023 11:00-0500 Diastolic blood pressure 88 mm[Hg] Bernice Ewing Other [facility] Other 12-25-2023 11:00-0500 Systolic blood pressure 147 mm[Hg] Bernice Ewing Other [facility] Other 12-18-2023 14:00-0500 Body height 172.72 cm Bernice Ewing Other [employer] Other 12-18-2023 14:00-0500 Body mass index (BMI) [Ratio] 34.06 kg/m2 Bernice Ewing Other [employer] Other 12-18-2023 14:00-0500 Body weight 101.61 kg Bernice Ewing Other [facility] Other 12-18-2023 14:00-0500 Diastolic blood pressure 96 mm[Hg] Bernice Ewing Other [facility] Other 12-18-2023 14:00-0500 Systolic blood pressure 152 mm[Hg] Bernice Ewing Other [facility] Other 09-14-2023 11:00-0400 Body height 172.72 cm Bernice Ewing Other [employer] Other 09-14-2023 11:00-0400 Body mass index (BMI) [Ratio] 34.57 kg/m2 Bernice Ewing Other [employer] Other 09-14-2023 11:00-0400 Body weight 103.15 kg Bernice Ewing Other [facility] Other 09-14-2023 11:00-0400 Diastolic blood pressure 82 mm[Hg] Bernice Ewing Other [facility] Other 09-14-2023 11:00-0400 Systolic blood pressure 121 mm[Hg] Bernice Ewing Other [facility] Other 07-20-2023 13:30-0400 Body height 172.72 cm Rufus Leung Other [employer] Other 07-20-2023 13:30-0400 Body mass index (BMI) [Ratio] 33.45 kg/m2 Rufus Mullinsley Other [employer] Other 07-20-2023 13:30-0400 Body weight 99.79 kg Rufus Mullinsley Other [facility] Other 07-10-2023 10:15-0400 Body height 172.72 cm Bernice Ewing Other [employer] Other 07-10-2023 10:15-0400 Body mass index (BMI) [Ratio] 33.3 kg/m2 Bernice Ewing Other [facility] Other 07-10-2023 10:15-0400 Body weight 99.34 kg Bernice Ewing Other [employer] Other 07-10-2023 10:15-0400 Diastolic blood pressure 95 mm[Hg] Bernice Ewing Other [employer] Other 07-10-2023 10:15-0400 Systolic blood pressure 147 mm[Hg] Bernice Ewing Other [facility] Other 03-14-2023 16:15-0400 Body height 172.72 cm Bernice Ewing Other [facility] Other 03-14-2023 16:15-0400 Body mass index (BMI) [Ratio] 34.82 kg/m2 Bernice Ewing Other [facility] Other 03-14-2023 16:15-0400 Body weight 103.87 kg Bernice Ewing Other [facility] Other 03-14-2023 16:15-0400 Diastolic blood pressure 74 mm[Hg] Bernice Ewing Other [employer] Other 03-14-2023 16:15-0400 SaO2% (BldA) [Mass fraction] 98 % Bernice Ewing Other [facility] Other 03-14-2023 16:15-0400 Systolic blood pressure 132 mm[Hg] Bernice Ewing Other [employer] Other 12-02-2022 11:00-0500 Body height 172.72 cm Bernice Ewing Other [employer] Other 12-02-2022 11:00-0500 Body mass index (BMI) [Ratio] 36.64 kg/m2 Bernice Ewing Other [employer] Other 12-02-2022 11:00-0500 Body weight 109.32 kg Bernice Ewing Other [facility] Other 12-02-2022 11:00-0500 Diastolic blood pressure 72 mm[Hg] Bernice Ewing Other [facility] Other 12-02-2022 11:00-0500 SaO2% (BldA) [Mass fraction] 97 % Bernice Ewing Other [facility] Other 12-02-2022 11:00-0500 Systolic blood pressure 116 mm[Hg] Bernice Ewing Other [facility] Other Encounters Encounter Date Encounter Type Care Provider Facility Start: 07-17-2024 End: 07-17-2024 [facility] Work Phone: Start: 07-17-2024 End: 07-17-2024 Patient encounter procedure [facility] Work Phone: Start: 03-07-2024 End: 03-07-2024 ambulatory [facility] Work Phone: Start: 03-07-2024 End: 03-07-2024 Patient encounter procedure [facility] Work Phone: Start: 02-16-2024 End: 02-16-2024 ambulatory [facility] Work Phone: Start: 02-16-2024 End: 02-16-2024 Patient encounter procedure [facility] Work Phone: Start: 01-29-2024 End: 01-29-2024 ambulatory [facility] Work Phone: Start: 01-29-2024 End: 01-29-2024 Patient encounter procedure [facility] Work Phone: Start: 01-25-2024 Non-patient / Non-visit [facility] Work Phone: Start: 01-12-2024 End: 01-12-2024 Patient encounter procedure [facility] Work Phone: Start: 12-25-2023 End: 12-25-2023 ambulatory Bernice Ewing Other [employer] Other Start: 12-25-2023 Office outpatient vi sit 15 minutes Bernice Ewing [facility] Start: 12-18-2023 End: 12-18-2023 ambulatory Bernice Ewing Other [employer] Other Start: 12-18-2023 Office outpatient vi sit 15 minutes Bernice Ewing [facility] Start: 12-18-2023 Telephone encounter Bernice Ewing [facility] Start: 09-14-2023 End: 09-14-2023 ambulatory Bernice Ewing Other [facility] Other Start: 09-14-2023 Office outpatient vi sit 15 minutes Bernice Ewing [facility] Start: 07-25-2023 End: 07-25-2023 ambulatory Rufus Leung Other [facility] Other Start: 07-25-2023 Telephone encounter Rufus Leung [facility] Start: 07-24-2023 End: 07-24-2023 ambulatory Jimmy House Facility:[facility] Start: 07-24-2023 End: 07-24-2023 ambulatory DO Jimmy House Work Phone: [facility] Work Phone: Start: 07-24-2023 End: 07-24-2023 Patient encounter procedure DO Jimmy House Work Phone: [facility] [place] Work Phone: Start: 07-20-2023 End: 07-20-2023 ambulatory Jimmy House Facility:[facility] Start: 07-20-2023 Office outpatient ne w 45 minutes Rufus Leung [facility] Start: 07-20-2023 End: 07-20-2023 ambulatory DO Jimmy House Work Phone: [facility] Work Phone: Start: 07-20-2023 End: 07-20-2023 Patient encounter procedure DO Jimmy House Work Phone: [facility] Start: 07-10-2023 End: 07-10-2023 ambulatory Bernice Ewing Other [facility] Other Start: 07-10-2023 Office outpatient vi sit 15 minutes Bernice Ewing [facility] Start: 07-07-2023 End: 07-07-2023 ambulatory Bernice Ewing Other [facility] Other Start: 07-07-2023 Telephone encounter Bernice Ewing [facility] Start: 05-01-2023 End: 05-01-2023 ambulatory Bernice Ewing Other [facility] Other Start: 05-01-2023 Telephone encounter Bernice Ewing [facility] Start: 03-14-2023 End: 03-14-2023 ambulatory Bernice Ewing Other [employer] Other Start: 03-14-2023 Office outpatient vi sit 15 minutes Bernice Ewing [facility] Start: 01-27-2023 End: 01-27-2023 ambulatory Bernice Ewing Other [facility] Other Start: 01-27-2023 Telephone encounter Bernice Ewing [facility] Start: 12-08-2022 End: 12-08-2022 ambulatory Bernice Ewing Other [facility] Other Start: 12-08-2022 Telephone encounter Bernice Ewing [facility] Start: 12-02-2022 End: 12-02-2022 ambulatory Bernice Ewing Other [facility] Other Start: 12-02-2022 Encounter for genera l adult medical examination without abnormal findings Bernice Ewing [facility] Start: 12-02-2022 Office outpatient vi sit 15 minutes Bernice Ewing [facility] Start: 10-11-2022 End: 10-12-[address] BERNICE EWING Facility: Start: 09-13-2022 End: 10-20-[address] BERNICE EWING Facility:[facility] Start: 08-30-[address] BERNICE EWING Facil ity:[facility] Start: 08-05-[address] BERNICE EWING Facil ity:[facility] Start: 08-03-2022 End: 08-04-2022 ambulatory Layne Gudimella Facility:[facility] Start: 08-03-2022 End: 08-03-2022 Patient encounter procedure Layne Gudimella [facility] Start: 07-30-2022 Encounter for genera l adult medical examination without abnormal findings DR BERNICE EWING [facility] Start: 07-28-2022 ambulatory Layne Gudimella Facili ty:[facility] Start: 07-25-2022 End: 07-26-[address] [...] MRI of right elbow DO C doc [facility] Work Phone: Start: 07-20-2023 Plain X-ray of right elbow DO Jimmy [facility] Work Phone: Plan of Treatment Date Care Activity Detail Author XR Chest 2 Views [facility] XR Sternum GE 2 Views [facility] Immunizations Immunization Date Immunization Notes Care Provider Fa [facility] 09-02-2021 influenza virus vaccine, split virus (incl. purified surface antigen) Bernice Ewing Other [facility] Other 09-02-2021 influenza virus vaccine, unspecified formulation Layne Gudimella [facility] 03-25-2021 SARS-CoV-2 (COVID-19 ) mRNA BNT-162b2 vax Layne Gudimella [facility] 03-04-2021 SARS-CoV-2 (COVID-19 ) mRNA BNT-162b2 vax Layne Gudimella [facility] 08-23-2020 influenza virus vaccine, split virus (incl. purified surface antigen) Bernice Ewing Other [facility] Other 08-23-2020 influenza virus vaccine, unspecified formulation Layne Ramírez [facility] Payers Date Payer Category Payer Self-pay 2011 Private Health Insurance [id number] 1975 Unknown [id number] 1975 Unknown [id number] 1975 Unknown [id number] 1975 Unknown [id number] 1975 Unknown [id number] 1975 Unknown [id number] 1975 Unknown [id number] 1975 Unknown [id number] 1975 Unknown [id number] 1975 Unknown [id number] 1959 Unknown [id number] Private Health Insurance [employer] [id number] Private Health Insurance [employer] [id number] Unknown [id number] Unknown [id number] Social History Date Type Detail Facility Tobacco smoking status No Smoking Status Entered [facility] Sex Assigned At Male [facility] Start: 1975 Sex Assigned At Male F [facility] Start: 09-14-2023 Tobacco smoking status OKIS Tobacco smoking consumption unknown (finding) [facility] Clinical Notes 12-30-2021 to 12-25-2023 Note Date & Type Note Facility 12-25-2023 Evaluation note Encounter Date Diagnosis Assessment Notes Dec, Closed fracture of sternum with routine healing, unspecified portion of sternum, subsequent encounter (ICD-10 - S22.20XD) Reviewed [facility] report Recheck Xray today. refilled pain med. call w xray results. [facility] Other 02-05-2024 Evaluation note* Encounter Date Diagnosis Assessment Notes Treatment Notes Treatment Clinical Notes Dec, Closed fracture of sternum, unspecified portion of sternum, initial encounter (ICD-10 - S22.20XA) Followup in 1 week - discussed off work and note provided. [facility] Other 11-02-2023 Evaluation note* Encounter Date Diagnosis [...] left foot (ICD-10 - M79.672) as above [facility] Other 09-07-2023 Evaluation note* Encounter Date Diagnosis [...] ongoing plan once MRI results are obtained. [facility] Other 08-28-2023 Evaluation note* Encounter Date Diagnosis Assessment Notes Treatment Notes Treatment Clinical Notes Jun, Tear of right biceps muscle, subsequent encounter (ICD-10 - S46.211D) Pt agrees to referral to ortho for possible bicep tendon repair. Jun, Anxiety, generalized (ICD-10 - F41.1) Symptoms have worsened. Requests an increased amount of prn med. [facility] Other 05-02-2023 Evaluation note* Encounter Date Diagnosis Assessment Notes Treatment Notes Treatment Clinical Notes March, Strain of right elbow and forearm, initial encounter (ICD-10 - S56.911A) Improving, per pt. Consider PT and NSAIDs if pain does not improve further. [facility] Other 01-20-2023 Evaluation note* Encounter Date Diagnosis Assessment Notes Treatment Notes Treatment Clinical Notes Nov, Peripheral neuritis of both feet (ICD-10 - G57.93) Discussed problem at length labs will be ordered under wellness code. Patient states he gets labs once a year under wellness code. Nov, Wellness examination (ICD-10 - Z00.00) [facility] Other [id number] NotePROCEDURE: XR ANKLE LT MIN 3 V, [...] by: WILLIAM GAMING Date: 2022-10-12 08:47[facility]11-30-2022 NotePROCEDURE: XR ANKLE LT MIN 3 [...] by: WILLIAM GAMING Date: 2022-10-12 08:47[facility]09-08-2022 NotePROCEDURE: XR ANKLE LT MIN 3 [...] by: WILLIAM GAMING Date: 2022-07-21 11:47[facility]02-17-2022 NotePROCEDURE: XR FOOT RT MIN 3 [...] by: WILLIAM GAMING Date: 2021-12-30 10:04[facility] note No data available for this section [facility] [place] Evaluation noteNo InformationNort[employer] Other Evaluation noteNo assessment information available [facility] Work Phone: Evaluation note* Diagnosis Onset Date Resolution Status Fracture, sternum closed acu te [id number] acute [facility] Work Phone: Evaluation note* Diagnosis Onset Date Resolution Status Fracture, sternum closed acu te [id number] acute [id number] acute [facility] Work Phone: History general Narrative - Reported* [...] EYELID 2013 Hospitalization History SEE SURGICAL HX [facility] Other Hospital Discharge instructions No data available for this section [facility] Progress note No data available for this section [facility] Summary Purpose Family History Relationship Condition Age at Onset Recorded Date/T samuel brother Heart disease Unknown father Hypertension Unknown Murder of relative Unknown Unknown Not Specified Hypertension Unknown natural son Hypertension Unknown sister Heart disease Unknown Hypertension Unknown Relationship Condition Age at Onset Recorded Date/T samuel brother Heart disease Unknown father Hypertension Unknown Murder of relative Unknown Unknown mother Hypertension Unknown son Hypertension Unknown sister Heart disease Unknown Hypertension Unknown Advance Directives Advance Directive Response Recorded Date/ Time Advance Directives No July 11:35am Reason for Referral Reason *Waiting for appt [facility] ortho Diagnosis 1 Tear of right biceps muscle, subsequent encounter (S46.211D) Referral Organization [facility] Referring Provider First Name Bernice Referring Provider Last Name Kaylin Referring Provider Specialty Family [facility] Referred Organization [facility] Referred Provider Rufus Leung Referred Address [address], [place],[address] Referred Provider Specialty Orthopaedic Surgery Referral Priority Routine General Notes Leeanne Crockett 11:22:47 AM >received today, sent P2P Chief Complaint and Reason for Visit Chief Complaint S46.211A s46.211a Chief Complaint Sternum Check Up Amb Documentation review results Reason for Visit Fracture, sternum cl osed [id number] Chief Complaint Sternum Check Up Amb Documentation review results Ribs Reason for Visit Fracture, sternum cl osed [id number] Chief Complaint Sternum Check Up Amb Documentation review results Ribs return to work Reason for Visit Fracture, sternum cl osed [id number] Chief Complaint FMLA paperwork discu ssion Additional Source Comments (unrecognized sect ion and content) No Status Records FoundNo Status Records FoundNo Status Records Found INFORMATION SOURCE (unrecogn ized section and content) DATE CREATED AUTHOR 08/12/2022 Waylon Prabhakar [facility] DATE CREATED AUTHOR AUTHOR'S ORGANIZ ATION 11/11/2022 [facility] DATE CREATED AUTHOR AUTHOR'S ORGANIZ ATION 08/02/2023 [facility] Care Team (unrecognized sect ion and content) Team Status: Active Member Role Status Dates Jimmy Spears DO Primary Care Provider Active Team Status: Inactive Member Role Status Dates Jimmy Spears DO Primary Care Provider Active Rufus Leung DO Attending Provider Active Team Status: Active Member Role Status Dates Bernice Ewing MD Primary Care Provider Active Team Status: Inactive Member Role Status Dates Bernice Ewing MD Primary Care Provide r, Attending Provider Active Start: January 12, 2024 End: January 12, 2024 Team Status: Active Member Role Status Dates Bernice Ewing MD Primary Care Provider Active Start: January 25, 2024 LACHO Hoffman Attending Provider Active Start : January 25, 2024 Team Status: Inactive Member Role Status Dates Bernice Ewing MD Primary Care Provide r, Attending Provider Active Start: January 29, 2024 End: January 29, 2024 Team Status: Inactive Member Role Status Devin Ewing MD Primary Care Provide r, Attending Provider Active Start: February 16, 2024 End: February 16, 2024 Team Status: Inactive Member Role Status Dates Bernice Ewing MD Primary Care Provide r, Attending Provider Active Start: March 07, 2024 End: March 07, 2024 Team Status: Inactive Member Role Status Dates Bernice Ewing MD Primary Care Provide r, Attending Provider Active Start: July 17, 2024 End: July 17, 2024 REASON FOR VISIT (unrecogniz ed section and [...] BE BASED ON THE PRIMARY CLINICAL RECORDS. [facility] provides no warranty or guarantee of the accuracy or completeness of information in this document.
--- NOTE | 2024-09-15 20:12 | ECG_ITS ---
[facility] Test Date: 2024-09-15 Pat Name: REIGNALD NIELSON Department: Room: - Gender: Male [employer]: : 1975 Requested By: TAY EWING Order Number: [id number] Reading MD: SHANNON MCGEE Measurements Intervals [place] Rate: 55 P: 64 [place]: 190 QRS: 67 QRSD: 106 T: -10 QT: 422 QTc: 412 Interpretive Statements 1100 Sinus rhythm 4068 Nonspecific Twave abnormality Can't exclude inferlateral ischemia 9130 borderline ECG Electronically Signed On 09-16-2024 6:59:43 EST by SHANNON MCGEE
--- NOTE | 2024-09-15 20:24 | ED_ITS ---
HPI HPI - General Adult General Chief complaint: Recheck/Abnormal Lab/Rx Stated complaint: hypertension Time Seen by Provider: 09/15/24 20:09 Source: patient Mode of arrival: walk-in Limitations: no limitations History of Present Illness HPI narrative: This 49-year-old male with a history of obesity, hypertension and tobacco use who lost quite a bit of weight and was able to be tapered off of his losartan 100 mg and is currently taking metoprolol 50 mg presents for evaluation of elevated blood pressure. He states he has taken his blood pressure multiple times over the weekend. He states that on and Monday he did not go to work because he was feeling like 'shit'. He took a leftover 100 mg metoprolol earlier today and checked his blood pressure multiple times while he was at work. Before leaving work around 6:30 PM his blood pressure was in the 180s over 100s. He admits that over the weekend he drank a lot of alcohol, ate a lot of fast food and smoked a lot of cigarettes. This is behavior that he typically does not indulge in any longer. He denies any chest pain or shortness of breath. He denies any headache, dizziness, blurred vision slurred speech confusion or other neurologic symptoms. 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 Related Data Home Medications ?Medication ?Instructions ?Recorded ?Confirmed diazepam 10 mg tablet 10 mg PO BID PRN anxiety 09/15/24 09/15/24 metoprolol succinate 50 mg 50 mg PO DAILY 09/15/24 09/15/24 tablet,extended release 24 hr omeprazole 20 mg capsule,delayed 20 mg PO DAILY 09/15/24 09/15/24 release Previous Rx's ?Medication ?Instructions ?Recorded methocarbamol 750 mg tablet 750 mg PO Q6H PRN pain #30 tabs 12/17/23 nabumetone 750 mg tablet 750 mg PO BID PRN pain #14 tabs 12/17/23 Allergies Allergy/AdvReac Type Severity Reaction Status Date / Time No Known Drug Allergies Allergy Verified 09/15/24 20:01 Opioid HPI Opioid Management Most Recent Opioid Data: Last Pain Scale 8 12/17/23 18:15 12/17/23 Review of Systems ROS Status of ROS 10 or more systems reviewed and unremark able except as noted in history and below PFSH PFSH Social History Little interest or pleasure in doing things: not at all Feeling down, depressed, or hopeless: not at all Exam Narrative Exam Narrative: Vital signs and Nursing Notes reviewed: Patient is afebrile with a normal pulse, initial blood pressure was 190/106, during my exam his blood pressure was 169/96, he is not hypoxic with pulse ox of 98% on room air General: Awake, alert, mildly anxious but oriented, no acute distress, lying comfortably on the stretcher HEENT: Normocephalic atraumatic, mucous membranes are moist and pink, eyes are clear, normal conjunctiva, vision is grossly intact Chest: Lungs are clear to auscultation with good air entry, there is no wheezing rhonchi or rales appreciated no accessory muscle use, patient is speaking in complete sentences-no chest wall tenderness to palpation CVS: Regular rate and rhythm S1-S2, no murmurs rubs or gallops, pulses are brisk and equal bilaterally ABD: Soft, nondistended, nontender, no rebound guarding or rigidity, bowel sounds are normal, no pulsatile masses appreciated Extremities: Moving all extremities, no lower extremity tenderness or swelling noted, negative Homans' sign, pulses are brisk and equal bilaterally Skin: Normal in appearance without rash,pallor, petechiae or purpura Neuro: No focal deficits Constitutional Vital Signs, click to edit/add: Last Vital Signs Temp 98.7 F 09/15/24 19:55 Pulse 57 L 09/15/24 22:05 Resp 16 09/15/24 22:05 BP 186/90 H 09/15/24 22:05 Pulse Ox 99 09/15/24 21:36 O2 Del Method Room Air 09/15/24 21:36 Course Vital Signs Vital signs: Vital Signs Temperature 98.7 F 09/15/24 19:55 Pulse Rate 59 L 09/15/24 19:55 Respiratory Rate 18 09/15/24 19:55 Blood Pressure 190/106 H 09/15/24 19:55 Pulse Oximetry 98 09/15/24 19:55 Oxygen Delivery Method Room Air 09/15/24 19:55 Temperature 98.7 F 09/15/24 19:55 Pulse Rate 57 L 09/15/24 22:05 Respiratory Rate 16 09/15/24 22:05 Blood Pressure 186/90 H 09/15/24 22:05 Pulse Oximetry 99 09/15/24 21:36 Oxygen Delivery Method Room Air 09/15/24 21:36 Medical Decision Making MDM Narrative Medical decision making narrative: This 49-year-old male with a history of hypertension who is also an intermittent smoker and was formerly overweight but has lost a significant amount of weight and has been taken off of his losartan 100 mg presents for evaluation of elevated blood pressure over the past weekend. He admits that he has been drinking, smoking and eating a lot of fast food which is out of the ordinary for him. He did not work on or Monday because he stated he was feeling like shit. He started taking his blood pressure over the weekend and has gone up as high as the 180s over 100s. He denies any chest pain or shortness of breath. He denies any neurosymptoms. Upon arrival his blood pressure was in the 180s over 90s. Prior to me seeing him and gone down to 169/96. He was given a dose of oral Norvasc and EKG and routine labs ordered. He has a normal EKG with some flipped T waves in 2 and aVF. He has a normal white count and hemoglobin. Electrolytes are normal with exception of a potassium of 3.2. LFTs and troponin are normal. While in the emergency department his blood pressure was rechecked and has continued to fluctuate and was as high as 190/105 manually. He was given a dose of clonidine at that time. He was also given or al potassium supplementation. Repeat blood pressure is still 170/90 but improved. He is otherwise hemodynamically stable. He states he placed a call to his family doctor over the weekend and will touch base with her tomorrow regarding the prescription for Norvasc I am giving him as well as the fact that he needs his Valium prescription refilled. He stated to me that he was going to take these m edications and check his blood pressure every 2 hours which i strongly recommended he not do as every time he takes it it will likely become higher and he will become more anxious. He verbalizes understanding of this and agrees that he will not take his blood pressure every 2 hours. I did suggest that he cut back on alcohol, cigarettes and fast food as these appear to be contributors to his elevated blood pressure at this time. Lab Data Lab results reviewed: Yes I reviewed the patient's lab results Labs: Lab Results 09/15/24 Range/Units 20:32 WBC 9.8 (4.0-11.0) 10^3/uL RBC 4.11 L (4.70-6.10) 10^6/uL Hgb 13.7 L (14.0-18.0) g/dL Hct 39.4 L (42.0-54.0) % MCV 95.9 H (80.0-94.0) fL MCH 33.3 (25.9-34.0) pg MCHC 34.8 (29.9-35.2) g/dL RDW 13.4 (11.0-15.0) % Plt Count 197 (150-450) 10^3/uL MPV 10.1 (9.5-13.5) fL Neut % (Auto) 64.3 (43.0-75.0) % Lymph % (Auto) 26.1 (20.5-60.0) % [place] % (Auto) 8.7 (1.7-12.0) % Eos % (Auto) 0.5 L (0.9-7.0) % Baso % (Auto) 0.2 (0.2-2.0) % Neut # (Auto) 6.3 (1.4-6.5) 10^3/uL Lymph # (Auto) 2.6 (1.2-3.8) 10^3/uL [place] # (Auto) 0.9 H (0.3-0.8) 10^3/uL Eos # (Auto) 0.1 (0.0-0.7) 10^3/uL Baso # (Auto) 0.0 (0.0-0.1) 10^3/uL Abs Immat Gran (auto) 0.02 (0.00-0.03) 10^3/uL Imm/Tot Granulo (auto) 0.2 (0.0-0.5) % Sodium 139 (136-145) mmol/L Potassium 3.2 L (3.5-5.1) mmol/L Chloride 102 (98-107) mmol/L Carbon Dioxide 26.1 (21.0-32.0) mmol/L Anion Gap 14.1 BUN 14.0 (7.0-18.0) mg/dL Creatinine 0.94 (0.70-1.30) mg/dL Est GFR ( Amer) >60 (>=60 mL/min/1.73m^2) Est GFR (Non-Af Amer) >60 (>=60 mL/min/1.73m^2) BUN/Creatinine Ratio 14.9 Glucose 83 (74-106) mg/dL Calcium 8.9 (8.5-10.1) mg/dL Total Bilirubin 0.5 (0.2-1.0) mg/dL AST 23 (15-37) U/L ALT 30 (16-63) U/L Alkaline Phosphatase 61 (46-116) U/L Troponin I High Sens 4.7 (4.0-76.1) pg/mL Total Protein 7.1 (6.4-8.2) g/dL Albumin 3.7 (3.4-5.0) g/dL Globulin 3.4 g/dL Albumin/Globulin Ratio 1.1 ECG Data Attestation: I personally reviewed and interpreted this ECG as follows: (Sinus rhythm at 55 bpm, normal axis, T wave inversions in lead III and aVF, no acute ST segment elevation) Discharge Plan Discharge Chief Complaint: Recheck/Abnormal Lab/Rx Clinical Impression: Accelerated essential hypertension, Hypokalemia Patient Disposition: Home, Self-Care Prescriptions / Home Meds: No Action nabumetone 750 mg tablet 750 mg PO BID PRN (Reason: pain) Qty: 14 0RF methocarbamol 750 mg tablet 750 mg PO Q6H PRN (Reason: pain) Qty: 30 0RF diazepam 10 mg tablet 10 mg PO BID PRN (Reason: anxiety) metoprolol succinate 50 mg tablet extended release 24 hr 50 mg PO DAILY omeprazole 20 mg capsule,delayed release(DR/EC) 20 mg PO DAILY Print Language: American Instructions: Heart Healthy Diet (ED), Hypokalemia (ED), Chronic Hypertension (ED), DASH Eating Plan (ED) Referrals: Bernice Sahu MD [Primary Care Provider] - 1 week
[2024-09-15 20:38] LABS: Basophils Percent Auto 0.2 % (0.2-2.0); Eosinophils Absolute Auto 0.1 10^3/uL (0.0-0.7); Eosinophils Percent Auto 0.5 % (0.9-7.0); Hematocrit 39.4 % (42.0-54.0); Hemoglobin 13.7 g/dL (14.0-18.0); Immature Granulocytes Abs Auto 0.02 10^3/uL (0.00-0.03); Immature Granulocytes Pct Auto 0.2 % (0.0-0.5); Lymphocytes Absolute Auto 2.6 10^3/uL (1.2-3.8); Lymphocytes Percent Auto 26.1 % (20.5-60.0); Mean Corpuscular HGB Conc 34.8 g/dL (29.9-35.2); Mean Corpuscular Hemoglobin 33.3 pg (25.9-34.0); Mean Corpuscular Volume 95.9 fL (80.0-94.0); Mean Platelet Volume 10.1 fL (9.5-13.5); Monocytes Absolute Auto 0.9 10^3/uL (0.3-0.8); Monocytes Percent Auto 8.7 % (1.7-12.0); Neutrophils Absolute Auto 6.3 10^3/uL (1.4-6.5); Neutrophils Percent Auto 64.3 % (43.0-75.0); Platelet Count 197 10^3/uL (150-450); Red Blood Count 4.11 10^6/uL (4.70-6.10); Red Cell Distribution Width 13.4 % (11.0-15.0); White Blood Count 9.8 10^3/uL (4.0-11.0)
[2024-09-15] MEDS: AMLODIPINE BESYLATE 5 MG TABLET PO (20:38)
[2024-09-15 20:56] LABS: Alanine Aminotransferase 30 U/L (16-63); Albumin Globulin Ratio 1.1; Albumin Level 3.7 g/dL (3.4-5.0); Alkaline Phosphatase 61 U/L (46-116); Anion Gap 14.1; Aspartate Amino Transferase 23 U/L (15-37); BUN Creatinine Ratio 14.9; Bilirubin Total 0.5 mg/dL (0.2-1.0); Calcium 8.9 mg/dL (8.5-10.1); Carbon Dioxide 26.1 mmol/L (21.0-32.0); Chloride 102 mmol/L (98-107); Estimated GFR (African America >60 (>=60 mL/min/1.73m^2); Estimated GFR (Non-African Ame >60 (>=60 mL/min/1.73m^2); Globulin 3.4 g/dL; Glucose 83 mg/dL (74-106); Potassium 3.2 mmol/L (3.5-5.1); Sodium 139 mmol/L (136-145); Total Protein 7.1 g/dL (6.4-8.2); Troponin I High Sensitivity 4.7 pg/mL (4.0-76.1)
[2024-09-15] MEDS: CLONIDINE HCL 0.1 MG TABLET PO (21:44)
[2024-09-15] MEDS: POTASSIUM CHLORIDE 10 MEQ ER TABLET 20 MEQ PO (22:02)
== END 2024-09-15 23:24 | disposition home or self-care (01) ==
PROVIDERS: Emergency Provider Emergency Medicine; PCP Family Medicine
DX: I10 Essential (primary) hypertension (principal); E87.6 Hypokalemia; F17.210 Nicotine dependence, cigarettes, uncomplicated
CPT/HCPCS: 36415; 80053; 84484; 85025; 93005; 99284

== ENCOUNTER 2025-02-03 10:44 | Outpatient (OUT) | payer BC, SELFPAY ==
--- OUTSIDE RECORDS SUMMARY | 2025-02-03 11:06 | XMS_ITS | CCD ---
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 Role Phone Layne Ramírez Attending Unavailable [...] EWING, DR BERNICE [facility] Unavailable FAIRBANKS, DR EDUARD [employer] Unavailable KATINA CAT [...] Care Provider DO Rufus Leung Attending Provider [phone] Rufus Leung Unavailable Jimmy Spears [facility] Unavailable Rufus Leung Admitting Unavailable Rufus Leung Attending Unavailable Jimmy Spe[facility] Unavailable Rufus Leung Admitting Unavailable Rufus Leung Attending Unavailable Allergies Allergy Classification Reported Allergen(s) Allergy Type Date of Onset Reaction(s) Facility (9 sources) traMADol Drug Allergy Comment:pt states he is not allergic to tramadol [facility] Other Medications Current Medications Medication Drug Class(es) Dates Sig (Normalized) Sig (Original) Albuterol Sulfate 108 (90 Base) MCG/ACT (14 sources) take 1 puff(s) by inhalation every four hours as needed Albuterol Sulfate 108 (90 Base) MCG/ACT 1 puff as needed Inhalation every 4 hrs Active allopurinol 300 mg oral tablet (5 sources) Xanthine Oxidase Inhibitor take 1 tablet by mouth once daily Allopurinol 300 MG TAKE 1 TABLET BY MOUTH EVERY DAY for Active amLODIPine 10 mg oral tablet (14 sources) Dihydropyridine Calcium Channel [facility] Start: 12-10-2024 take 1 tablet by mouth once daily Amlodipine 10 mg tablet Active 10 MG PO Daily December 10, 2024 11:03am Start: 09-17-2024 End: 12-10-2024 take 1 tablet by mouth once daily Amlodipine 5 mg tablet Discontinued 5 MG PO Daily September 17, 2024 11:01am September 25, 2024 10:04am dicyclomine hydrochloride 20 mg oral tablet (3 sources) Anticholinergic take 1 tablet by mouth every eight hours Dicyclomine HCl 20 MG 1 tablet Orally Three times a day Active losartan potassium 50 mg oral tablet (3 sources) Angiotensin 2 Receptor [facility] take 1 tablet by mouth every twenty-four hours Losartan Potassium 50 MG 1 tablet Orally Once a day Active Metoprolol (20 sources) beta-Adrenergic [facility] Start: 08-26-20 take 1 tablet by mouth once daily Metoprolol Succinate 50 mg tablet extended release 24 hr Active 0 .ROUTE .COMPLEX August 26, 2024 8:19am TAKE 1 TABLET BY MOUTH EVERY DAY Start: 08-26-2024 take 1 tablet by ashanti once daily Metoprolol Succinate 50 mg tablet extended release 24 hr Active 0 .ROUTE .COMPLEX August 26, 2024 7:19am TAKE 1 TABLET BY MOUTH EVERY DAY Start: 08-26-2024 take 1 tablet by ashanti th once daily Metoprolol Succinate Active 0 .ROUTE .COMPLEX August 26, 2024 7:19am TAKE 1 TABLET BY MOUTH EVERY DAY Start: 01-11-2024 End: 08-26-2024 take 1 tablet by mouth once daily Metoprolol Succinate 50 mg tablet extended release 24 hr Discontinued 50 MG PO Daily January 11, 2024 1:00am August 26, 2024 8:20am take 1 tablet by ashanti th once daily Metoprolol Succinate ER 50 MG TAKE 1 TABLET BY MOUTH EVERY DAY for 90 days Active take 1 tablet by ashanti th once daily Metoprolol Succinate ER 100 MG TAKE 1 TABLET BY MOUTH EVERY DAY for 90 Active nabumetone 750 mg oral tablet (4 sources) Nonsteroidal Anti-inflammatory Drug Nabumetone 750 MG 1 tablet twice a day prn for 14 days Active Omeprazole 20 mg capsule,delayed release(DR/EC) (3 sources) Start: 11-18-19 take 1 capsule by mouth once daily Omeprazole 20 mg capsule,delayed release(DR/EC) Active 0 .ROUTE .COMPLEX November 18, 2024 1:40pm TAKE 1 CAPSULE BY MOUTH EVERY DAY Start: 11-18-2024 take 1 capsule by mo [facility] once daily Omeprazole 20 mg capsule,delayed release(DR/EC) Active 0 .ROUTE .COMPLEX November 18, 2024 12:40pm TAKE 1 CAPSULE BY MOUTH EVERY DAY traMADol hydrochloride 50 mg oral tablet (3 [...] 1 tablet by mouth every eight hours as needed for pain Oxycodone-Acetamino phen (Endocet) 5-325 mg tablet Discontinued 1 TAB PO Every 8 hours as needed for pain 20 February 07, 2024 March 04, 2024 9:10am Start: 01-05-2024 End: 02-07-2024 take 1 tablet by mouth every six hours as needed for pain Oxycodone-Acetaminophen (Endocet) 5-325 mg tablet Discontinued 1 TAB PO Every 6 hours as needed for pain 28 7 January 25, 2024 February 07, 2024 1:19pm Start: 12-25-2023 take 1 tablet by ashanti th every six hours Endocet 5-325 MG 1 tablet as needed Oral ly every 6 hrs for 7 days Dec, Active Start: 12-18-2023 take 1 tablet by ashanti th every six hours Endocet 5-325 MG 1 tablet as needed Oral ly every 6 hrs for 7 days Dec, Active 200 actuat albuterol 0.09 mg/actuat dry powder inhaler (8 sources) beta2-Adrenergic Agonist Start: 01-11-2024 End: 01-14-2025 Albuterol Sulfate 90 mcg/actuation aerosol powdr breath activated Discontinued 1 INH INHALATION Every 4 hours as needed January 11, 2024 1:00am January 14, 2025 11:15am cyclobenzaprine hydrochloride 10 mg oral tablet (9 sources) Muscle Relaxant Start: 03-07-2024 End: 09-17-2024 take 1 tablet by mouth once daily at bedtime Cyclobenzaprine 10 mg tablet Discontinued 10 MG PO Daily at bedtime March 07, 2024 12:00am September 17, 2024 11:05am take 1 tablet by ashanti every twenty-four hours Cyclobenzaprine HCl 10 MG 1 tablet at bedtime as needed Orally Once a day Active diazePAM 5 mg oral tablet (20 sources) Benzodiazepine Start: 02-28-2024 End: 09-17-2024 take 1 tablet by mouth twice daily as needed for anxiety Diazepam 5 mg tablet Discontinued 5 MG PO Twice daily as needed for anxiety 50 July 23, 2024 8:43am September 17, 2024 11:11am Start: 12-28-2023 End: 02-28-2024 take 1 tablet by mouth twice daily as needed for anxiety Diazepam 10 mg tablet Discontinued 10 MG PO Twice daily as needed for anxiety 60 February 28, 2024 9:29pm February 28, [...] Start: 01-19-2023 take 1 tablet by ashanti once daily as needed diazePAM 5 MG TAKE 1 TABLET BY MOUTH ONCE A DAY NEEDED for Jan, Active Start: 12-05-2022 diazePAM 5 MG TAKE 1 (ONE) TABLET DAILY NEEDED for Nov, Active erythromycin 0.005 mg/mg ophthalmic ointment (6 sources) Macrolide, Macrolide Antimicrobial Start: 10-24-2024 End: 01-14-2025 Erythromycin 5 mg/gram (0.5 %) ointment Discontinued 1 APPLIC EYE-LEFT Daily 3.5 December 10, 2024 11:01am January 14, 2025 11:15am FLUoxetine 20 mg oral capsule (7 sources) Serotonin Reuptake Inhibitor Start: 09-17-2024 End: 10-24-2024 take 1 capsule by mouth once daily Fluoxetine 20 mg capsule Discontinued 20 MG PO Daily September 25, 2024 10:04am October 24, 2024 10:53am methocarbamol 750 mg oral tablet (12 sources) Muscle Relaxant Start: 01-11-2024 End: 03-07-2024 take 1 tablet by mouth every six hours as needed Methocarbamol 750 mg tablet Discontinued 750 MG PO Every 6 hours as needed January 11, 2024 1:00am March 07, 2024 11:01am Methocarbamol 75 0 MG 1 taablet every 6 hrs prn Active methylPREDNISolone 4 mg oral tablet (5 sources) Corticosteroid Start: 01-14-2025 End: 02-03-2025 take 1 tablet by mouth once Methylprednisolone (Medrol (Asif)) 4 mg tablets,dose pack Discontinued 0 PO per package directions January 14, 2025 1:00am February 03, 2025 8:35am PO PER PKG DIR for 6 days take 1 tablet by mouth every twe lve hours Medrol 4 MG 1 tablet with food or milk Orally every 12 hrs Active omeprazole 20 mg delayed release oral capsule (20 sources) Proton Pump Inhibitor Start: 01-11-2024 End: 11-18-2024 take 1 capsule by mouth once daily Omeprazole 20 mg capsule,delayed release(DR/EC) Discontinued 20 MG PO Daily January 11, 2024 1:00am November 18, 2024 1:40pm take 1 capsule by mouth once dax ly Omeprazole 20 MG TAKE 1 CAPSULE BY MOUTH EVERY DAY for 90 Active Problems Active Problems Problem Classification Problem Date Documented Date Episodic/Chronic Abdominal pain (18 sources) Unspecified abdominal pain; Translations: [Abdominal pain] Onset: 02-14-2022 Episodic Anxiety disorders (20 sources) Acute stress disorder; Translations: [Acute stress reaction] Chronic Chronic obstructive pulmonary disease and bronchiectasis (14 sources) Bronchitis; Translations: [Bronchitis, not specified as acute or chronic] Episodic Disorders of lipid metabolism (20 sources) Dyslipidemia; Translations: [Hyperlipidemia, unspecified] 01-11-2024 Chronic Esophageal disorders (20 sources) Gastroesophageal reflux disease; Translations: [Gastro-esophageal reflux disease without esophagitis] 01-11-2024 Chronic Essential hypertension (20 sources) Essential hypertension; Translations: [Essential (primary) hypertension] Chronic Fever of unknown origin (14 sources) Fever; Translations: [Fever, unspecified] Episodic Gout and other crystal arthropathies (14 sources) Gout; Translations: [Gout, unspecified] Chronic Inflammation; infection of eye (except that caused by tuberculosis or sexually transmitteddisease) (9 sources) External hordeolum; Translations: [Hordeolum externum left lower eyelid] 10-24-2024 Episodic Noninfectious gastroenteritis (5 sources) Gastroenteritis; Translations: [Noninfective gastroenteritis and colitis, unspecified] 10-24-2024 Episodic Osteoarthritis (4 sources) Primary osteoarthritis, unspecified ankle [...] Onset: 12-30-2021 Episodic Other connective tissue disease (20 sources) Peripheral neurogenic pain; Translations: [Neuralgia and [...] fracture of other bone] Episodic Other fractures (8 sources) Closed fracture of sternum; Translations: [Unspecified fracture of sternum, initial encounter for closed fracture] 01-29-2024 Episodic Other fractures (8 sources) Fracture of sternum; Translations: [Unspecified fracture of sternum, subsequent encounter for fracture with routine healing] 01-29-2024 Episodic Other nervous system disorders (14 sources) Mononeuropathy of lower limb; Translations: [Unspecified mononeuropathy of right lower limb] Chronic Other nervous system disorders (1 source) Unspecified mononeuropathy of bilateral lower limbs Chronic Other nervous system disorders (8 sources) Right leg peripheral neuropathy; Translations: [Unspecified mononeuropathy of right lower limb] 01-11-2024 Chronic Other nervous system disorders (1 source) Unspecified mononeuropathy of right lower limb; Translations: [Mononeuritis of lower limb, unspecified] 02-03-2025 Chronic Other non-traumatic joint disorders (14 sources) Arthralgia of the ankle and/or foot; Translations: [Pain in right ankle and joints of right foot] Episodic Other nutritional; endocrine; and metabolic disorders (20 sources) Obesity; Translations: [Obesity, unspecified] 01-11-2024 Chronic Other nutritional; endocrine; and metabolic disorders (14 sources) Hyperuricemia without signs of inflammatory arthritis and tophaceous disease; Translations: [Hyperuricemia without signs of inflammatory arthritis and tophaceous disease] Episodic Other screening for suspected conditions (not mental disorders or infectious disease) (20 sources) Serum ferritin high; Translations: [Other specified abnormal findings of blood chemistry] Episodic Other upper respiratory infections (1 source) Acute upper respiratory infection, unspecified; Translations: [Acute upper respiratory infections of unspecified site] 01-14-2025 Episodic Sprains and strains (4 sources) Sprain [...] 02-16-2022 Episodic Other aftercare (1 source) Other correction (current) drug therapy; Translations: [OTH STABLE HAND CURRENT DRUG THERAPY] Onset: 07-22-2022 Episodic Other [...] Translations: [Post-COVID syndrome] Unclassified (5 sources) 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); Translations: [Post-COVID syndrome] Results Test Name Value Interpretation Reference Range Facility Basophils Auto (Bld) [#/Vol] on 09-15-2024 Basophils (Bld) [#/Vol] 0.0 10 3/uL 0.0-0.1 [facility] Basophils (Bld) [#/Vol] Automated basophil count 0.0-0.1 [facility] Basophils/100 WBC Auto (Bld) on 09-15-2024 Basophils/100 WBC (Bld) 0.2 % 0.2-2.0 [facility] Basophils/100 WBC (Bld) Automated basophil % 0.2-2.0 [facility] Eosinophils/100 WBC Auto (Bl d)on 09-15-2024 Eosinophils/100 WBC (Bld) 0.5 % Low 0.9-7.0 [facility] Eosinophils/100 WBC (Bld) Automated eosinophil % Low 0.9-7.0 [facility] Erythrocyte distribution wid th Auto (RBC) [Ratio]on 09-15-2024 Erythrocyte distribution width (RBC) [Ratio] 13.4 % 11.0-15.0 [facility] Erythrocyte distribution width (RBC) [Ratio] Erythrocyte distribution width [Ratio] by Automated count 11.0-15.0 [facility] Estimated glomerular filtrat ion rate (GFR) non- Americanon 09-15-2024 GFR/1.73 sq M.predicted among non-blacks MDRD (S/P/Bld) [Vol rate/Area] mL/min/{1.73_m2} >=60 mL/min/1.73m 2 [facility] GFR/1.73 sq M.predicted among non-blacks MDRD (S/P/Bld) [Vol rate/Area] Estimated glomerular filtration rate (GFR) non- >=60 mL/min/1.73m 2 [facility] Globulin Calc (S) [Mass/Vol] on 09-15-2024 Globulin (S) [Mass/Vol] 3.4 g/dL [facility] Globulin (S) [Mass/Vol] Serum globulin measurement by calculation (mass/volume) [facility] Hematocrit Auto (Bld) [Volum e fraction]on 09-15-2024 Hematocrit (Bld) [Volume fraction] 39.4 % Low 42.0-54.0 [facility] Hematocrit (Bld) [Volume fraction] Hematocrit [Volume Fraction] of Blood by Automated count Low 42.0-54.0 [facility] Hemoglobin [Mass/volume] in Bloodon 09-15-2024 Hemoglobin (Bld) [Mass/Vol] 13.7 g/dL Low 14.0-18.0 [facility] Hemoglobin (Bld) [Mass/Vol] Hemoglobin [Mass/volume] in Blood Low 14.0-18.0 [facility] Laboratory - Chemistry and C hemistry - challengeon 09-15-2024 Albumin [Mass/Vol] 3.7 g/dL 3.4-5.0 [facility] ALP [Catalytic activity/Vol] 61 U/L 46-116 [facility] ALT [Catalytic activity/Vol] 30 U/L 16-63 [facility] AST [Catalytic activity/Vol] 23 U/L 15-37 [facility] Bilirubin [Mass/Vol] 0.5 mg/dL 0.2-1.0 [facility] Calcium [Mass/Vol] 8.9 mg/dL 8.5-10.1 [facility] Chloride [Moles/Vol] 102 mmol/L 98-107 [facility] CO2 [Moles/Vol] 26.1 mmol/L 21.0-32.0 [facility] Creatinine [Mass/Vol] 0.94 mg/dL 0.70-1.30 [facility] GFR/1.73 sq M.predicted MDRD (S/P/Bld) [Vol rate/Area] mL/min/{1.73_m2} >=60 mL/min/1.73m 2 [facility] Glucose [Mass/Vol] 83 mg/dL 74-106 [facility] Potassium [Moles/Vol] 3.2 mmol/L Low 3.5-5.1 [facility] Protein [Mass/Vol] 7.1 g/dL 6.4-8.2 [facility] Sodium [Moles/Vol] 139 mmol/L 136-145 [facility] Urea nitrogen [Mass/Vol] 14.0 mg/dL 7.0-18.0 [facility] Urea nitrogen/Creatinine [Mass ratio] 14.9 mg/mg [facility] Laboratory - Hematology and Cell countson 09-15-2024 Immature granulocytes/100 WBC (Bld) 0.2 % 0.0-0.5 [facility] Leukocytes [#/volume] correc donavan for nucleated erythrocytes in Blood by Automated counon 09-15-2024 WBC corrected for nucl RBC Auto (Bld) [#/Vol] 9.8 10 3/uL 4.0-11.0 [facility] WBC corrected for nucl RBC Auto (Bld) [#/Vol] Leukocytes [#/volume] corrected for nucleated erythrocytes in Blood by Automated coun .0-11.0 [facility] Lymphocytes Auto (Bld) [#/Vo l]on 09-15-2024 Lymphocytes (Bld) [#/Vol] 2.6 10 3/uL 1.2-3.8 [facility] Lymphocytes (Bld) [#/Vol] Lymphocytes [#/volume] in Blood by Automated count 1.2-3.8 [facility] Lymphocytes/100 WBC Auto (Bl d)on 09-15-2024 Lymphocytes/100 WBC (Bld) 26.1 % 20.5-60.0 [facility] Lymphocytes/100 WBC (Bld) Lymphocytes/100 leukocytes in Blood by Automated count 20.5-60.0 [facility] MCH Auto (RBC) [Entitic mass ]on 09-15-2024 MCH (RBC) [Entitic mass] 33.3 pg 25.9-34.0 [facility] MCH (RBC) [Entitic mass] MCH [Entitic mass] by Automated count 25.9-34.0 [facility] MCHC Auto (RBC) [Mass/Vol]on 09-15-2024 MCHC (RBC) [Mass/Vol] 34.8 g/dL 29.9-35.2 [facility] MCHC (RBC) [Mass/Vol] MCHC [Mass/volume] by Automated count 29.9-35.2 [facility] MCV Auto (RBC) [Entitic vol] on 09-15-2024 MCV (RBC) [Entitic vol] 95.9 fL High 80.0-94.0 [facility] MCV (RBC) [Entitic vol] MCV [Entitic volume] by Automated count High 80.0-94.0 [facility] Monocytes Auto (Bld) [#/Vol] on 09-15-2024 Monocytes (Bld) [#/Vol] 0.9 10 3/uL High 0.3-0.8 [facility] Monocytes (Bld) [#/Vol] Automated blood monocyte count High 0.3-0.8 [facility] Monocytes/100 WBC Auto (Bld) on 09-15-2024 Monocytes/100 WBC (Bld) 8.7 % 1.7-12.0 [facility] Monocytes/100 WBC (Bld) Automated monocyte % 1.7-12.0 [facility] Neutrophils Auto (Bld) [#/Vo l]on 09-15-2024 Neutrophils (Bld) [#/Vol] 6.3 10 3/uL 1.4-6.5 [facility] Neutrophils (Bld) [#/Vol] Neutrophils [#/volume] in Blood by Automated count 1.4-6.5 [facility] Neutrophils/100 WBC Auto (Bl d)on 09-15-2024 Neutrophils/100 WBC (Bld) 64.3 % 43.0-75.0 [facility] Neutrophils/100 WBC (Bld) Automated neutrophil % 43.0-75.0 [facility] No Panel Informationon 09-15 Eosinophils # (Auto) 0.1 10 3/uL 0.0-0.7 [facility] Immature Granulocyte # (Auto) 0.02 10 3/uL 0.00-0.03 [facility] Troponin I High Sensitivity 4.7 pg/mL 4.0-76.1 [facility] Comment on above: CUT-OFF POINTS HAVE BEEN ESTABLISHED BASED ON THE FOURTHUNIVERSAL DEFINITION OF MYOCARDIAL INFARCTION. THE UPPERREFERENCE LIMIT (URL) OF TROPONIN, DEFINED THE 99THPERCENTILE OF cTnI DISTRIBUTION IN A REFERENCE POPULATION,HAS BEEN CONFIRMED THE DECISION THRESHOLD FOR MIDIAGNOSIS.99TH PERCENTILE = 76.2 PG/MLNOTE: HIGH-SENSITIVITY TROPONIN ASSAY IS NOT INTENDED TO BEUSED IN ISOLATION BUT SHOULD BE INTERPRETED IN CONJUNCTIONWITH OTHER DIAGNOSTIC AND CLINICAL INFORMATION. Platelet mean volume Auto (B ld) [Entitic vol]on 09-15-2024 Platelet mean volume (Bld) [Entitic vol] 10.1 fL 9.5-13.5 [facility] Platelet mean volume (Bld) [Entitic vol] Platelet mean volume [Entitic volume] in Blood by Automated count 9.5-13.5 [facility] Platelets Auto (Bld) [#/Vol] on 09-15-2024 Platelets (Bld) [#/Vol] 197 10 3/uL 150-450 [facility] Platelets (Bld) [#/Vol] Platelets [#/volume] in Blood by Automated count 150-450 [facility] RBC Auto (Bld) [#/Vol]on RBC (Bld) [#/Vol] 4.11 10 6/uL Low 4.70-6.10 [facility] RBC (Bld) [#/Vol] Erythrocytes [#/volume] in Blood by Automated count Low 4.70-6.10 [facility] Serum or plasma albumin/glob ulin mass ratioon 09-15-2024 Albumin/Globulin [Mass ratio] 1.1 {ratio} [facility] Albumin/Globulin [Mass ratio] Serum or plasma albumin/globulin mass ratio [facility] Serum or plasma anion gap de terminationon 09-15-2024 Anion gap [Moles/Vol] 14.1 mmol/L [facility] Anion gap [Moles/Vol] Serum or plasma anion gap determination [facility] MR elbow RT wo conon 023 MR elbow RT wo con [facility] Main [place] [address] [place] [address] MRI Report Signed Patient: Sung Currie MR#: [id number] : 1975 Acct:[id number] Age/Sex: 48 / M ADM Date: 07/24/23 Loc: MR Room: Type: [facility] Attending Dr: Rufus Leung DO Copies to: [...] Maciel Gonzalez M.D.07/24/2023 4:30 PM Dictation Location: [id number] Transcribed By: [facility] 07/24/23 1630 Dictated By: Maciel Gonzalez II, MD 07/24/23 1622 Signed By: 07/24/23 1630 [facility] MR elbow RT wo con [facility] [employer] Other MR elbow RT wo con [facility] [employer] Other MR elbow RT wo con [address] [place] [address] [employer] [place] [address] [employer] Other MR elbow RT wo con MRI Report [facility] Other MR elbow RT wo con Signed [facility] Other MR elbow RT wo con Patient: Sung Currie MR#: [id number] [facility] Other MR elbow RT wo con : 1975 Acct:[id number] [employer] Other MR elbow RT wo con Age/Sex: 48 / M ADM Date: 07/24/23 [facility] Other MR elbow RT wo con Loc: Room: Type: [facility] [employer] Other MR elbow RT wo con Attending Dr: Rufus Leung DO [employer] Other MR elbow RT wo con Copies to: Rufus Leung DO [employer] Other MR elbow RT wo con Ordering Provider: Rufus Leung DO [facility] Other MR elbow RT wo con Date of Service: 07/24/23 [facility] Other MR elbow RT wo con MR/MR elbow RT wo con: [id number] [employer] Other MR elbow RT wo con MR elbow RT wo con 07/24/2023 12:34 PM [facility] Other MR elbow RT wo con SIGNS AND SYMPTOMS: Injury to biceps with pain from right elbow into right upper arm [facility] Other MR elbow RT wo con PROTOCOL: Multiplana r multisequence MR images of the right elbow were obtained without IV contrast [facility] Other MR elbow RT wo con COMPARISON: 07/20/2023 [facility] Other MR elbow RT wo con FINDINGS: [facility] Other MR elbow RT wo con Joint fluid: There i s a small joint effusion. [facility] Other MR elbow RT wo con Medial: [facility] Other MR elbow RT wo con Ulnar collateral ligament: Intact. [facility] Other MR elbow RT wo con Common flexor tendon : Intact. [facility] Other MR elbow RT wo con Medial epicondyle: Normal. [facility] Other MR elbow RT wo con Lateral: [facility] Other MR elbow RT wo con Radial collateral ligament: Intact. [facility] Other MR elbow RT wo con Lateral ulnar collateral ligament: Intact. [facility] Other MR elbow RT wo con Common extensor tendon: There is edema at the origin of the common extensor tendon. The tendon is [facility] Other MR elbow RT wo con grossly intact.. [employer] Other MR elbow RT wo con Lateral epicondyle: Normal. [facility] Other MR elbow RT wo con Posterior: [facility] Other MR elbow RT wo con Triceps: Intact. [facility] Other MR elbow RT wo con Olecranon: There is enthesophyte formation similar to that seen on previous radiographs. [facility] Other MR elbow RT wo con Anterior: [facility] Other MR elbow RT wo con Biceps: There is a full-thickness tear of the biceps tendon at the insertion along the radial [employer] Other MR elbow RT wo con tuberosity. The biceps tendon has been retracted by 10.7 cm. [facility] Other MR elbow RT wo con Brachialis: Intact. [facility] Other MR elbow RT wo con Bicipitoradial bursa : Intact. [facility] Other MR elbow RT wo con Articular: [facility] Other MR elbow RT wo con Radio-capitellar joint: Normal. [facility] Other MR elbow RT wo con Ulno-humeral joint: Normal. [employer] Other MR elbow RT wo con Proximal radio-ulnar joint: Normal. [facility] Other MR elbow RT wo con Bones (other than subarticular marrow): Normal. [employer] Other MR elbow RT wo con Muscles: Normal. [employer] Other MR elbow RT wo con Vessels: Normal. [facility] Other MR elbow RT wo con Nerves: Cubital tunnel normal, retinaculum intact. Anconeus epitrochlearis muscle present. [employer] Other MR elbow RT wo con Intra-articular bodies: None. [employer] Other MR elbow RT wo con MR/MR elbow RT wo con [employer] Other MR elbow RT wo con IMPRESSION: [employer] Other MR elbow RT wo con There is a full-thickness tear of the biceps tendon at the insertion along the radial tuberosity. [employer] Other MR elbow RT wo con The biceps tendon sahni s been retracted by 10.7 cm. [facility] Other MR elbow RT wo con Tendinopathy is note d at the origin of the common extensor tendon. [employer] Other MR elbow RT wo con There is enthesophyt e formation along the olecranon similar to the prior radiographs. [facility] Other MR elbow RT wo con Impression dictated by: Maciel Gonzalez M.D.07/24/2023 4:30 PM [employer] Other MR elbow RT wo con Dictation Location: [place] [address] [employer] Other MR elbow RT wo con Transcribed By: ARLEEN 07/24/23 [facility] [employer] Other MR elbow RT wo con Dictated By: Maciel Gonzalez II, MD 07/24/23 1626 [employer] Other MR elbow RT wo con Signed By: [employer] Other MR elbow RT wo con 07/24/23 1630 [facility] [employer] Other XR elbow RT 2Von 07-20-2023 XR elbow RT 2V [facility] [facility] [place] [address] [place] [address] XRay Report Signed Patient: Sung Currie MR#: [id number] : 1975 Acct:[id number] Age/Sex: 48 / M ADM Date: 07/20/23 Loc: [facility] Room: Type: [facility] CLI Attending Dr: Rufus Leung DO Copies to: [...] Nuzhat Gutierrez M.D.07/20/2023 3:40 PM Dictation Location: [place] [address] Transcribed By: [facility] 07/20/23 1540 Dictated By: Nuzhat Gutierrez MD 07/20/23 1535 Signed By: 07/20/23 1540 [facility] XR elbow RT 2V [facility] [employer] Other XR elbow RT 2V [facility] [employer] Other XR elbow RT 2V [address] [place] [address] [employer] Other XR elbow RT [address] [address] No rt [employer] Other XR elbow RT 2V XRay Report [employer] Other XR elbow RT 2V Signed [employer] Other XR elbow RT 2V Patient: Sung Currie MR#: [id number] [place] [employer] Other XR elbow RT 2V : 1975 Acct:[id number] [place] [employer] Other XR elbow RT 2V Age/Sex: 48 / M ADM Date: 07/20/23 [employer] Other XR elbow RT 2V Loc: [facility] Room: Type : REG CLI [employer] Other XR elbow RT 2V Attending Dr: Rufus Leung DO [employer] Other XR elbow RT 2V Copies to: Rufus Leung DO [employer] Other XR elbow RT 2V Ordering Provider: Rufus Leung DO [employer] Other XR elbow RT 2V Date of Service: 07/20/23 [employer] Other XR elbow RT 2V XR/XR elbow RT 2V: Rupture of right distal biceps tendon, initial [employer] Other XR elbow RT 2V encounter [employer] Other XR elbow RT 2V RIGHT ELBOW - 4 VIEWS [employer] Other XR elbow RT 2V CLINICAL HISTORY: History of right biceps injury 4-5 months ago with pain radiating from the elbow [employer] Other XR elbow RT 2V upward. [employer] Other XR elbow RT 2V COMPARISON: None Nort [employer] Other XR elbow RT 2V AP and lateral views were obtained. No acute fracture or dislocation is noted. There is an [employer] Other XR elbow RT 2V enthesophyte at the olecranon at the insertion of triceps tendon with small adjacent corticated bony [employer] Other XR elbow RT 2V ossicles. There is minimal enthesophyte formation at the humeral condyles. A small amount of joint [employer] Other XR elbow RT 2V fluid is possible. N o focal soft tissue swelling is seen. [employer] Other XR elbow RT 2V XR/XR elbow RT 2V [employer] Other XR elbow RT 2V IMPRESSION: [employer] Other XR elbow RT 2V DEGENERATIVE CHANGES. [employer] Other XR elbow RT 2V NO DEFINITE ACUTE BONY FINDINGS. [employer] Other XR elbow RT 2V Impression dictated by: Nuzhat Gutierrez M.D.07/20/2023 3:40 PM [employer] Other XR elbow RT 2V Dictation Location: [place] [address] [employer] Other XR elbow RT 2V Transcribed By: PWS 07/20/23 1540 [employer] Other XR elbow RT 2V Dictated By: Nuzhat Gutierrez MD 07/20/23 1539 [employer] Other XR elbow RT 2V Signed By: [employer] Other XR elbow RT 2V 07/20/23 1543 [employer] Other Ambulatory Visit Summaryon 0 08-03-2022 Ambulatory Visit Summary SUNG CURRIE :1975 Visit Date:08/03/2022 Ambulatory Visit Instructions Your Care Team Attending Physician - Desiree HENSLEY, Layne Primary Care Physician - Desiree HENSLEY, Layne Allergies No active allergies Normal [facility] CBC AUTO DIFFon 07-25-2022 BASO # 0.0 103/ul Normal 0.0-0.1 [facility] Comment on above: Performed By: #### C BC #### [facility] [address] [place] [address] Dr. Nini Jordan Basophils/100 WBC (Bld) 0.2 % Normal 0.2-2.0 [facility] Comment on above: Performed By: #### C BC #### [facility] [address] [place] [address] Dr. Nini Jordan EO # 0.0 103/ul Normal 0.0-0.7 [facility] Comment on above: Performed By: #### C BC #### [facility] [address] [place] [address] Dr. Nini Jordan Eosinophils/100 WBC (Bld) 0.2 % Critically low 0.9-7.0 [facility] Comment on above: Performed By: #### C BC #### [facility] [address] [place] [address] Dr. Nini Jordan Erythrocyte distribution width (RBC) [Ratio] 12.6 % Normal 11.0-15.0 [facility] Comment on above: Performed By: #### C BC #### [facility] [address] [place] [address] Dr. Nini Jordan Hematocrit (Bld) [Volume fraction] 42.5 % Normal 42.0-54.0 [facility] Comment on above: Performed By: #### C BC #### [facility] [address] [place] [address] Dr. Nini Jordan Hemoglobin (Bld) [Mass/Vol] 14.0 g/dL Normal 14.0-18.0 [facility] Comment on above: Performed By: #### C BC #### [facility] [address] [place] [address] Dr. Nini Jordan IG # 0.06 10e3/ul Critically high 0.00-0.03 [facility] Comment on above: Performed By: #### C BC #### [facility] [address] [place] [address] Dr. Nini Jordan IG % 0.6 % Critically high 0.0-0.5 [facility] Comment on above: Performed By: #### C BC #### [facility] [address] [place] [address] Dr. Nini Jordan LYMPH # 1.6 103/ul Normal 1.2-3.8 [facility] Comment on above: Performed By: #### C BC #### [facility] [address] [place] [address] Dr. Nini Jordan Lymphocytes/100 WBC (Bld) 16.5 % Critically low 20.5-60.0 [facility] Comment on above: Performed By: #### C BC #### [facility] [address] [place] [address] Dr. Nini Jordan MANUAL DIFF REQ NO Normal [facility] Comment on above: Performed By: #### C BC #### [facility] [address] [place] [address] Dr. Nini Jordan MCH (RBC) [Entitic mass] 32.6 pg Normal 25.9-34.0 [facility] Comment on above: Performed By: #### C BC #### [facility] [address] [place] [address] Dr. Nini Jordan MCHC (RBC) [Mass/Vol] 32.9 g/dL Normal 29.9-35.2 [facility] Comment on above: Performed By: #### C BC #### [facility] [address] [place] [address] Dr. Nini Jordan MCV (RBC) [Entitic vol] 98.8 fL Critically high 80.0-94.0 [facility] Comment on above: Performed By: #### C BC #### [facility] [address] [place] [address] Dr. Nini Jordan MONO # 0.7 103/ul Normal 0.3-0.8 [facility] Comment on above: Performed By: #### C BC #### [facility] [address] [place] [address] Dr. Nini Jordan Monocytes/100 WBC (Bld) 6.8 % Normal 1.7-12.0 [facility] Comment on above: Performed By: #### C BC #### [facility] [address] [place] [address] Dr. Nini Jordan NEUT # 7.4 103/ul Critically high 1.4-6.5 [facility] Comment on above: Performed By: #### C BC #### [facility] [address] [place] [address] Dr. Nini Jordan Neutrophils/100 WBC (Bld) 75.7 % Critically high 43.0-75.0 [facility] Comment on above: Performed By: #### C BC #### [facility] [address] [place] [address] Dr. Nini Jordan Platelet mean volume (Bld) [Entitic vol] 9.4 fL Critically low 9.5-13.5 [facility] Comment on above: Performed By: #### C BC #### [facility] [address] [place] [address] Dr. Nini Jordan PLT 213 103/ul Normal 150-450 [facility] Comment on above: Performed By: #### C BC #### [facility] [address] [place] [address] Dr. Nini Jordan RBC 4.30 106/ul Critically low 4.70-6.10 [facility] Comment on above: Performed By: #### C BC #### [facility] [address] [place] [address] Dr. Nini Jordan WBC 9.8 103/ul Normal 4.0-11.0 [facility] Comment on above: Performed By: #### C BC #### [facility] [address] [place] [address] Dr. Nini Jordan LIPID PROFILEon 07-25-2022 CHOL-HDL RATIO NORM SEE BELOW Normal [facility] Comment on above: Result Comment: 3.3 - 4.4 LOW RISK 4.4 - 7.1 AVERAGE RISK 7.1 - 11.0 MODERATE RISK >11.0 HIGH RISK Performed By: #### C BC #### [facility] [address] [place] [address] Dr. Nini Jordan Cholesterol [Mass/Vol] 243 mg/dL Critically high <=200 [facility] Comment on above: Performed By: #### C BC #### [facility] [address] [place] [address] Dr. Nini Jordan Cholesterol in HDL [Mass/Vol] 60 mg/dL Normal 40-60 [facility] Comment on above: Performed By: #### C BC #### [facility] [address] [place] [address] Dr. Nini Jordan Cholesterol in LDL [Mass/Vol] 162.6 mg/dL Normal [facility] Comment on above: Performed By: #### C BC #### [facility] [address] [place] [address] [address] Nini Jordan Cholesterol.total/C holesterol in HDL [Mass ratio] 4.1 {ratio} Normal [facility] Comment on above: Performed By: #### C BC #### [facility] [address] [place] [address] [address] Nini Jordan HDL NORMAL > or = 60 mg/dl - LO W CARDIOVASCULAR RISK <40 mg/dl - HIGH CARDIOVASCULAR RISK Normal [facility] Comment on above: Performed By: #### C BC #### [facility] [address] [place] [address] [address] Nini Jordan LDL CALC NORMAL SEE BELOW Normal [facility] Comment on above: Result Comment: <100 mg/dl OPTIMAL 100 - 129 mg/dl NEAR OR ABOVE OPTIMAL 130 - 159 mg/dl BORDERLINE HIGH 160 - 189 mg/dl HIGH >190 mg/dl VERY HIGH Performed By: #### C BC #### [facility] [address] [place] [address] [address] Nini Jordan Triglyceride [Mass/Vol] 102 mg/dL Normal <=150 [facility] Comment on above: Performed By: #### C BC #### [facility] [address] [place] [address] Dr. Nini Jordan VLDL CALC 20.4 mg/dL Normal [facility] Comment on above: Performed By: #### C BC #### [facility] [address] [place] [address] Dr. Nini Jordan PROF 14(COMP METB)on 022 Albumin [Mass/Vol] 3.3 g/dL Critically low 3.4-5.0 [facility] Comment on above: Performed By: #### C BC #### [facility] [address] [place] [address] Dr. Nini Jordan Albumin/Globulin [Mass ratio] 0.9 {ratio} Normal [facility] Comment on above: Performed By: #### C BC #### [facility] [address] [place] [address] Dr. Nini Jordan ALP [Catalytic activity/Vol] 72 U/L Normal 46-116 [facility] Comment on above: Performed By: #### C BC #### [facility] [address] [place] [address] Dr. Nini Jordan ALT [Catalytic activity/Vol] 46 U/L Normal 16-63 [facility] Comment on above: Performed By: #### C BC #### [facility] [address] [place] [address] Dr. Nini Jordan Anion gap [Moles/Vol] 11.0 mmol/L Normal [facility] Comment on above: Performed By: #### C BC #### [facility] [address] [place] [address] Dr. Nini Jordan AST [Catalytic activity/Vol] 25 U/L Normal 15-37 [facility] Comment on above: Performed By: #### C BC #### [facility] [address] [place] [address] Dr. Nini Jordan Bilirubin [Mass/Vol] 0.3 mg/dL Normal 0.2-1.0 [facility] Comment on above: Performed By: #### C BC #### [facility] [address] [place] [address] Dr. Nini Jordan Calcium [Mass/Vol] 8.7 mg/dL Normal 8.5-10.[address] [facility] Comment on above: Performed By: #### C BC #### [facility] [address] [place] [address] Dr. Nini Jordan Chloride [Moles/Vol] 99 mmol/L Normal 98-107 [facility] Comment on above: Performed By: #### C BC #### [facility] [address] [place] [address] Dr. Nini Jordan CO2 [Moles/Vol] 27.3 mmol/L Normal 21.0-32.0 [facility] Comment on above: Performed By: #### C BC #### [facility] [address] [place], [place] [address] Dr. Nini Jordan Creatinine [Mass/Vol] 0.87 mg/dL Normal 0.70-1.30 [facility] Comment on above: Performed By: #### C BC #### [facility] [address] [place] [address] Dr. Nini Jordan EGFR-AF [place]LANDER >60 Normal >=60 [facility] Comment on above: Performed By: #### C BC #### [facility] [address] [place] [address] Dr. Nini Jordan EGFR-NON AF [place]ER >60 Normal >=60 [facility] Comment on above: Performed By: #### C BC #### [facility] [address] [place] [address] Dr. Nini Jordan Globulin (S) [Mass/Vol] 3.7 g/dL Normal [facility] Comment on above: Performed By: #### C BC #### [facility] [address] [place] [address] Dr. Nini Jordan Glucose [Mass/Vol] 109 mg/dL Critically high 74-106 T [facility] Comment on above: Performed By: #### C BC #### [facility] [address] [place] [address] Dr. Nini Jordan Potassium [Moles/Vol] 3.3 mmol/L Critically low 3.5-5.1 [facility] Comment on above: Performed By: #### C BC #### [facility] [address] [place] [address] Dr. Nini Jordan Protein [Mass/Vol] 7.0 g/dL Normal 6.4-8.[address] [facility] Comment on above: Performed By: #### C BC #### [facility] [address] [place] [address] Dr. Nini Jordan Sodium [Moles/Vol] 134 mmol/L Critically low 136-145 [facility] Comment on above: Performed By: #### C BC #### [facility] [address] [place] [address] Dr. Nini Jordan Urea nitrogen [Mass/Vol] 20.0 mg/dL Critically high 7.0-18.0 [facility] Comment on above: Performed By: #### C BC #### [facility] [address] [place] [address] Dr. Nini Jordan Urea nitrogen/Creatinine [Mass ratio] 23.0 mg/mg Normal [facility] Comment on above: Performed By: #### C BC #### [facility] [address] [place] [address] Dr. Nini Jordan AMYLASEon 02-14-2022 AMYL <30 Normal 25-115 [facility] Comment on above: Performed By: #### C BC #### [facility] [address] [place] [address] Dr. Nini Jordan CBC AUTO DIFFon 02-14-2022 BASO # 0.0 103/ul Normal 0.0-0.1 [facility] Comment on above: Performed By: #### C BC #### [facility] [address] [place] [address] Dr. Nini Jordan Basophils/100 WBC (Bld) 0.3 % Normal 0.2-2.0 [facility] Comment on above: Performed By: #### C BC #### [facility] [address] [place] [address] Dr. Nini Jordan EO # 0.0 103/ul Normal 0.0-0.7 [facility] Comment on above: Performed By: #### C BC #### [facility] [address] [place] [address] Dr. Nini Jordan Eosinophils/100 WBC (Bld) 0.1 % Critically low 0.9-7.0 [facility] Comment on above: Performed By: #### C BC #### [facility] [address] [place] [address] Dr. Nini Jordan Erythrocyte distribution width (RBC) [Ratio] 13.4 % Normal 11.0-15.0 [facility] Comment on above: Performed By: #### C BC #### [facility] [address] [place] [address] Dr. Nini Jordan Hematocrit (Bld) [Volume fraction] 44.2 % Normal 42.0-54.0 [facility] Comment on above: Performed By: #### C BC #### [facility] [address] [place] [address] Dr. Nini Jordan Hemoglobin (Bld) [Mass/Vol] 14.8 g/dL Normal 14.0-18.0 [facility] Comment on above: Performed By: #### C BC #### [facility] [address] [place] [address] Dr. Nini Jordan IG # 0.11 10e3/ul Critically high 0.00-0.03 [facility] Comment on above: Performed By: #### C BC #### [facility] [address] [place] [address] Dr. Nini Jordan IG % 0.7 % Critically high 0.0-0.5 [facility] Comment on above: Performed By: #### C BC #### [facility] [address] [place] [address] Dr. Nini Jordan LYMPH # 1.6 103/ul Normal 1.2-3.8 [facility] Comment on above: Performed By: #### C BC #### [facility] [address] [place] [address] Dr. Nini Jordan Lymphocytes/100 WBC (Bld) 10.3 % Critically low 20.5-60.0 [facility] Comment on above: Performed By: #### C BC #### [facility] [address] [place] [address] Dr. Nini Jordan MANUAL DIFF REQ NO Normal [facility] Comment on above: Performed By: #### C BC #### [facility] [address] [place] [address] Dr. Nini Jordan MCH (RBC) [Entitic mass] 31.6 pg Normal 25.9-34.0 [facility] Comment on above: Performed By: #### C BC #### [facility] [address] [place] [address] Dr. Nini Jordan MCHC (RBC) [Mass/Vol] 33.5 g/dL Normal 29.9-35.2 [facility] Comment on above: Performed By: #### C BC #### [facility] [address] [place] [address] [address] Nini Jordan MCV (RBC) [Entitic vol] 94.2 fL Critically high 80.0-94.0 [facility] Comment on above: Performed By: #### C BC #### [facility] [address] [place] [address] [address] Nini Jordan MONO # 1.0 103/ul Critically high 0.3-0.8 [facility] Comment on above: Performed By: #### C BC #### [facility] [address] [place] [address] [address] Nini Jordan Monocytes/100 WBC (Bld) 6.4 % Normal 1.7-12.0 [facility] Comment on above: Performed By: #### C BC #### [facility] [address] [place] [address] [address] Nini Jordan NEUT # 12.5 103/ul Critically high 1.4-6.5 [facility] Comment on above: Performed By: #### C BC #### [facility] [address] [place] [address] [address] Nini Jordan Neutrophils/100 WBC (Bld) 82.2 % Critically high 43.0-75.0 [facility] Comment on above: Performed By: #### C BC #### [facility] [address] [place] [address] [address] Nini Jordan Platelet mean volume (Bld) [Entitic vol] 9.4 fL Critically low 9.5-13.5 [facility] Comment on above: Performed By: #### C BC #### [facility] [address] [place] [address] [address] Nini Jordan PLT 327 103/ul Normal 150-450 [facility] Comment on above: Performed By: #### C BC #### [facility] [address] [place] [address] [address] Nini Jordan RBC 4.69 106/ul Critically low 4.70-6.10 [facility] Comment on above: Performed By: #### C BC #### [facility] [address] [place] [address] [address] Nini Jordan WBC 15.2 103/ul Critically high 4.0-11.0 [facility] Comment on above: Performed By: #### C BC #### [facility] [address] [place], [place] [address] ABD/PELV W CONon [...] EDUARD QUIROS Date: 2022-02-14 15:30 Normal [facility] ETHANOL (BLD ALC)on 02-15-20 22 ALC NOTE NOTE: 80 mg/dl is th e legal limit for a blood alcohol level Normal [facility] Comment on above: Performed By: #### C BC #### [facility] [address] [place] [address] [address] Nini Jordan Ethanol [Mass/Vol] mg/dL Normal [facility] Comment on above: Performed By: #### C BC #### [facility] [address] [place] [address] Dr. Nini Jordan GI PANEL (PCR)on 02-14-2022 Adenovirus F 40/41 Not detected Normal NOT DETECTED [facility] Comment on above: Performed By: #### C BC #### [facility] [address] [place] [address] Dr. Nini Jordan Astrovirus Not detected Normal NOT DETECTED [facility] Comment on above: Performed By: #### C BC #### [facility] [address] [place] [address] Dr. Nini Menchaca. Diff toxin A/B Not detected Normal NOT DETECTED [facility] Comment on above: Performed By: #### C BC #### [facility] [address] [place] [address] Dr. Nini Jordan Campylobacter Not detected Normal NOT DETECTED [facility] Comment on above: Performed By: #### C BC #### [facility] [address] [place] [address] Dr. Nini Jordan Cryptosporidium Not detected Normal NOT DETECTED [facility] Comment on above: Performed By: #### C BC #### [facility] [address] [place] [address] Dr. Nini Jordan Cyclos. Cayetanensis Not detected Normal NOT DETECTED [facility] Comment on above: Performed By: #### C BC #### [facility] [address] [place] [address] Dr. Nini Jordan E. Coli O157 Not Applicable Normal Not Applicable [facility] Comment on above: Performed By: #### C BC #### [facility] [address] [place] [address] Dr. Nini Jordan E. histolytica Not detected Normal NOT DETECTED [facility] Comment on above: Performed By: #### C BC #### [facility] [address] [place] [address] Dr. Nini Jordan EAEC Not detected Normal NOT DETECTED [facility] Comment on above: Performed By: #### C BC #### [facility] [address] [place] [address] Dr. Nini Jordan EIEC Not detected Normal NOT DETECTED [facility] Comment on above: Performed By: #### C BC #### [facility] [address] [place] [address] Dr. Nini Jordan EPEC Not detected Normal NOT DETECTED [facility] Comment on above: Performed By: #### C BC #### [facility] [address] [place] [address] Dr. Nini Jordan ETEC Not detected Normal NOT DETECTED [facility] Comment on above: Performed By: #### C BC #### [facility] [address] [place] [address] Dr. Nini Titus Lamblifreddie Not detected Normal NOT DETECTED [facility] Comment on above: Performed By: #### C BC #### [facility] [address] [place] [address] Dr. Nini PAGE CONTROLS PASSED Normal [facility] Comment on above: Performed By: #### C BC #### [facility] [address] [place] [address] Dr. Nini PETERSEN [facility] HEADER GI PANEL BACTERIA Normal [facility] Comment on above: Performed By: #### C BC #### [facility] [address] [place] [address] Dr. Nini GOSS ECOLI GI PANEL DIARRHEAGENIC E.COLI / SHIGELLA Normal [facility] Comment on above: Performed By: #### C BC #### [facility] [address] [place] [address] Dr. Nini GOSS INFO SEE BELOW [facility] Comment on above: Result Comment: EAEC - Enteroaggregative E. Coli EPEC- Enteropathogenic E. Coli ETEC- Enterotoxigenic E. Coli lt/st STEC- Shigella-like toxin-producing E. Coli stx1/stx2 EIEC- Shigella/Enteroinvasive E. Coli Performed By: #### C BC #### [facility] [address] [place] [address] Dr. Nini GOSS PARASITES GI PANEL PARASITES Normal [facility] Comment on above: Performed By: #### C BC #### [facility] [address] [place] [address] Dr. Nini GOSS VIRUS GI PANEL VIRUSES Normal [facility] Comment on above: Performed By: #### C BC #### [facility] [address] [address] [address] Nini Jordan Norovirus GI/GII Not detected Normal NOT DETECTED [facility] Comment on above: Performed By: #### C BC #### [facility] [address] [place] [address] Dr. Nini Jordan P. Shigelloides Not detected Normal NOT DETECTED [facility] Comment on above: Performed By: #### C BC #### [facility] [address] [place] [address] Dr. Nini Jordan Rotavirus A Not detected Normal NOT DETECTED [facility] Comment on above: Performed By: #### C BC #### [facility] [address] [place] [address] Dr. Nini Jordan Salmonella Not detected Normal NOT DETECTED [facility] Comment on above: Performed By: #### C BC #### [facility] [address] [place] [address] Dr. Nini Jordan Sapovirus Not detected Normal NOT DETECTED [facility] Comment on above: Performed By: #### C BC #### [facility] [address] [place] [address] Dr. Nini Jordan STEC Not detected Normal NOT DETECTED [facility] Comment on above: Performed By: #### C BC #### [facility] [address] [address] [address] Nini Jordan Vibrio Not detected Normal NOT DETECTED [facility] Comment on above: Performed By: #### C BC #### [facility] [address] [place] [address] Dr. Nini Jordan Vibrio Cholera Not detected Normal NOT DETECTED [facility] Comment on above: Performed By: #### C BC #### [facility] [address] [place] [address] Dr. Nini Low. Enterocolitica Not detected Normal NOT DETECTED [facility] Comment on above: Performed By: #### C BC #### [facility] [address] [place] [address] Dr. Nini Jordan LACTATE/LACTIC ACIDon 2021 Lactate [Moles/Vol] 1.2 mmol/L Normal 0.7-2.0 [facility] Comment on above: Performed By: #### L ACT #### [facility] [address] [place] [address] Dr. iNni Jordan LIPASEon 02-14-2022 Lipase [Catalytic activity/Vol] 88.0 U/L Normal 23.0-300.0 [facility] Comment on above: Performed By: #### C BC #### [facility] [address] [place] [address] Dr. Nini Jordan PROF 14(COMP METB)on 022 Albumin [Mass/Vol] 3.8 g/dL Normal 3.4-5.[address] [facility] Comment on above: Performed By: #### C BC #### [facility] [address] [place] [address] Dr. Nini Jordan Albumin/Globulin [Mass ratio] 0.9 {ratio} Normal [facility] Comment on above: Performed By: #### C BC #### [facility] [address] [place] [address] Dr. Nini Jordan ALP [Catalytic activity/Vol] 106 U/L Normal 46-116 [facility] Comment on above: Performed By: #### C BC #### [facility] [address] [place] [address] Dr. Nini Jordan ALT [Catalytic activity/Vol] 52 U/L Normal 16-63 [facility] Comment on above: Performed By: #### C BC #### [facility] [address] [place] [address] Dr. Nini Jordan Anion gap [Moles/Vol] 14.6 mmol/L Normal [facility] Comment on above: Performed By: #### C BC #### [facility] [address] [address] [address] Nini Jordan AST [Catalytic activity/Vol] 28 U/L Normal 15-37 [facility] Comment on above: Performed By: #### C BC #### [facility] [address] [address] [address] Nini Jordan Bilirubin [Mass/Vol] 0.5 mg/dL Normal 0.2-1.3 [facility] Comment on above: Performed By: #### C BC #### [facility] [address] [address] [address] Nini Jordan Calcium [Mass/Vol] 9.1 mg/dL Normal 8.5-10.[address] [facility] Comment on above: Performed By: #### C BC #### [facility] [address] [place] [address] Dr. Nini Jordan Chloride [Moles/Vol] 100 mmol/L Normal 98-107 [facility] Comment on above: Performed By: #### C BC #### [facility] [address] [address] [address] Nini Jordan CO2 [Moles/Vol] 24.9 mmol/L Normal 22.0-30.0 [facility] Comment on above: Performed By: #### C BC #### [facility] [address] [place] [address] Dr. Nini Jordan Creatinine [Mass/Vol] 1.02 mg/dL Normal 0.66-1.25 [facility] Comment on above: Performed By: #### C BC #### [facility] [address] [place] [address] Dr. Nini Jordan EGFR-AF [place]LANDER >60 Normal >=60 [facility] Comment on above: Performed By: #### C BC #### [facility] [address] [place] [address] Dr. Nini Jordan EGFR-NON AF [place]ER >60 Normal >=60 [facility] Comment on above: Performed By: #### C BC #### [facility] [address] [place] [address] Dr. Nini Jordan Globulin (S) [Mass/Vol] 4.1 g/dL Normal [facility] Comment on above: Performed By: #### C BC #### [facility] [address] [place] [address] Dr. Nini Jordan Glucose [Mass/Vol] 135 mg/dL Critically high 74-106 T [facility] Comment on above: Performed By: #### C BC #### [facility] [address] [place] [address] Dr. Nini Jordan Potassium [Moles/Vol] 3.5 mmol/L Normal 3.4-5.0 [facility] Comment on above: Performed By: #### C BC #### [facility] [address] [place] [address] Dr. Nini Jordan Protein [Mass/Vol] 7.9 g/dL Normal 6.1-8.[address] [facility] Comment on above: Performed By: #### C BC #### [facility] [address] [place] [address] Dr. Nini Jordan Sodium [Moles/Vol] 136 mmol/L Critically low 137-145 [facility] Comment on above: Performed By: #### C BC #### [facility] [address] [place] [address] Dr. Nini Jordan Urea nitrogen [Mass/Vol] 17.0 mg/dL Normal 7.0-18.0 [facility] Comment on above: Performed By: #### C BC #### [facility] [address] [place] [address] Dr. Nini Jordan Urea nitrogen/Creatinine [Mass ratio] 16.7 mg/mg Normal [facility] Comment on above: Performed By: #### C BC #### [facility] [address] [place] [address] Dr. Nini Jordan PROTIMEon 02-14-2022 INR Coag (PPP) [Relative time] 0.93 {INR} Normal [facility] Comment on above: Performed By: #### P TT, PT #### [facility] [address] [place] [address] Dr. Nini Jordan INR GUIDELINES SEE BELOW Normal [facility] Comment on above: Result Comment: YURIY RED INR: 2.0 - 3.0 CONDITIONS NOT LISTED BELOW 2.5 - 3.5 FOR PROSTHETIC HEART VALVE REPLACEMENT 2.5 - 3.5 RECURRENT THROMBOSIS Performed By: #### P TT, PT #### [facility] [address] [place] [address] Dr. Nini Jordan PT Coag (PPP) [Time] 10.1 s Normal 9.0-11.6 [facility] Comment on above: Performed By: #### P TT, PT #### [facility] [address] [address] [address] Nini Jordan PTTon 02-14-2022 aPTT Coag (Bld) [Time] 24.8 s Normal 22.3-36.2 [facility] Comment on above: Performed By: #### P TT, PT #### [facility] [address] [address] [address] Nini Jordan Vital Signs Date Time Vital Sign Value Performing Clinician Facility 02-03-2025 08:28-0400 Body height 175.26 cm [facility] 02-03-2025 08:28-0400 Body mass index (BMI) [Ratio] 31.1 kg/m2 [facility] 02-03-2025 08:28-0400 Body weight 95.7 kg [facility] 02-03-2025 08:28-0400 Diastolic blood pressure 76 mm[Hg] [facility] 02-03-2025 08:28-0400 Heart rate 66 /min [facility] 02-03-2025 08:28-0400 Systolic blood pressure 118 mm[Hg] [facility] 01-14-2025 10:130500 Body height 175.26 cm [facility] 01-14-2025 10:130500 Body mass index (BMI) [Ratio] 31.8 kg/m2 [facility] 01-14-2025 10:130500 Body temperature 98.7 [degF] [facility] 01-14-2025 10:130500 Body weight 98.03 kg [facility] 01-14-2025 10:13-0500 Diastolic blood pressure 85 mm[Hg] [facility] 01-14-2025 10:13-0500 Heart rate 80 /min [facility] 01-14-2025 10:13-0500 Respiratory rate 16 /min [facility] 01-14-2025 10:13-0500 SaO2% (BldA) [Mass fraction] 96 % [facility] 01-14-2025 10:13-0500 Systolic blood pressure 130 mm[Hg] [facility] 12-10-2024 09:46-0500 Body height 172.72 cm [facility] 12-10-2024 09:46-0500 Body mass index (BMI) [Ratio] 33.1 kg/m2 [facility] 12-10-2024 09:46-0500 Body weight 98.88 kg [facility] 12-10-2024 09:46-0500 Diastolic blood pressure 98 mm[Hg] [facility] 12-10-2024 09:46-0500 Heart rate 61 /min [facility] 12-10-2024 09:46-0500 Systolic blood pressure 152 mm[Hg] [facility] 10-24-2024 09:48-0500 Body height 172.72 cm [facility] 10-24-2024 09:48-0500 Body mass index (BMI) [Ratio] 30.2 kg/m2 [facility] 10-24-2024 09:48-0500 Body weight 90.26 kg [facility] 10-24-2024 09:48-0500 Diastolic blood pressure 88 mm[Hg] [facility] 10-24-2024 09:48-0500 Heart rate 74 /min [facility] 10-24-2024 09:48-0500 Systolic blood pressure 138 mm[Hg] [facility] 09-17-2024 09:44-0500 Body height 172.72 cm [facility] 09-17-2024 09:44-0500 Body mass index (BMI) [Ratio] 30.4 kg/m2 [facility] 09-17-2024 09:44-0500 Body weight 90.71 kg [facility] 09-17-2024 09:44-0500 Diastolic blood pressure 76 mm[Hg] [facility] 09-17-2024 09:44-0500 Heart rate 60 /min [facility] 09-17-2024 09:44-0500 Systolic blood pressure 118 mm[Hg] [facility] 07-17-2024 11:20-0400 Body height 172.72 cm [facility] 07-17-2024 11:20-0400 Body mass index (BMI) [Ratio] 32.2 kg/m2 [facility] 07-17-2024 11:20-0400 Body weight 96.16 kg [facility] 07-17-2024 11:20-0400 Diastolic blood pressure 117 mm[Hg] [facility] 07-17-2024 11:20-0400 Heart rate 76 /min [facility] 07-17-2024 11:20-0400 Systolic blood pressure 158 mm[Hg] [facility] 03-07-2024 10:49-0400 Body height 172.72 cm [facility] 03-07-2024 10:49-0400 Body mass index (BMI) [Ratio] 34.9 kg/m2 [facility] 03-07-2024 10:49-0400 Body weight 104.32 kg [facility] 03-07-2024 10:49-0400 Diastolic blood pressure 87 mm[Hg] [facility] 03-07-2024 10:49-0400 Heart rate 84 /min [facility] 03-07-2024 10:49-0400 Systolic blood pressure 131 mm[Hg] [facility] 02-16-2024 11:53-0400 Body height 172.72 cm [facility] 02-16-2024 11:53-0400 Body mass index (BMI) [Ratio] 35.4 kg/m2 [facility] 02-16-2024 11:53-0400 Body weight 105.74 kg [facility] 02-16-2024 11:53-0400 Diastolic blood pressure 85 mm[Hg] [facility] 02-16-2024 11:53-0400 Heart rate 69 /min [facility] 02-16-2024 11:53-0400 Systolic blood pressure 121 mm[Hg] [facility] 01-29-2024 15:19-0400 Body height 172.72 cm [facility] 01-29-2024 15:19-0400 Body mass index (BMI) [Ratio] 35.2 kg/m2 [facility] 01-29-2024 15:19-0400 Body weight 105.23 kg [facility] 01-29-2024 15:19-0400 Diastolic blood pressure 75 mm[Hg] [facility] 01-29-2024 15:19-0400 Heart rate 76 /min [facility] 01-29-2024 15:19-0400 Systolic blood pressure 115 mm[Hg] [facility] 01-12-2024 11:22-0500 Body height 172.72 cm [facility] 01-12-2024 11:22-0500 Body mass index (BMI) [Ratio] 34.3 kg/m2 [facility] 01-12-2024 11:22-0500 Body weight 102.51 kg [facility] 01-12-2024 11:22-0500 Diastolic blood pressure 82 mm[Hg] [facility] 01-12-2024 11:22-0500 Heart rate 77 /min [facility] 01-12-2024 11:22-0500 Systolic blood pressure 130 mm[Hg] [facility] 12-25-2023 11:00-0500 Body height 172.72 cm Bernice Ewing Other [employer] Other 12-25-2023 11:00-0500 Body mass index (BMI) [Ratio] 34.15 kg/m2 Bernice Ewing Other [employer] Other 12-25-2023 11:00-0500 Body weight 101.88 kg Bernice Ewing Other [employer] Other 12-25-2023 11:00-0500 Diastolic blood pressure 88 mm[Hg] Bernice Ewing Other [employer] Other 12-25-2023 11:00-0500 Systolic blood pressure 147 mm[Hg] Bernice Ewing Other [employer] Other 12-18-2023 14:00-0500 Body height 172.72 cm Bernice Ewing Other [employer] Other 12-18-2023 14:00-0500 Body mass index (BMI) [Ratio] 34.06 kg/m2 Bernice Ewing Other [employer] Other 12-18-2023 14:00-0500 Body weight 101.61 kg Bernice Ewing Other [employer] Other 12-18-2023 14:00-0500 Diastolic blood pressure 96 mm[Hg] Bernice Ewing Other [employer] Other 12-18-2023 14:00-0500 Systolic blood pressure 152 mm[Hg] Bernice Ewing Other [employer] Other 09-14-2023 11:00-0400 Body height 172.72 cm Bernice Ewing Other [employer] Other 09-14-2023 11:00-0400 Body mass index (BMI) [Ratio] 34.57 kg/m2 Bernice Ewing Other [employer] Other 09-14-2023 11:00-0400 Body weight 103.15 kg Bernice Ewing Other [employer] Other 09-14-2023 11:00-0400 Diastolic blood pressure 82 mm[Hg] Bernice Ewing Other [employer] Other 09-14-2023 11:00-0400 Systolic blood pressure 121 mm[Hg] Bernice Ewing Other [employer] Other 07-20-2023 13:30-0400 Body height 172.72 cm Rufus Leung Other [employer] Other 07-20-2023 13:30-0400 Body mass index (BMI) [Ratio] 33.45 kg/m2 Rufus Leung Other [employer] Other 07-20-2023 13:30-0400 Body weight 99.79 kg Rufus Leung Other [employer] Other 07-10-2023 10:15-0400 Body height 172.72 cm Bernice Ewing Other [employer] Other 07-10-2023 10:15-0400 Body mass index (BMI) [Ratio] 33.3 kg/m2 Bernice Ewing Other [employer] Other 07-10-2023 10:15-0400 Body weight 99.34 kg Bernice Ewing Other [employer] Other 07-10-2023 10:15-0400 Diastolic blood pressure 95 mm[Hg] Bernice Ewing Other [employer] Other 07-10-2023 10:15-0400 Systolic blood pressure 147 mm[Hg] Bernice Ewing Other [employer] Other 03-14-2023 16:15-0400 Body height 172.72 cm Bernice Ewing Other [employer] Other 03-14-2023 16:15-0400 Body mass index (BMI) [Ratio] 34.82 kg/m2 Bernice Ewing Other [employer] Other 03-14-2023 16:15-0400 Body weight 103.87 kg Bernice Ewing Other [employer] Other 03-14-2023 16:15-0400 Diastolic blood pressure 74 mm[Hg] Bernice Ewing Other [employer] Other 03-14-2023 16:15-0400 SaO2% (BldA) [Mass fraction] 98 % Bernice Ewing Other [employer] Other 03-14-2023 16:15-0400 Systolic blood pressure 132 mm[Hg] Bernice Ewing Other [employer] Other 12-02-2022 11:00-0500 Body height 172.72 cm Bernice Ewing Other [employer] Other 12-02-2022 11:00-0500 Body mass index (BMI) [Ratio] 36.64 kg/m2 Bernice Ewing Other [employer] Other 12-02-2022 11:00-0500 Body weight 109.32 kg Bernice Ewing Other [employer] Other 12-02-2022 11:00-0500 Diastolic blood pressure 72 mm[Hg] Bernice Ewing Other [employer] Other 12-02-2022 11:00-0500 SaO2% (BldA) [Mass fraction] 97 % Bernice Ewing Other [employer] Other 12-02-2022 11:00-0500 Systolic blood pressure 116 mm[Hg] Bernice Kaylin Other [facility] [employer] Other Encounters Encounter Date Encounter Type Care Provider Facility Start: 02-03-2025 Patient encounter status [facility] Start: 02-03-2025 End: 02-03-2025 ambulatory [facility] Work Phone: Start: 02-03-2025 End: 02-03-2025 Encounter for general adult medical examination without abnormal findings [facility] Start: 02-03-2025 End: 02-03-2025 Patient encounter procedure [facility] Work Phone: Start: 01-14-2025 End: 01-14-2025 ambulatory [facility] Work Phone: Start: 01-14-2025 End: 01-14-2025 Patient encounter procedure [facility] Work Phone: Start: 12-10-2024 End: 12-10-2024 ambulatory [facility] Work Phone: Start: 12-10-2024 End: 12-10-2024 Patient encounter procedure [facility] Work Phone: Start: 10-30-2024 Non-patient / Non-visit Maria [facility]ham [facility] Physician [facility] Work Phone: Start: 10-24-2024 End: 10-24-2024 Patient encounter procedure [facility] Phys[facility] Work Phone: Start: 09-17-2024 End: 09-17-2024 ambulatory [facility] Work Phone: Start: 09-17-2024 End: 09-17-2024 Patient encounter procedure [facility] Physician [facility] Work Phone: Start: 09-16-2024 Non-patient / Non-visit Maria Parham Health Physician [facility] Work Phone: Start: 09-15-2024 Non-patient / Non-visit Maria Parham Health Physician [facility] Work Phone: Start: 07-17-2024 End: 07-17-2024 ambulatory [facility] Work Phone: Start: 07-17-2024 End: 07-17-2024 Patient encounter procedure Maria Parham Health Physician [facility] Work Phone: Start: 03-07-2024 End: 03-07-2024 ambulatory [facility] Work Phone: Start: 03-07-2024 End: 03-07-2024 Patient encounter procedure [facility] Physician [facility] Work Phone: Start: 02-16-2024 End: 02-16-2024 ambulatory [facility] Work Phone: Start: 02-16-2024 End: 02-16-2024 Patient encounter procedure [facility]ician [facility] Work Phone: Start: 01-29-2024 End: 01-29-2024 ambulatory [facility] Work Phone: Start: 01-29-2024 End: 01-29-2024 Patient encounter procedure [facility]ician [facility] Work Phone: Start: 01-25-2024 Non-patient / Non-visit [facility] Work Phone: Start: 01-12-2024 End: 01-12-2024 Patient encounter procedure Maria [facility] Physician [facility] Work Phone: Start: 12-25-2023 End: 12-25-2023 ambulatory Bern[address] Ewing Other [facility] [employer] Other Start: 12-25-2023 Office outpatient vi sit 15 minutes Bernice Ewing [facility] Start: 12-18-2023 End: 12-18-2023 ambulatory Bernice Ewing Other [employer] Other Start: 12-18-2023 Office outpatient vi sit 15 minutes Bernice Ewing [facility] Start: 12-18-2023 Telephone encounter Bernice Ewing [facility] Start: 09-14-2023 End: 09-14-2023 ambulatory Bernice Ewing Other [employer] Other Start: 09-14-2023 Office outpatient vi sit 15 minutes Bernice Ewing [facility] Start: 07-25-2023 End: 07-25-2023 ambulatory Rufus Leung Other [employer] Other Start: 07-25-2023 Telephone encounter Rufus Leung [facility] Start: 07-24-2023 End: 07-24-2023 ambulatory Jimmy House Facility:[facility] Start: 07-24-2023 End: 07-24-2023 ambulatory DO Jimmy House Work Phone: [facility] Work Phone: Start: 07-24-2023 End: 07-24-2023 Patient encounter procedure DO Jimmy House Work Phone: [facility] [place] Work Phone: Start: 07-20-2023 End: 07-20-2023 ambulatory Jimmy House Facility:[facility] Start: 07-20-2023 Office outpatient ne w 45 minutes Rufus Leung [facility] Start: 07-20-2023 End: 07-20-2023 ambulatory DO Jimmy House Work Phone: [facility] Work Phone: Start: 07-20-2023 End: 07-20-2023 Patient encounter procedure DO Jimmy House Work Phone: [facility] Start: 07-10-2023 End: 07-10-2023 ambulatory Bernice Ewing Other [employer] Other Start: 07-10-2023 Office outpatient vi sit 15 minutes Bernice Ewing [facility] Start: 07-07-2023 End: 07-07-2023 ambulatory Bernice Ewing Other [employer] Other Start: 07-07-2023 Telephone encounter Bernice Ewing [facility] Start: 05-01-2023 End: 05-01-2023 ambulatory Bernice Ewing Other [employer] Other Start: 05-01-2023 Telephone encounter Bernice Ewing [facility] Start: 03-14-2023 End: 03-14-2023 ambulatory Bernice Ewing Other [employer] Other Start: 03-14-2023 Office outpatient vi sit 15 minutes Bernice Ewing [facility] Start: 01-27-2023 End: 01-27-2023 ambulatory Bernice Ewing Other [employer] Other Start: 01-27-2023 Telephone encounter Bernice Ewing [facility] Start: 12-08-2022 End: 12-08-2022 ambulatory Bernice Ewing Other [employer] Other Start: 12-08-2022 Telephone encounter Bernice Ewing [facility] Start: 12-02-2022 End: 12-02-2022 ambulatory Bernice Ewing Other [employer] Other Start: 12-02-2022 Encounter for genera l adult medical examination without abnormal findings Bernice Ewing [facility] Start: 12-02-2022 Office outpatient vi sit 15 minutes Bernice Ewing [facility] Start: 10-11-2022 End: 10-12-[address] BERNICE EWING Facility:[facility] Start: 09-13-2022 End: 10-20-[address] BERNICE EWING Facility:[facility] Start: 08-30-[address] BERNICE EWING Facil ity:[facility] Start: 08-05-[address] BERNICE EWING Facil ity:[facility] Start: 08-03-2022 End: 08-04-2022 ambulatory Layne Gudimella Facility:[facility] Start: 08-03-2022 End: 08-03-2022 Patient encounter procedure Layne Gudimella [facility] Start: 07-30-2022 Encounter for genera l adult medical examination without abnormal findings DR BERNICE EWING [facility] Start: 07-28-2022 ambulatory Layne Gudimella Facili ty:[facility] Start: 07-25-2022 End: 07-26-[address] BERNICE EWING Facility:[facility] Start: 07-25-2022 End: 07-26-2022 Encounter for general adult medical examination without abnormal findings DR BERNICE EWING Facility:[facility] Start: 07-21-2022 End: 07-21-[address] EDNA ORTEGA Facility:[facility] Start: 02-14-2022 End: 02-14-2022 ambulatory KATINA CAT Facility:[facility] Start: 01-05-2022 ambulatory SARAI HINES Facilit y:[facility] Start: 12-30-2021 End: 12-31-[address] BERNICE EWING Facility:[facility] Procedures Date Procedure Procedure Detail Performing Clinician Start: 07-24-2023 MRI of right elbow DO C [employer] Work Phone: Start: 07-20-2023 Plain X-ray of right elbow DO [employer] Work Phone: Plan of Treatment Date Care Activity Detail Author Comprehensive metabo lic 2000 panel - Serum or Plasma [facility] enter XR Chest 2 Views [facility] XR Sternum GE 2 Views [facility] Immunizations Immunization Date Immunization Notes Care Provider Fa cili 09-02-2021 influenza virus vaccine, split virus (incl. purified surface antigen) Bernice Ewing Other [facility] [employer] Other 09-02-2021 influenza virus vaccine, unspecified formulation Layne Gudimella [facility] 03-25-2021 SARS-CoV-2 (COVID-19 ) mRNA BNT-162b2 vax Layne Gudimella [facility] 03-04-2021 SARS-CoV-2 (COVID-19 ) mRNA BNT-162b2 vax Layne Gudimella [facility] 08-23-2020 influenza virus vaccine, split virus (incl. purified surface antigen) Bernice Ewing Other [employer] Other 08-23-2020 influenza virus vaccine, unspecified formulation Layne Gudimella [facility] Payers Date Payer Category Payer Self-pay 2011 Private Health Insurance [id number] 1976 Unknown [id number] 1976 Unknown [id number] 1976 Unknown [id number] 1976 Unknown [id number] [id number] 1976 Unknown [id number] [id number] 1976 Unknown [id number] [id number] 1976 Unknown [id number] [id number] 1976 Unknown [id number] [id number] 1976 Unknown [id number] .[id number] 1976 Unknown [id number] [id number] 1959 Unknown [id number] Private Health Insurance [employer] [id number] Private Health Insurance [employer] [id number] Unknown [id number] Unknown [id number] Social History Date Type Detail Facility Tobacco smoking status No Smoking Status Entered [facility] Sex Assigned At Male [facility] Start: 1975 Sex Assigned At Male [facility] Start: 09-14-2023 End: 09-14-2023 Tobacco smoking status NHIS Tobacco smoking consumption unknown (finding) [facility] Start: 12-10-2024 End: 02-03-2025 Sex Male (finding) [facility] Clinical Notes 12-30-2021 to 12-10-2024 Note Date & Type Note Facility 12-10-2024 Evaluation note Diagnosis Onset Date Resolution Essential hypertension acute Ja nuary 2024 9:30am Hordeolum externum right lower eyelid acute December 10, 2024 9:30am Viral URI with cough noneactive Murtaza h 2024 10:11am Dyslipidemia acute February 03, 2025 8:25am Essential hypertension acute [facility] 2024 8:25am Neuropathy of right lower extremity acute February 03, 2025 8:25am Wellness examination acute [facility] 2024 8:25am [facility] Work Phone: 1(452) 588-411112-12-2024 Evaluation note* Diagnosis Onset Date Resolution Status Admit Date Class 1 obesity with body ma ss index (BMI) of 30.0 to 30.9 in adult acute October 24, 2 024 9:46am Gastroenteritis acute October 24, 2024 9:46am Hordeolum of left lower eyelid acute October 24, 2024 9:46am Essential hypertension acute Ja nuary 2024 9:30am Hordeolum externum right low er eyelid acute December 10 9:30am [facility] Work Phone: 1(633) 229-142911-05-2024 Evaluation note* Diagnosis Onset Date Resolution Status Admit Date Essential hypertension acute No vember 2023 9:41am Anxiety, generalized deleted Nove mber 2023 9:41am Class 1 obesity with body ma ss index (BMI) of 30.0 to 30.9 in adult acute October 24, 024 9:46am Gastroenteritis acute October 24, 2024 9:46am Hordeolum of left lower eyelid acute October 24, 2024 9:46am [facility] Work Phone: 1(278) 426-707902-12-2024 Evaluation note* Encounter Date Diagnosis Assessment Notes Treatment Notes Treatment Clinical Notes Dec, Closed fracture of sternum with routine healing, unspecified portion of sternum, subsequent encounter (ICD-10 - S22.20XD) Reviewed OARRs report Recheck Xray today. refilled pain med. call w xray results. [employer] Other 02-05-2024 Evaluation note* Encounter Date Diagnosis Assessment Notes Treatment Notes Treatment Clinical Notes Dec, Closed fracture of sternum, unspecified portion of sternum, initial encounter (ICD-10 - S22.20XA) Followup in 1 week - discussed off work and note provided. [employer] Other 11-02-2023 Evaluation note* Encounter Date Diagnosis [...] left foot (ICD-10 - M79.672) as above [employer] Other 09-07-2023 Evaluation note* Encounter Date Diagnosis [...] ongoing plan once MRI results are obtained. [employer] Other 08-28-2023 Evaluation note* Encounter Date Diagnosis Assessment Notes Treatment Notes Treatment Clinical Notes Jun, Tear of right biceps muscle, subsequent encounter (ICD-10 - S46.211D) Pt agrees to referral to ortho for possible bicep tendon repair. Jun, Anxiety, generalized (ICD-10 - F41.1) Symptoms have worsened. Requests an increased amount of prn med. [employer] Other 05-02-2023 Evaluation note* Encounter Date Diagnosis Assessment Notes Treatment Notes Treatment Clinical Notes March, Strain of right elbow and forearm, initial encounter (ICD-10 - S56.911A) Improving, per pt. Consider PT and NSAIDs if pain does not improve further. [employer] Other 01-20-2023 Evaluation note* Encounter Date Diagnosis Assessment Notes Treatment Notes Treatment Clinical Notes Nov, Peripheral neuritis of both feet (ICD-10 - G57.93) Discussed problem at length labs will be ordered under wellness code. Patient states he gets labs once a year under wellness code. Nov, Wellness examination (ICD-10 - Z00.00) [employer] Other 11-30-2022 NotePROCEDURE: XR ANKLE LT MIN [...] Electronically authenticated by: WILLIAM GAMING Date: 2022-10-12 08:47[facility]11-30-2022 NotePROCEDURE: XR ANKLE LT MIN 3 [...] Electronically authenticated by: WILLIAM GAMING Date: 2022-10-12 08:47[facility]09-08-2022 NotePROCEDURE: XR ANKLE LT MIN 3 [...] Electronically authenticated by: WILLIAM GAMING Date: 2022-07-21 11:47[facility]02-17-2022 NotePROCEDURE: XR FOOT RT MIN 3 [...] Electronically authenticated by: WILLIAM GAMING Date: 2021-12-30 10:04[facility] No data available for this section [facility] [place] Evaluation noteNo InformationNort [facility] Other Evaluation noteNo assessment information available [facility] Work Phone: Evaluation note* Diagnosis Onset Date Resolution Status Fracture, sternum closed acu te [id number] [facility] Work Phone: Evaluation note* Diagnosis Onset Date Resolution Status Fracture, sternum closed acu te [id number] acute [id number] acute [facility] Work Phone: Evaluation note* Diagnosis Onset Date Resolution Status Anxiety, generalized acute Essential hypertension [facility] Work Phone: History general Narrative - [...] EYELID 2013 Hospitalization History SEE SURGICAL HX [employer] Other Hospital Discharge instructions No data available for this section [facility] Progress note No data available for this section [facility] Summary Purpose Family History Relationship Condition Age [...] Date/ Time Advance Directives No July 11:35am Advance Directive Response Recorded Date/ Time Advance Directives No July 10:35am Reason for Referral Reason *Waiting for appt [facility] ortho Diagnosis 1 Tear of right biceps muscle, subsequent encounter (S46.211D) Referral Organization [facility] Zachary celaya Referring Provider First Name Bernice Referring Provider Last Name Kaylin Referring Provider Specialty Family [facility] Referred Organization [facility] Referred Provider Rufus Leung Referred Address [address] [place],[address] Referred Provider Specialty Orthopaedic Surgery Referral Priority Routine General Notes Leeanne Crockett 11:22:47 AM >received today, sent P2P Chief Complaint and Reason for Visit Chief Complaint S46.211A s46.211a Chief Complaint Sternum Check Up Amb Documentation review results Reason for Visit Fracture, sternum cl osed [id number] Chief Complaint Sternum Check Up Amb Documentation review results Ribs Reason for Visit Fracture, sternum cl osed [id number] Chief Complaint Sternum Check Up Amb Documentation review results Ribs return to work Reason for Visit Fracture, sternum cl osed [id number] Chief Complaint FMLA paperwork discu ssion Chief Complaint FMLA paperwork discu ssion BP Concerns/ER f/u Reason for Visit Anxiety, generalized Essential hypertension Chief Complaint Admit Date BP Concerns/ER f/u September 17, 2024 9 :41am Stomach Pain October 24, 2024 9:46am CC Adult Risk Stratification October 302023 2:55pm right eye swollen, right arm swollen Jayme [facility] 2024 9:30am Reason for Visit Admit Date Essential hypertension September 17 9:41am Anxiety, generalized September 17, 2024 9:41am Class 1 obesity with body ma ss index (BMI) of 30.0 to 30.9 in adult October 24, 2024 9:46am Gastroenteritis October 24, 2024 9:46am Hordeolum of left lower eyelid October 24, 2024 9:46am Chief Complaint Admit Date Stomach Pain October 24, 2024 9:46am CC Adult Risk Stratification October 302023 2:55pm right eye swollen, right arm swollen Nov 2024 9:30am Chest congestion January 14, 2025 10:1 1am Reason for Visit Admit Date Class 1 obesity with body ma ss index (BMI) of 30.0 to 30.9 in adult October 24, 2024 9:46am Gastroenteritis October 24, 2024 9:46am Hordeolum of left lower eyelid October 24, 2024 9:46am Essential hypertension December 10 9:30am Hordeolum externum right lower eyelid Ja nuary 2024 9:30am Chief Complaint Admit Date right eye swollen, right arm swollen Jayme [facility] 2024 9:30am Chest congestion January 14, 2025 10:1 1am wellness February 03, 2025 8:2 5am Reason for Visit Admit Date Essential hypertension December 10 9:30am Hordeolum externum right lower eyelid Ja tequilaary 2024 9:30am Viral URI with cough January 14, 2025 10: 11am Dyslipidemia February 03, 2025 8:2 5am Essential hypertension February 03, 2025 8:25am Neuropathy of right lower extremity Murtaza yuliana 2024 8:25am Wellness examination February 03, 2025 8: 25am Additional Source Comments (unrecognized sect ion and content) No Status Records FoundNo Status Records FoundNo Status Records Found INFORMATION SOURCE (unrecogn ized section and content) DATE CREATED AUTHOR 08/12/2022 Connors Aki [facility] DATE CREATED AUTHOR AUTHOR'S ORGANIZ ATION 11/11/2022 [facility] DATE CREATED AUTHOR AUTHOR'S ORGANIZ ATION 08/02/2023 [facility] Care Team (unrecognized sect ion and content) Team Status: Active Member Role Status Dates Bernice Ewing MD Primary Care Provider Active Team Status: Inactive Member Role Status Dates Bernice Ewing MD Primary Care Provide r, Attending Provider Active Start: October 24, 2024 End: October 24, 2024 Team Status: Active Member Role Status Dates Bernice Ewing MD Primary Care Provide r, Attending Provider Active Start: October 30, 2024 Team Status: Inactive Member Role Status Dates Bernice Ewing MD Primary Care Provide r, Attending Provider Active Start: December 10, 2024 End: December 10, 2024 Team Status: Inactive Member Role Status Dates Bernice Ewing MD Primary Care Provider Active Start: January 14, 2025 End: January 14, 2025 Ada Wilkins APRN Attending Provider Active Start: January 14, 2025 End: January 14, 2025 Team Status: Active Member Role Status Dates Bernice Ewing MD Primary Care Provider Active Start: September 15, 2024 Madison Mcleod DO Attending Provider Active Start: September 15, 2024 Team Status: Active Member Role Status Dates Bernice Ewing MD Primary Care Provider Active Start: September 16, 2024 Martin Sharma DO Attending Provider Active Sta rt: September 16, 2024 Team Status: Inactive Member Role Status Dates Bernice Ewing MD Primary Care Provide r, Attending Provider Active Start: September 17, 2024 End: September 17, 2024 Team Status: Active Member Role Status Dates Jimmy Spears , Primary Care Provider Active Team Status: Inactive Member Role Status Dates Jimmy Spears , Primary Care Provider Active Rufus Leung DO Attending Provider Active Team Status: Inactive Member Role [...] July 17, 2024 End: July 17, 2024 Team Status: Inactive Member Role Status Devin Ewing MD Primary Care Provide r, Attending Provider Active Start: February 03, 2025 End: February 03, 2025 REASON FOR VISIT (unrecogniz ed section and [...] BE BASED ON THE PRIMARY CLINICAL RECORDS. [employer] provides no warranty or guarantee of the accuracy or completeness of information in this document.
[2025-02-03 11:22] LABS: Creatinine Urine Random 111.09 mg/dL (20.00-300.00); Microalbumin Urine Random <1.3 mg/dL (<=30.0)
[2025-02-03 11:23] LABS: Basophils Percent Auto 0.1 % (0.2-2.0); Eosinophils Percent Auto 0.4 % (0.9-7.0); Hematocrit 42.5 % (42.0-54.0); Hemoglobin 14.1 g/dL (14.0-18.0); Immature Granulocytes Abs Auto 0.01 10^3/uL (0.00-0.03); Immature Granulocytes Pct Auto 0.1 % (0.0-0.5); Lymphocytes Absolute Auto 2.2 10^3/uL (1.2-3.8); Lymphocytes Percent Auto 31.7 % (20.5-60.0); Mean Corpuscular HGB Conc 33.2 g/dL (29.9-35.2); Mean Corpuscular Hemoglobin 31.2 pg (25.9-34.0); Mean Platelet Volume 11.2 fL (9.5-13.5); Monocytes Absolute Auto 0.7 10^3/uL (0.3-0.8); Monocytes Percent Auto 9.6 % (1.7-12.0); Neutrophils Percent Auto 58.1 % (43.0-75.0); Platelet Count 157 10^3/uL (150-450); Red Blood Count 4.52 10^6/uL (4.70-6.10); Red Cell Distribution Width 12.9 % (11.0-15.0); White Blood Count 6.9 10^3/uL (4.0-11.0)
[2025-02-03 11:48] LABS: Alanine Aminotransferase 20 U/L (16-63); Albumin Globulin Ratio 1.1; Albumin Level 3.9 g/dL (3.4-5.0); Alkaline Phosphatase 68 U/L (46-116); Anion Gap 13.2; Aspartate Amino Transferase 22 U/L (15-37); BUN Creatinine Ratio 18.6; Bilirubin Total 0.5 mg/dL (0.2-1.0); Calcium 8.8 mg/dL (8.5-10.1); Carbon Dioxide 26.1 mmol/L (21.0-32.0); Chloride 102 mmol/L (98-107); Chol HDL Ratio 3.2; Cholesterol 220 mg/dL (<=200); Estimated GFR (African America >60 (>=60 mL/min/1.73m^2); Estimated GFR (Non-African Ame >60 (>=60 mL/min/1.73m^2); Globulin 3.6 g/dL; Glucose 98 mg/dL (74-106); HDL Cholesterol 69 mg/dL (40-60); Potassium 4.3 mmol/L (3.5-5.1); Sodium 137 mmol/L (136-145); TSH W/ REFLEX FT4 1.556 uIU/mL (0.358-3.740); Total Protein 7.5 g/dL (6.4-8.2); Triglycerides 56 mg/dL (<=150); VLDL CHOLESTEROL 11.2 mg/dL
[2025-02-04 02:15] LABS: Vitamin B12 551 pg/mL (232-1245)
== END 2025-02-03 10:45 | disposition home or self-care (01) ==
LOC: LAB 10:46
PROVIDERS: PCP Family Medicine; Visit Provider Family Medicine
DX: Z00.00 Encounter for general adult medical examination without abnormal findings (principal); G57.91 Unspecified mononeuropathy of right lower limb; I10 Essential (primary) hypertension; E78.5 Hyperlipidemia, unspecified
CPT/HCPCS: 36415; 80053; 80061; 82043; 82570; 82607; 82728; 82746; 84443; 85025

== ENCOUNTER 2025-03-10 09:36 | Emergency (ER) | payer BC, SELFPAY ==
[2025-03-10 09:42] VITALS: BP 158/100; PULSE 59; TEMP 36.8; O2SAT 100; BMI 30.8
[2025-03-10] MEDS: KETOROLAC TROMETHAMINE 30 MG/ML VIAL IM (10:44)
--- NOTE | 2025-03-10 11:29 | ED.LOWEXI1 ---
HPI HPI - Extremity Injury (Lower) General Chief Complaint: Extremity Injury, Lower Stated Complaint: LOWER EXTREMITY INJURY Time Seen by Provider: 03/10/25 10:01 Source: patient Mode of arrival: walk-in Limitations: no limitations History of Present Illness HPI Narrative: The patient is a 50-year-old male came to the ER with a right knee injury that he sustained yesterday, he was stepping off his house steps when apparently there was a hole in the floor and he thinks he hurt his knee after falling into it, patient mentioned that after that he has not been able to put a lot of weight in his right knee or climb anything because of the pain in the right knee, patient denies any fall or any other concerns He does have a history of anterior cruciate ligament in the left knee Related Data Home Medications ?Medication ?Instructions ?Recorded ?Confirmed diazepam 10 mg tablet 10 mg PO BID PRN anxiety 09/15/24 09/15/24 metoprolol succinate 50 mg 50 mg PO DAILY 09/15/24 09/15/24 tablet,extended release 24 hr omeprazole 20 mg capsule,delayed 20 mg PO DAILY 09/15/24 09/15/24 release Previous Rx's ?Medication ?Instructions ?Recorded methocarbamol 750 mg tablet 750 mg PO Q6H PRN pain #30 tabs 12/17/23 nabumetone 750 mg tablet 750 mg PO BID PRN pain #14 tabs 12/17/23 diclofenac sodium 75 mg 75 mg PO BID PRN pain #20 tabs 03/10/25 tablet,delayed release Allergies Allergy/AdvReac Type Severity Reaction Status Date / Time No Known Drug Allergies Allergy Verified 03/10/25 09:42 Opioid HPI Opioid Management Most Recent Pain and Opioid Data: Last Pain Scale 8 03/10/25 10:44 03/10/25 Last JAN Pain Assessment 03/10/25 10:44 Review of Systems ROS Status of ROS 10 or more systems reviewed and unremarkable except as noted in history and below PFSH PFSH Social History Little interest or pleasure in doing things: not at all Feeling down, depressed, or hopeless: not at all Exam Narrative Exam Narrative: Nurses notes and vital signs reviewed and patient is not hypoxic. General: Well-appearing and in no apparent distress. Skin: Warm, dry, no pallor noted. No rash. Head: Normocephalic, atraumatic. Neck: Supple, non-tender. Musculoskeletal: normal ROM, no calf or popliteal tenderness, mild edema of the right knee and tenderness palpation of the prepatellar area but there is no ecchymosis or redness or any open wounds and the patient have a full range of movement preserved except for flexion there is some pain that limiting full flexion, the patient have the anterior and posterior drawer sign negative Neurological: A&O x4. No cranial nerve dysfunction observed. No truncal ataxia. Moves all extremities. Sensation intact. Psychiatric: Cooperative and interactive. Normal mood and affect. Constitutional Vital Signs, click to edit/add: Last Vital Signs Temp 98.3 F 03/10/25 09:42 Pulse 59 L 03/10/25 09:42 Resp 16 03/10/25 09:42 BP 158/100 H 03/10/25 09:42 Pulse Ox 100 03/10/25 09:42 O2 Del Method Room Air 03/10/25 09:42 Course Vital Signs Vital signs: Vital Signs Temperature 98.3 F 03/10/25 09:42 Pulse Rate 59 L 03/10/25 09:42 Respiratory Rate 16 03/10/25 09:42 Blood Pressure 158/100 H 03/10/25 09:42 Pulse Oximetry 100 03/10/25 09:42 Oxygen Delivery Method Room Air 03/10/25 09:42 Temperature 98.3 F 03/10/25 09:42 Pulse Rate 59 L 03/10/25 09:42 Respiratory Rate 16 03/10/25 09:42 Blood Pressure 158/100 H 03/10/25 09:42 Pulse Oximetry 100 03/10/25 09:42 Oxygen Delivery Method Room Air 03/10/25 09:42 MDM - Extremity Injury (Lower) MDM Narrative Medical decision making narrative: X-ray of the right knee shows no acute significant pathology the patient has a knee immobilizer provided in addition to he already have crutches at home He started on Toradol in the ER discharged home with Andrzej and referred to orthopedic as outpatient The patient is to follow up with primary care physician in next 2-3 days or to return to the emergency department should any of the signs or symptoms worsen or new symptoms develop. The patient agrees with the following Diagnosis and Treatment plan and the patient will be discharged home. Discharge Plan Discharge Chief Complaint: Extremity Injury, Lower Clinical Impression: Injury of knee, ligament Patient Disposition: Home, Self-Care Time of Disposition Decision: 10:36 Condition: Good Prescriptions / Home Meds: New diclofenac sodium 75 mg tablet,delayed release (DR/EC) 75 mg PO BID PRN (Reason: pain) Qty: 20 0RF Held nabumetone 750 mg tablet 750 mg PO BID PRN (Reason: pain) Qty: 14 0RF Hold Instructions: Resume on 03/21/25. resume as needed after Voltaren use No Action methocarbamol 750 mg tablet 750 mg PO Q6H PRN (Reason: pain) Qty: 30 0RF diazepam 10 mg tablet 10 mg PO BID PRN (Reason: anxiety) metoprolol succinate 50 mg tablet extended release 24 hr 50 mg PO DAILY omeprazole 20 mg capsule,delayed release(DR/EC) 20 mg PO DAILY Print Language: [place] Instructions: Knee Sprain (DC), Crutch Instructions (ED) Referrals: Bernice Sahu MD [Primary Care Provider] - 1 week Luis F Trejo MD [Physician] - 1 week
== END 2025-03-10 11:35 | disposition home or self-care (01) ==
PROVIDERS: Emergency Provider Emergency Medicine; PCP Family Medicine
DX: S89.81XA Other specified injuries of right lower leg, initial encounter (principal); X58.XXXA Exposure to other specified factors, initial encounter
CPT/HCPCS: 73562; 96372; 99284; J1885

== ENCOUNTER 2025-05-09 19:38 | Emergency (ER) | payer BC, SELFPAY ==
--- OUTSIDE RECORDS SUMMARY | 2025-05-09 19:44 | XMS_ITS | CCD ---
Author Organization [facility] Care Team Providers Care Catering Service Manager Name Role Phone Layne Ramírez Attending Unavailable Layne Ramírez Primary Care Physician [phone] KAYLIN, DR BERNICE Pride Admitting Unavailable ZIEBMARY, [...] EWING, DR BERNICE Pride Primary Care Unavailable GEORGEECK, DR EDNA Gordon Consulting Unavailabl e REINECK, DR EDNA Gordon Admitting Unavailabl e ZIEBER, DR WILLIAM Meléndez Consulting Unavailable KATINA CAT Admitting Unavailable KAYLIN, DR BERNICE Pride Primary Care Unavailable [place], DR EDUARD Norman Consulting Unavailable KATINA CAT Attending Unavailable ARSALAN ROCKWELL Consulting Unavailable EWING, DR BERNICE Pride Primary Care Unavailable DONNY, SARAI Admitting Unavailable DONNY, SARAI Attending Unavailable ZIEBMARY, DR WILLIAM Meléndez Consulting Unavailable DONNY, SARAI Consulting Unavailable EWING, DR BERNICE Pride Primary Care Unavailable EWING, DR BERNICE Pride Admitting Unavailable EWING, DR BERNICE Pride Attending Unavailable EWING, DR BERNICE rPide Consulting Unavailable Bernice Ewing Unavailable DO Jimmy Spears Primary Care Provider [phone] DO Rufus Leung Attending Provider Rufus Leung Unavailable Jimmy Spears Primary Care Unavailable Rufus Leung Admitting Unavailable Rufus Leung Attending Unavailable Jimmy Spears Primary Care Unavailable Rufus Leung Admitting Unavailable Rufus Leung Attending Unavailable Bernice Ewing MD Primary Care Provider Jimena Chavira CMA Attending Provider UnavailBernice Mcdonnell MD Attending Provider Allergies Allergy Classification Reported Allergen(s) Allergy Type Date of Onset Reaction(s) Facility (9 sources) traMADol Drug Allergy 8 Comment:pt states he is not allergic to tramadol [employer] Other Medications Current Medications Medication Drug Class(es) [...] for Active amLODIPine 10 mg oral tablet (19 sources) Dihydropyridine Calcium Channel Dominga Start: 12-10-2024 End: 03-03-2025 take 1 tablet by mouth once daily Amlodipine 10 mg tablet Active 10 MG PO Daily March 03, 2025 4:35pm Complies with drug therapy Start: 09-17-2024 End: 12-10-2024 take 1 tablet by mouth once daily Amlodipine 5 mg tablet Discontinued 5 MG PO Daily September 17, 2024 11:01am September 25, 2024 10:04am dicyclomine hydrochloride 20 mg oral tablet (3 sources) Anticholinergic take 1 tablet by mouth every eight hours Dicyclomine HCl 20 MG 1 tablet Orally Three times a day Active hydrALAZINE hydrochloride 25 mg oral tablet (1 source) Arteriolar Vasodilator Start: 05-07-20 take 1 tablet by mouth three times daily Hydralazine 25 mg tablet Active 25 MG PO Three times daily May 07, 2025 12:00am Complies with drug therapy losartan potassium 50 mg oral tablet (3 sources) Angiotensin 2 Receptor Dominga take 1 tablet by mouth every twenty-four hours Losartan Potassium 50 MG 1 tablet Orally Once a day Active nabumetone 750 mg oral tablet (4 sources) Nonsteroidal Anti-inflammatory Drug Nabumetone 750 MG 1 tablet twice a day prn for 14 days Active omeprazole 20 mg delayed release oral capsule (20 sources) Proton Pump Inhibitor Start: 11-18-19 take 1 capsule by mouth once daily Omeprazole 20 mg capsule,delayed release(DR/EC) Active 0 .ROUTE .COMPLEX November 18, 2024 1:40pm TAKE 1 CAPSULE BY MOUTH EVERY DAY Complies with drug therapy Start: 01-11-2024 End: 11-18-2024 take 1 capsule by mouth once daily Omeprazole 20 mg capsule,delayed release(DR/EC) Discontinued 20 MG PO Daily January 11, 2024 1:00am November 18, 2024 1:40pm take 1 capsule by [facility] once daily Omeprazole 20 MG TAKE 1 CAPSULE BY MOUTH EVERY DAY for 90 Active Omeprazole 20 mg capsule,delayed release(DR/EC) (3 sources) Start: 11-18-2024 take 1 capsule by mouth once daily Omeprazole 20 mg capsule,delayed release(DR/EC) Active 0 .ROUTE .COMPLEX November 18, 2024 1:40pm TAKE 1 CAPSULE BY MOUTH EVERY DAY Start: 11-18-2024 take 1 capsule by [facility] once daily Omeprazole 20 mg capsule,delayed release(DR/EC) Active 0 .ROUTE .COMPLEX November 18, 2024 12:40pm TAKE 1 CAPSULE BY MOUTH EVERY DAY traMADol hydrochloride 50 mg oral tablet (3 sources) Opioid Agonist take 1 tablet by [facility] every twenty-four hours traMADol HCl 50 MG [...] Every 8 hours as needed for pain 01 06February 07, 2024 March 04, 2024 [...] actuat albuterol 0.09 mg/actuat dry powder inhaler (9 sources) beta2-Adrenergic Agonist Start: 01-11-2024 End: 01-14-2025 Albuterol Sulfate 90 mcg/actuation aerosol powdr breath activated Discontinued 1 INH INHALATION Every 4 hours as needed January 11, 2024 1:00am January 14, 2025 11:15am cyclobenzaprine hydrochloride 10 mg oral tablet (10 sources) Muscle Relaxant Start: 03-07-2024 End: 09-17-2024 [...] Nov, Active erythromycin 0.005 mg/mg ophthalmic ointment (8 sources) Macrolide, Macrolide Antimicrobial Start: 10-24-2024 End: 01-14-2025 Erythromycin 5 mg/gram (0.5 %) ointment Discontinued 1 APPLIC EYE-LEFT Daily 3.5 December 10, 2024 11:01am January 14, 2025 11:15am Start: 10-24-2024 End: 01-14-2025 Erythromycin 5 mg/gram (0.5 %) ointment Discontinued 1 APPLIC EYE-LEFT Daily 3.5 December 10, 2024 11:01am January 14, 2025 11:15am FLUoxetine 20 mg oral capsule (9 sources) Serotonin Reuptake Inhibitor Start: 09-17-2024 End: 10-24-2024 take 1 capsule by mouth once daily Fluoxetine 20 mg capsule Discontinued 20 MG PO Daily September 25, 2024 10:04am October 24, 2024 10:53am methocarbamol 750 mg oral tablet (13 sources) Muscle Relaxant Start: 01-11-2024 End: 03-07-2024 take 1 tablet by mouth every six hours as needed Methocarbamol 750 mg tablet Discontinued 750 MG PO Every 6 hours as needed January 11, 2024 1:00am March 07, 2024 11:01am Methocarbamol 75 0 MG 1 taablet every 6 hrs prn Active methylPREDNISolone 4 mg oral tablet (6 sources) Corticosteroid Start: 01-14-2025 End: 02-03-2025 take [...] succinate 50 mg extended release oral tablet (20 sources) beta-Adrenergic Dominga Start: 08-26-2024 End: 05-07-2025 take 1 tablet by mouth once daily Metoprolol Succinate 50 mg tablet extended release 24 hr Discontinued 0 .ROUTE .COMPLEX August 26, 2024 8:19am May 07, 2025 9:53am TAKE 1 TABLET BY MOUTH EVERY DAY Start: 08-26-2024 take 1 tablet by ashanti th once daily Metoprolol Succinate 50 mg tablet extended release 24 hr Active 0 .ROUTE .COMPLEX August 26, 2024 8:19am TAKE 1 TABLET BY MOUTH EVERY DAY Start: 08-26-2024 take 1 tablet by ashanti th once daily Metoprolol Succinate 50 mg tablet [...] that caused by tuberculosis or sexually transmitteddisease) (11 sources) External hordeolum; Translations: [Hordeolum externum left lower eyelid] 10-24-2024 Episodic Noninfectious gastroenteritis (6 sources) Gastroenteritis; Translations: [Noninfective gastroenteritis and colitis, [...] fracture of other bone] Episodic Other fractures (9 sources) Closed fracture of sternum; Translations: [Unspecified fracture of sternum, initial encounter for closed fracture] 01-29-2024 Episodic Other fractures (9 sources) Fracture of sternum; Translations: [Unspecified fracture of sternum, subsequent encounter for fracture with routine healing] 01-29-2024 Episodic Other nervous system disorders (14 sources) Mononeuropathy of lower limb; Translations: [Unspecified mononeuropathy of right lower limb] Chronic Other nervous system disorders (1 source) Unspecified mononeuropathy of bilateral lower limbs Chronic Other nervous system disorders (9 sources) Right leg peripheral neuropathy; Translations: [Unspecified mononeuropathy of right lower limb] 01-11-2024 Chronic Other nervous system disorders (1 source) Unspecified mononeuropathy of right lower limb; Translations: [Mononeuritis of lower limb, unspecified] 02-03-2025 Chronic Other nervous system disorders (1 source) Peripheral neuropathic pain; Translations: [Unspecified mononeuropathy of bilateral lower limbs] 02-12-2025 Chronic Other non-traumatic joint disorders (14 sources) [...] 02-16-2022 Episodic Other aftercare (1 source) Other chcf (current) drug therapy; Translations: [OTH PRODUCTION GENERALIST CURRENT DRUG THERAPY] Onset: 07-22-2022 Episodic Other [...] Translations: [Post-COVID syndrome] Unclassified (5 sources) 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); Translations: [Post-COVID syndrome] Results Test Name Value Interpretation Reference Range Facility Basophils Auto (Bld) [#/Vol] on 09-15-2024 Basophils (Bld) [#/Vol] 0.0 10 3/uL 0.0-0.1 [facility] Basophils (Bld) [#/Vol] Automated basophil count 0.0-0.1 [facility] Basophils/100 WBC Auto (Bld) on 09-15-2024 Basophils/100 WBC (Bld) 0.2 % 0.2-2.0 [facility] Basophils/100 WBC (Bld) Automated basophil % 0.2-2.0 [facility] Eosinophils/100 WBC Auto (Bl d)on 09-15-2024 Eosinophils/100 WBC (Bld) 0.5 % Low 0.9-7.0 [facility] Eosinophils/100 WBC (Bld) Automated eosinophil % Low 0.9-7.0 [facility] Erythrocyte distribution wid th Auto (RBC) [Ratio]on 09-15-2024 Erythrocyte distribution width (RBC) [Ratio] 13.4 % 11.0-15.0 [facility] Erythrocyte distribution width (RBC) [Ratio] Erythrocyte distribution width [Ratio] by Automated count 11.0-15.0 [facility] Estimated glomerular filtrat ion rate (GFR) non- Americanon 09-15-2024 GFR/1.73 sq M.predicted among non-blacks MDRD (S/P/Bld) [Vol rate/Area] mL/min/{1.73_m2} >=60 mL/min/1.73m 2 [facility] GFR/1.73 sq M.predicted among non-blacks MDRD (S/P/Bld) [Vol rate/Area] Estimated glomerular filtration rate (GFR) non- >=60 mL/min/1.73m 2 [facility] Globulin Calc (S) [Mass/Vol] on 09-15-2024 Globulin (S) [Mass/Vol] 3.4 g/dL [facility] Globulin (S) [Mass/Vol] Serum globulin measurement by calculation (mass/volume) [facility] Hematocrit Auto (Bld) [Volum e fraction]on 09-15-2024 Hematocrit (Bld) [Volume fraction] 39.4 % Low 42.0-54.0 [facility] Hematocrit (Bld) [Volume fraction] Hematocrit [Volume Fraction] of Blood by Automated count Low 42.0-54.0 [facility] Hemoglobin [Mass/volume] in Bloodon 09-15-2024 Hemoglobin (Bld) [Mass/Vol] 13.7 g/dL Low 14.0-18.0 [facility] Hemoglobin (Bld) [Mass/Vol] Hemoglobin [Mass/volume] in Blood Low 14.0-18.0 [facility] Laboratory - Chemistry and C hemistry - challengeon 09-15-2024 Albumin [Mass/Vol] 3.7 g/dL 3.4-5.0 [facility] ALP [Catalytic activity/Vol] 61 U/L 46-116 [facility] ALT [Catalytic activity/Vol] 30 U/L 16-63 [facility] AST [Catalytic activity/Vol] 23 U/L 15-37 [facility] Bilirubin [Mass/Vol] 0.5 mg/dL 0.2-1.0 [facility] Calcium [Mass/Vol] 8.9 mg/dL 8.5-10.1 [facility] Chloride [Moles/Vol] 102 mmol/L 98-107 [facility] CO2 [Moles/Vol] 26.1 mmol/L 21.0-32.0 [facility] Creatinine [Mass/Vol] 0.94 mg/dL 0.70-1.30 [facility] GFR/1.73 sq M.predicted MDRD (S/P/Bld) [Vol rate/Area] mL/min/{1.73_m2} >=60 mL/min/1.73m 2 [facility] Glucose [Mass/Vol] 83 mg/dL 74-106 [facility] Potassium [Moles/Vol] 3.2 mmol/L Low 3.5-5.1 [facility] Protein [Mass/Vol] 7.1 g/dL 6.4-8.2 [facility] Sodium [Moles/Vol] 139 mmol/L 136-145 [facility] Urea nitrogen [Mass/Vol] 14.0 mg/dL 7.0-18.0 [facility] Urea nitrogen/Creatinine [Mass ratio] 14.9 mg/mg [facility] Laboratory - Hematology and Cell countson 09-15-2024 Immature granulocytes/100 WBC (Bld) 0.2 % 0.0-0.5 [facility] Leukocytes [#/volume] correc donavan for nucleated erythrocytes in Blood by Automated counon 09-15-2024 WBC corrected for nucl RBC Auto (Bld) [#/Vol] 9.8 10 3/uL 4.0-11.0 [facility] WBC corrected for nucl RBC Auto (Bld) [#/Vol] Leukocytes [#/volume] corrected for nucleated erythrocytes in Blood by Automated coun 4.0-11.0 [facility] Lymphocytes Auto (Bld) [#/Vo l]on 09-15-2024 Lymphocytes (Bld) [#/Vol] 2.6 10 3/uL 1.2-3.8 [facility] Lymphocytes (Bld) [#/Vol] Lymphocytes [#/volume] in Blood by Automated count 1.2-3.8 [facility] Lymphocytes/100 WBC Auto (Bl d)on 09-15-2024 Lymphocytes/100 WBC (Bld) 26.1 % 20.5-60.0 [facility] Lymphocytes/100 WBC (Bld) Lymphocytes/100 leukocytes in Blood by Automated count 20.5-60.0 [facility] MCH Auto (RBC) [Entitic mass ]on 09-15-2024 MCH (RBC) [Entitic mass] 33.3 pg 25.9-34.0 [facility] MCH (RBC) [Entitic mass] MCH [Entitic mass] by Automated count 25.9-34.0 [facility] MCHC Auto (RBC) [Mass/Vol]on 09-15-2024 MCHC (RBC) [Mass/Vol] 34.8 g/dL 29.9-35.2 [facility] MCHC (RBC) [Mass/Vol] MCHC [Mass/volume] by Automated count 29.9-35.2 [facility] MCV Auto (RBC) [Entitic vol] on 09-15-2024 MCV (RBC) [Entitic vol] 95.9 fL High 80.0-94.0 [facility] MCV (RBC) [Entitic vol] MCV [Entitic volume] by Automated count High 80.0-94.0 [facility] Monocytes Auto (Bld) [#/Vol] on 09-15-2024 Monocytes (Bld) [#/Vol] 0.9 10 3/uL High 0.3-0.8 [facility] Monocytes (Bld) [#/Vol] Automated blood monocyte count High 0.3-0.8 [facility] Monocytes/100 WBC Auto (Bld) on 09-15-2024 Monocytes/100 WBC (Bld) 8.7 % 1.7-12.0 [facility] Monocytes/100 WBC (Bld) Automated monocyte % 1.7-12.0 [facility] Neutrophils Auto (Bld) [#/Vo l]on 09-15-2024 Neutrophils (Bld) [#/Vol] 6.3 10 3/uL 1.4-6.5 [facility] Neutrophils (Bld) [#/Vol] Neutrophils [#/volume] in Blood by Automated count 1.4-6.5 [facility] Neutrophils/100 WBC Auto (Bl d)on 09-15-2024 Neutrophils/100 WBC (Bld) 64.3 % 43.0-75.0 [facility] Neutrophils/100 WBC (Bld) Automated neutrophil % 43.0-75.0 [facility] No Panel Informationon 09-15 Eosinophils # (Auto) 0.1 10 3/uL 0.0-0.7 [facility] Immature Granulocyte # (Auto) 0.02 10 3/uL 0.00-0.03 [facility] Troponin I High Sensitivity 4.7 pg/mL 4.0-76.1 [facility] Comment on above: CUT-OFF POINTS HAVE BEEN [...] volume (Bld) [Entitic vol] 10.1 fL 9.5-13.5 [facility] Platelet mean volume (Bld) [Entitic vol] Platelet mean volume [Entitic volume] in Blood by Automated count 9.5-13.5 [facility] Platelets Auto (Bld) [#/Vol] on 09-15-2024 Platelets (Bld) [#/Vol] 197 10 3/uL 150-450 [facility] Platelets (Bld) [#/Vol] Platelets [#/volume] in Blood by Automated count 150-450 [facility] RBC Auto (Bld) [#/Vol]on RBC (Bld) [#/Vol] 4.11 10 6/uL Low 4.70-6.10 [facility] RBC (Bld) [#/Vol] Erythrocytes [#/volume] in Blood by Automated count Low 4.70-6.10 [facility] Serum or plasma albumin/glob ulin mass ratioon 09-15-2024 Albumin/Globulin [Mass ratio] 1.1 {ratio} [facility] Albumin/Globulin [Mass ratio] Serum or plasma albumin/globulin mass ratio [facility] Serum or plasma anion gap de terminationon 09-15-2024 Anion gap [Moles/Vol] 14.1 mmol/L [facility] Anion gap [Moles/Vol] Serum or plasma anion gap determination [facility] MR elbow RT wo conon 023 [place] [address] MRI Report Signed Patient: Sung Currie MR#: [id number] : 1975 Acct:[id number] Age/Sex: 48 / M ADM Date: 07/24/23 Loc: MR Room: Type: [facility] CLI Attending Dr: Rufus Leung DO Copies [...] Maciel Gonzalez M.D.07/24/2023 4:30 PM Dictation Location: [place] [address] Transcribed By: [facility] 07/24/23 1630 Dictated By: Maciel Gonzalez II, MD 07/24/23 1622 Signed By: 07/24/23 1630 Normal [facility] MR elbow RT wo con [facility] [employer] Other MR elbow RT wo con [facility] [employer] Other MR elbow RT wo con [address] [facility] [employer] Other [place] [address] [employer] Other MR elbow RT wo con MRI Report [employer] Other MR elbow RT wo con Signed [employer] Other MR elbow RT wo con Patient: Sung Currie MR#: [id number] [employer] Other MR elbow RT wo con : 1975 Acct:[id number] [employer] Other MR elbow RT wo con Age/Sex: 48 / M ADM Date: 07/24/23 [employer] Other MR elbow RT wo con Loc: MR Room: Type: [facility] [employer] Other MR elbow RT wo con Attending Dr: Rufus Leung DO [employer] Other MR elbow RT wo con Copies to: Rufus Leung DO [employer] Other MR elbow RT wo con Ordering Provider: Rufus Leung DO [employer] Other MR elbow RT wo con Date of Service: 07/24/23 [employer] Other MR elbow RT wo con MR/MR elbow RT wo con: [id number] [employer] Other MR elbow RT wo con MR elbow RT wo con 07/24/2023 12:34 PM [employer] Other MR elbow RT wo con SIGNS AND SYMPTOMS: Injury to biceps with pain from right elbow into right upper arm [employer] Other MR elbow RT wo con PROTOCOL: Multiplana r multisequence MR images of the right elbow were obtained without IV contrast [employer] Other MR elbow RT wo con COMPARISON: 07/20/2023 [employer] Other MR elbow RT wo con FINDINGS: [employer] Other MR elbow RT wo con Joint fluid: There i s a small joint effusion. [employer] Other MR elbow RT wo con Medial: [employer] Other MR elbow RT wo con Ulnar collateral ligament: Intact. [employer] Other MR elbow RT wo con Common flexor tendon : Intact. [employer] Other MR elbow RT wo con Medial epicondyle: Normal. [employer] Other MR elbow RT wo con Lateral: [employer] Other MR elbow RT wo con Radial collateral ligament: Intact. [employer] Other MR elbow RT wo con Lateral ulnar collateral ligament: Intact. [employer] Other MR elbow RT wo con Common extensor tendon: There is edema at the origin of the common extensor tendon. The tendon is [employer] Other MR elbow RT wo con grossly intact.. [employer] Other MR elbow RT wo con Lateral epicondyle: Normal. [employer] Other MR elbow RT wo con Posterior: [employer] Other MR elbow RT wo con Triceps: Intact. [employer] Other MR elbow RT wo con Olecranon: There is enthesophyte formation similar to that seen on previous radiographs. [employer] Other MR elbow RT wo con Anterior: [employer] Other MR elbow RT wo con Biceps: There is a full-thickness tear of the biceps tendon at the insertion along the radial [employer] Other MR elbow RT wo con tuberosity. The biceps tendon has been retracted by 10.7 cm. [employer] Other MR elbow RT wo con Brachialis: Intact. [employer] Other MR elbow RT wo con Bicipitoradial bursa : Intact. [employer] Other MR elbow RT wo con Articular: [employer] Other MR elbow RT wo con Radio-capitellar joint: Normal. [employer] Other MR elbow RT wo con Ulno-humeral joint: Normal. [employer] Other MR elbow RT wo con Proximal radio-ulnar joint: Normal. [employer] Other MR elbow RT wo con Bones (other than subarticular marrow): Normal. [employer] Other MR elbow RT wo con Muscles: Normal. [employer] Other MR elbow RT wo con Vessels: Normal. [employer] Other MR elbow RT wo con Nerves: Cubital tunnel normal, retinaculum intact. Anconeus epitrochlearis muscle present. [employer] Other MR elbow RT wo con Intra-articular bodies: None. [employer] Other MR elbow RT wo con MR/MR elbow RT wo con [employer] Other MR elbow RT wo con IMPRESSION: [employer] Other MR elbow RT wo con There is a full-thickness tear of the biceps tendon at the insertion along the radial tuberosity. [employer] Other MR elbow RT wo con The biceps tendon sahni s been retracted by 10.7 cm. [employer] Other MR elbow RT wo con Tendinopathy is note d at the origin of the common extensor tendon. [employer] Other MR elbow RT wo con There is enthesophyt e formation along the olecranon similar to the prior radiographs. [employer] Other MR elbow RT wo con Impression dictated by: Maciel Gonzalez M.D.07/24/2023 4:30 PM [employer] Other MR elbow RT wo con Dictation Location: [facility]--13 [employer] Other MR elbow RT wo con Transcribed By: [facility] 07/24/23 1630 [employer] Other MR elbow RT wo con Dictated By: Maciel Gonzalez II, MD 07/24/23 1625 [employer] Other MR elbow RT wo con Signed By: [employer] Other MR elbow RT wo con 07/24/23 1630 [facility] [employer] Other XR elbow RT 2Von 07-20-2023 XR elbow RT 2V [facility] [place] [address] [place] [address] XRay Report Signed Patient: Sung Currie MR#: [id number] : 1975 Acct:[id number] Age/Sex: 48 / M ADM Date: 07/20/23 [place] [facility] [place]: Type: [facility] Attending Dr: Rufus Leung DO Copies [...] Nuzhat Gutierrez M.D.07/20/2023 3:40 PM Dictation Location: [place] [address] Transcribed By: [facility] 07/20/23 1540 Dictated By: Nuzhat Gutierrez MD 07/20/23 1538 Signed By: 07/20/23 1540 Normal [facility] XR elbow RT 2V [facility] [employer] Other XR elbow RT 2V [facility] [employer] Other XR elbow RT 2V [address] [place] [address] [employer] Other [place]R elbow [place] 2[place] [address] No rt [employer] Other XR elbow RT 2V XRay Report [employer] Other XR elbow RT 2V Signed [email or web address] Other XR elbow RT 2V Patient: Sung Currie MR#: [id number] [employer] Other XR elbow RT 2V : 1975 Acct:[id number] [employer] Other XR elbow RT 2V Age/Sex: 48 / M ADM Date: 07/20/23 [employer] Other XR elbow RT 2V Loc: [facility] Room: Type : [facility] [employer] Other XR elbow RT 2V Attending Dr: Rufus Leung DO [employer] Other XR elbow RT 2V Copies to: Rufus Leung [employer] Other XR elbow RT 2V Ordering Provider: Rufus Leung DO [employer] Other XR elbow RT 2V Date of Service: 07/20/23 [employer] Other XR elbow RT 2V XR/XR elbow RT 2V: Rupture of right distal biceps tendon, initial [employer] Other XR elbow RT 2V encounter [email or web address] Other XR elbow RT 2V RIGHT ELBOW - 4 VIEWS [employer] Other XR elbow RT 2V CLINICAL HISTORY: History of right biceps injury 4-5 months ago with pain radiating from the elbow [employer] Other XR elbow RT 2V upward. [email or web address] Other XR elbow RT 2V COMPARISON: None [facility] [employer] Other XR elbow RT 2V AP and lateral views were obtained. No acute fracture or dislocation is noted. There is an [employer] Other XR elbow RT 2V enthesophyte at the olecranon at the insertion of triceps tendon with small adjacent corticated bony [employer] Other XR elbow RT 2V ossicles. There is minimal enthesophyte formation at the humeral condyles. A small amount of joint [employer] Other XR elbow RT 2V fluid is possible. N o focal soft tissue swelling is seen. [employer] Other XR elbow RT 2V XR/XR elbow RT 2V [employer] Other XR elbow RT 2V IMPRESSION: [employer] Other XR elbow RT 2V DEGENERATIVE CHANGES. [employer] Other XR elbow RT 2V NO DEFINITE ACUTE BONY FINDINGS. [employer] Other XR elbow RT 2V Impression dictated by: Nuzhat Gutierrez M.D.07/20/2023 3:40 PM [employer] Other XR elbow RT 2V Dictation Location: [place] [address] [employer] Other XR elbow RT 2V Transcribed By: PWS 07/20/23 1549 [employer] Other XR elbow RT 2V Dictated By: Nuzhat Gutierrez MD 07/20/23 0255 [employer] Other XR elbow RT 2V Signed By: [email or web address] Other XR elbow RT 2V 07/20/23 5021 [facility] Other Ambulatory Visit Summaryon 0 08-03-2022 Ambulatory Visit Summary SUNG CURRIE :1975 Visit Date:08/03/2022 Ambulatory Visit Instructions Your Care Team Attending Physician - Desiree HENSLEY, Layne Primary Care Physician - Desiree HENSLEY, Layne Allergies No active allergies Normal [facility] CBC AUTO DIFFon 07-25-2022 BASO # 0.0 103/ul Normal 0.0-0.1 [facility] Comment on above: Performed By: #### C BC #### [facility] [address] [address] [address] Nini Jordan Basophils/100 WBC (Bld) 0.2 % Normal 0.2-2.0 [facility] Comment on above: Performed By: #### C BC #### [facility] [address] [place] [address] Dr. Nini Jordan EO # 0.0 103/ul Normal 0.0-0.7 [facility] Comment on above: Performed By: #### C BC #### [facility] [address] [address] [address] Nini Jordan Eosinophils/100 WBC (Bld) 0.2 % Critically low 0.9-7.0 [facility] Comment on above: Performed By: #### C BC #### [facility] [address] [place] [address] Dr. Nini Jordan Erythrocyte distribution width (RBC) [Ratio] 12.6 % Normal 11.0-15.0 [facility] Comment on above: Performed By: #### C BC #### [facility] [address] [place] [address] Dr. Nini Jordan Hematocrit (Bld) [Volume fraction] 42.5 % Normal 42.0-54.0 [facility] Comment on above: Performed By: #### C BC #### [facility] [address] [place] [address] Dr. Nini Jordan Hemoglobin (Bld) [Mass/Vol] 14.0 g/dL Normal 14.0-18.0 [facility] Comment on above: Performed By: #### C BC #### [facility] [address] [place] [address] Dr. Nini Jordan IG # 0.06 10e3/ul Critically high 0.00-0.03 [facility] Comment on above: Performed By: #### C BC #### [facility] [address] [place] [address] Dr. Nini Jordan IG % 0.6 % Critically high 0.0-0.5 [facility] Comment on above: Performed By: #### C BC #### [facility] [address] [place] [address] Dr. Nini Jordan LYMPH # 1.6 103/ul Normal 1.2-3.8 [facility] Comment on above: Performed By: #### C BC #### [facility] [address] [place] [address] Dr. Nini Jordan Lymphocytes/100 WBC (Bld) 16.5 % Critically low 20.5-60.0 [facility] Comment on above: Performed By: #### C BC #### [facility] [address] [place] [address] Dr. Nini Jordan MANUAL DIFF REQ NO Normal [facility] Comment on above: Performed By: #### C BC #### [facility] [address] [place] [address] Dr. Nini Jordan MCH (RBC) [Entitic mass] 32.6 pg Normal 25.9-34.0 [facility] Comment on above: Performed By: #### C BC #### [facility] [address] [address] [address] Nini Jordan MCHC (RBC) [Mass/Vol] 32.9 g/dL Normal 29.9-35.2 [facility] Comment on above: Performed By: #### C BC #### [facility] [address] [address] [address] Nini Jordan MCV (RBC) [Entitic vol] 98.8 fL Critically high 80.0-94.0 [facility] Comment on above: Performed By: #### C BC #### [facility] [address] [address] [address] Nini Jordan MONO # 0.7 103/ul Normal 0.3-0.8 [facility] Comment on above: Performed By: #### C BC #### [facility] [address] [address] [address] Nini Jordan Monocytes/100 WBC (Bld) 6.8 % Normal 1.7-12.0 [facility] Comment on above: Performed By: #### C BC #### [facility] [address] [address] [address] Nini Jordan NEUT # 7.4 103/ul Critically high 1.4-6.5 [facility] Comment on above: Performed By: #### C BC #### [facility] [address] [address] [address] Nini Jordan Neutrophils/100 WBC (Bld) 75.7 % Critically high 43.0-75.0 [facility] Comment on above: Performed By: #### C BC #### [facility] [address] [address] [address] Nini Jordan Platelet mean volume (Bld) [Entitic vol] 9.4 fL Critically low 9.5-13.5 [facility] Comment on above: Performed By: #### C BC #### [facility] [address] [address] [address] Nini Jordan PLT 213 103/ul Normal 150-450 [facility] Comment on above: Performed By: #### C BC #### [facility] [address] [address] [address] Nini Jordan RBC 4.30 106/ul Critically low 4.70-6.10 [facility] Comment on above: Performed By: #### C BC #### [facility] [id number] Nini Jordan WBC 9.8 103/ul Normal 4.0-11.0 [facility] Comment on above: Performed By: #### C BC #### [facility] [address] [address] [address] Nini Jordan LIPID PROFILEon 07-25-2022 CHOL-HDL RATIO NORM SEE BELOW Normal [facility] Comment on above: Result Comment: 3.3 - 4.4 LOW RISK 4.4 - 7.1 AVERAGE RISK 7.1 - 11.0 MODERATE RISK >11.0 HIGH RISK Performed By: #### C BC #### [facility] [address] [address] [address] Nini Jordan Cholesterol [Mass/Vol] 243 mg/dL Critically high <=200 [facility] Comment on above: Performed By: #### C BC #### [facility] [address] [address] [address] Nini Jordan Cholesterol in HDL [Mass/Vol] 60 mg/dL Normal 40-60 [facility] Comment on above: Performed By: #### C BC #### [facility] [address] [address] [address] Nini Jordan Cholesterol in LDL [Mass/Vol] 162.6 mg/dL Normal [facility] Comment on above: Performed By: #### C BC #### [facility] [address] [address] [address] Nini Jordan Cholesterol.total/C holesterol in HDL [Mass ratio] 4.1 {ratio} Normal [facility] Comment on above: Performed By: #### C BC #### [facility] [address] [address] [address] Nini Jordan HDL NORMAL > or = 60 mg/dl - LO W CARDIOVASCULAR RISK <40 mg/dl - HIGH CARDIOVASCULAR RISK Normal [facility] Comment on above: Performed By: #### C BC #### [facility] [address] [address] [address] Nini Jordan LDL CALC NORMAL SEE BELOW Normal [facility] Comment on above: Result Comment: <100 mg/dl OPTIMAL 100 - 129 mg/dl NEAR OR ABOVE OPTIMAL 130 - 159 mg/dl BORDERLINE HIGH 160 - 189 mg/dl HIGH >190 mg/dl VERY HIGH Performed By: #### C BC #### [facility] [address] [address] [address] Nini Jordan Triglyceride [Mass/Vol] 102 mg/dL Normal <=150 [facility] Comment on above: Performed By: #### C BC #### [facility] [address] [place] [address] Dr. Nini Jordan VLDL CALC 20.4 mg/dL Normal [facility] Comment on above: Performed By: #### C BC #### [facility] [address] [place] [address] Dr. Nini Jordan PROF 14(COMP METB)on 022 Albumin [Mass/Vol] 3.3 g/dL Critically low 3.4-5.0 [facility] Comment on above: Performed By: #### C BC #### [facility] [address] [place] [address] Dr. Nini Jordan Albumin/Globulin [Mass ratio] 0.9 {ratio} Normal [facility] Comment on above: Performed By: #### C BC #### [facility] [address] [place] [address] Dr. Nini Jordan ALP [Catalytic activity/Vol] 72 U/L Normal 46-116 [facility] Comment on above: Performed By: #### C BC #### [facility] [address] [place] [address] Dr. Nini Jordan ALT [Catalytic activity/Vol] 46 U/L Normal 16-63 [facility] Comment on above: Performed By: #### C BC #### [facility] [address] [place] [address] Dr. Nini Jordan Anion gap [Moles/Vol] 11.0 mmol/L Normal [facility] Comment on above: Performed By: #### C BC #### [facility] [address] [address] [address] Nini Jordan AST [Catalytic activity/Vol] 25 U/L Normal 15-37 [facility] Comment on above: Performed By: #### C BC #### [facility] [address] [address] [address] Nini Jordan Bilirubin [Mass/Vol] 0.3 mg/dL Normal 0.2-1.0 [facility] Comment on above: Performed By: #### C BC #### [facility] [address] [address] [address] Nini Jordan Calcium [Mass/Vol] 8.7 mg/dL Normal 8.5-10.1 [facility] Comment on above: Performed By: #### C BC #### [facility] [address] [place] [address] Dr. Nini Jordan Chloride [Moles/Vol] 99 mmol/L Normal 98-107 [facility] Comment on above: Performed By: #### C BC #### [facility] [address] [address] [address] Nini Jordan CO2 [Moles/Vol] 27.3 mmol/L Normal 21.0-32.0 [facility] Comment on above: Performed By: #### C BC #### [facility] [address] [address] [address] Nini Jordan Creatinine [Mass/Vol] 0.87 mg/dL Normal 0.70-1.30 [facility] Comment on above: Performed By: #### C BC #### [facility] [address] [address] [address] Nini Jordan EGFR-AF MAURITIAN >60 Normal >=60 [facility] Comment on above: Performed By: #### C BC #### [facility] [address] [address] [address] Nini Jordan EGFR-NON AF MAURITIAN >60 Normal >=60 [facility] Comment on above: Performed By: #### C BC #### [facility] [address] [address] [address] Nini Jordan Globulin (S) [Mass/Vol] 3.7 g/dL Normal [facility] Comment on above: Performed By: #### C BC #### [facility] [address] [address] [address] Nini Jordan Glucose [Mass/Vol] 109 mg/dL Critically high 74-106 [facility] Comment on above: Performed By: #### C BC #### [facility] [address] [address] [address] Nini Jordan Potassium [Moles/Vol] 3.3 mmol/L Critically low 3.5-5.1 [facility] Comment on above: Performed By: #### C BC #### [facility] [address] [place] [address] Dr. Nini Jordan Protein [Mass/Vol] 7.0 g/dL Normal 6.4-8.2 [facility] Comment on above: Performed By: #### C BC #### [facility] [address] [place] [address] Dr. Nini Jordan Sodium [Moles/Vol] 134 mmol/L Critically low 136-145 [facility] Comment on above: Performed By: #### C BC #### [facility] [address] [place] [address] Dr. Nini Jordan Urea nitrogen [Mass/Vol] 20.0 mg/dL Critically high 7.0-18.0 [facility] Comment on above: Performed By: #### C BC #### [facility] [address] [place] [address] Dr. Nini Jordan Urea nitrogen/Creatinine [Mass ratio] 23.0 mg/mg Normal [facility] Comment on above: Performed By: #### C BC #### [facility] [address] [place] [address] Dr. Nini Jordan AMYLASEon 02-14-2022 AMYL <30 Normal 25-115 [facility] Comment on above: Performed By: #### C BC #### [facility] [address] [address] [address] Nini Jordan CBC AUTO DIFFon 02-14-2022 BASO # 0.0 103/ul Normal 0.0-0.1 [facility] Comment on above: Performed By: #### C BC #### [facility] [address] [place] [address] Dr. Nini Jordan Basophils/100 WBC (Bld) 0.3 % Normal 0.2-2.0 [facility] Comment on above: Performed By: #### C BC #### [facility] [address] [place] [address] Dr. Nini Jordan EO # 0.0 103/ul Normal 0.0-0.7 [facility] Comment on above: Performed By: #### C BC #### [facility] [address] [place] [address] Dr. Nini Jordan Eosinophils/100 WBC (Bld) 0.1 % Critically low 0.9-7.0 [facility] Comment on above: Performed By: #### C BC #### [facility] [address] [place] [address] Dr. Nini Jordan Erythrocyte distribution width (RBC) [Ratio] 13.4 % Normal 11.0-15.0 [facility] Comment on above: Performed By: #### C BC #### [facility] [address] [place] [address] Dr. Nini Jordan Hematocrit (Bld) [Volume fraction] 44.2 % Normal 42.0-54.0 [facility] Comment on above: Performed By: #### C BC #### [facility] [address] [place] [address] Dr. Nini Jordan Hemoglobin (Bld) [Mass/Vol] 14.8 g/dL Normal 14.0-18.0 [facility] Comment on above: Performed By: #### C BC #### [facility] [address] [place] [address] Dr. Nini Jordan IG # 0.11 10e3/ul Critically high 0.00-0.03 [facility] Comment on above: Performed By: #### C BC #### [facility] [address] [place] [address] Dr. Nini Jordan IG % 0.7 % Critically high 0.0-0.5 [facility] Comment on above: Performed By: #### C BC #### [facility] [address] [place] [address] Dr. Nini Jordan LYMPH # 1.6 103/ul Normal 1.2-3.8 [facility] Comment on above: Performed By: #### C BC #### [facility] [address] [place] [address] Dr. Nini Jordan Lymphocytes/100 WBC (Bld) 10.3 % Critically low 20.5-60.0 [facility] Comment on above: Performed By: #### C BC #### [facility] [address] [place] [address] Dr. Nini Jordan MANUAL DIFF REQ NO Normal [facility] Comment on above: Performed By: #### C BC #### [facility] [address] [place] [address] Dr. Nini Jordan MCH (RBC) [Entitic mass] 31.6 pg Normal 25.9-34.0 [facility] Comment on above: Performed By: #### C BC #### [facility] [address] [place] [address] Dr. Nini Jordan MCHC (RBC) [Mass/Vol] 33.5 g/dL Normal 29.9-35.2 [facility] Comment on above: Performed By: #### C BC #### [facility] [address] [place] [address] Dr. Nini Jordan MCV (RBC) [Entitic vol] 94.2 fL Critically high 80.0-94.0 [facility] Comment on above: Performed By: #### C BC #### [facility] [address] [place] [address] Dr. Nini Jordan MONO # 1.0 103/ul Critically high 0.3-0.8 [facility] Comment on above: Performed By: #### C BC #### [facility] [address] [address] [address] Nini Jordan Monocytes/100 WBC (Bld) 6.4 % Normal 1.7-12.0 [facility] Comment on above: Performed By: #### C BC #### [facility] [address] [address] [address] Nini Jordan NEUT # 12.5 103/ul Critically high 1.4-6.5 [facility] Comment on above: Performed By: #### C BC #### [facility] [address] [address] [address] Nini Jordan Neutrophils/100 WBC (Bld) 82.2 % Critically high 43.0-75.0 [facility] Comment on above: Performed By: #### C BC #### [facility] [address] [place] [address] Dr. Nini Jordan Platelet mean volume (Bld) [Entitic vol] 9.4 fL Critically low 9.5-13.5 [facility] Comment on above: Performed By: #### C BC #### [facility] [address] [address] [address] Nini Jordan PLT 327 103/ul Normal 150-450 [facility] Comment on above: Performed By: #### C BC #### [facility] [address] [place], [place] [id number] Dr. Nini Jordan RBC 4.69 106/ul Critically low 4.70-6.10 [facility] Comment on above: Performed By: #### C BC #### [facility] [address] [place] [address] Dr. Nini Jordan WBC 15.2 103/ul Critically high 4.0-11.0 [facility] Comment on above: Performed By: #### C BC #### [facility] [address] [place], [place] [id number] Dr. Nini Jordan CT ABD/PELV W CONon [...] EDUARD QUIROS Date: 2022-02-14 15:30 Normal [facility] ETHANOL (BLD ALC)on 02-15-20 22 ALC NOTE NOTE: 80 mg/dl is [facility] legal limit for a blood alcohol level Normal [facility] Comment on above: Performed By: #### C BC #### [facility] [address] [place] [address] Dr. Nini Jordan Ethanol [Mass/Vol] mg/dL Normal [facility] Comment on above: Performed By: #### C BC #### [facility] [address] [place] [address] Dr. Nini Jordan GI PANEL (PCR)on 02-14-2022 Adenovirus F 40/41 Not detected Normal NOT DETECTED e [facility] Comment on above: Performed By: #### C BC #### [facility] [address] [place] [address] Dr. Nini Jordan Astrovirus Not detected Normal NOT DETECTED [facility] Comment on above: Performed By: #### C BC #### [facility] [address] [place] [address] Dr. Nini Menchaca. Diff toxin A/B Not detected Normal NOT DETECTED [facility] Comment on above: Performed By: #### C BC #### [facility] [address] [place] [address] Dr. Nini Jordan Campylobacter Not detected Normal NOT DETECTED [facility] Comment on above: Performed By: #### C BC #### [facility] [address] [place] [address] Dr. Nini Jordan Cryptosporidium Not detected Normal NOT DETECTED [facility] Comment on above: Performed By: #### C BC #### [facility] [address] [place] [address] Dr. Nini Jordan Cyclos. Cayetanensis Not detected Normal NOT DETECTED [facility] Comment on above: Performed By: #### C BC #### [facility] [address] [place] [address] Dr. Nini Jordan E. Coli O157 Not Applicable Normal Not Applicable [facility] Comment on above: Performed By: #### C BC #### [facility] [address] [place] [address] Dr. Nini Jordan E. histolytica Not detected Normal NOT DETECTED [facility] Comment on above: Performed By: #### C BC #### [facility] [address] [place] [address] Dr. Nini Jordan EAEC Not detected Normal NOT DETECTED [facility] Comment on above: Performed By: #### C BC #### [facility] [address] [place] [address] Dr. Nini Jordan EIEC Not detected Normal NOT DETECTED [facility] Comment on above: Performed By: #### C BC #### [facility] [address] [place] [address] Dr. Nini Jordan EPEC Not detected Normal NOT DETECTED [facility] Comment on above: Performed By: #### C BC #### [facility] [address] [place] [address] Dr. Nini Jordan ETEC Not detected Normal NOT DETECTED [facility] Comment on above: Performed By: #### C BC #### [facility] [address] [address] [address] Nini Titus Lamblia Not detected Normal NOT DETECTED [facility] Comment on above: Performed By: #### C BC #### [facility] [address] [address] [address] Nini PAGE CONTROLS PASSED Normal [facility] Comment on above: Performed By: #### C BC #### [facility] [address] [address] [address] Nini [facility] HEADER GI PANEL BACTERIA Normal [facility] Comment on above: Performed By: #### C BC #### [facility] [address] [place] [address] Dr. Nini GOSS ECOLI GI PANEL DIARRHEAGENIC E.COLI / SHIGELLA Normal [facility] Comment on above: Performed By: #### C BC #### [facility] [address] [place] [address] Dr. Nini GOSS INFO SEE BELOW Normal [facility] Comment on above: Result Comment: EAEC - Enteroaggregative E. Coli EPEC- Enteropathogenic E. Coli ETEC- Enterotoxigenic E. Coli lt/st STEC- Shigella-like toxin-producing E. Coli stx1/stx2 EIEC- Shigella/Enteroinvasive E. Coli Performed By: #### C BC #### [facility] [address] [place] [address] Dr. Nini GOSS PARASITES GI PANEL PARASITES Normal [facility] Comment on above: Performed By: #### C BC #### [facility] [address] [place] [address] Dr. Nini GOSS VIRUS GI PANEL VIRUSES Normal [facility] Comment on above: Performed By: #### C BC #### [facility] [address] [place] [address] Dr. Nini Jordan Norovirus GI/GII Not detected Normal NOT DETECTED [facility] Comment on above: Performed By: #### C BC #### [facility] [address] [place] [address] Dr. Nini Jordan P. Shigelloides Not detected Normal NOT DETECTED [facility] Comment on above: Performed By: #### C BC #### [facility] [address] [place] [address] Dr. Nini Jordan Rotavirus A Not detected Normal NOT DETECTED [facility] Comment on above: Performed By: #### C BC #### [facility] [address] [place] [address] Dr. Nini Jordan Salmonella Not detected Normal NOT DETECTED [facility] Comment on above: Performed By: #### C BC #### [facility] [address] [place] [address] Dr. Nini Jordan Sapovirus Not detected Normal NOT DETECTED [facility] Comment on above: Performed By: #### C BC #### [facility] [address] [place] [address] Dr. Nini Jordan STEC Not detected Normal NOT DETECTED [facility] Comment on above: Performed By: #### C BC #### [facility] [address] [place] [address] Dr. Nini Jordan Vibrio Not detected Normal NOT DETECTED [facility] Comment on above: Performed By: #### C BC #### [facility] [address] [place] [address] Dr. Nini Jordan Vibrio Cholera Not detected Normal NOT DETECTED [facility] Comment on above: Performed By: #### C BC #### [facility] [address] [place] [address] Dr. Nini Jordan Y. Enterocolitica Not detected Normal NOT DETECTED [facility] Comment on above: Performed By: #### C BC #### [facility] [address] [place] [address] Dr. Nini Jordan LACTATE/LACTIC ACIDon 2021 Lactate [Moles/Vol] 1.2 mmol/L Normal 0.7-2.0 [facility] Comment on above: Performed By: #### L ACT #### [facility] [address] [place] [address] Dr. Nini Jordan LIPASEon 02-14-2022 Lipase [Catalytic activity/Vol] 88.0 U/L Normal 23.0-300.0 [facility] Comment on above: Performed By: #### C BC #### [facility] [address] [place] [address] Dr. Nini Jordan PROF 14(COMP METB)on 022 Albumin [Mass/Vol] 3.8 g/dL Normal 3.4-5.0 [facility] Comment on above: Performed By: #### C BC #### [facility] [address] [place] [address] Dr. Nini Jordan Albumin/Globulin [Mass ratio] 0.9 {ratio} Normal [facility] Comment on above: Performed By: #### C BC #### [facility] [address] [place] [address] Dr. Nini Jordan ALP [Catalytic activity/Vol] 106 U/L Normal 46-116 [facility] Comment on above: Performed By: #### C BC #### [facility] [address] [place] [address] Dr. Nini Jordan ALT [Catalytic activity/Vol] 52 U/L Normal 16-63 [facility] Comment on above: Performed By: #### C BC #### [facility] [address] [place] [address] Dr. Nini Jordan Anion gap [Moles/Vol] 14.6 mmol/L Normal [facility] Comment on above: Performed By: #### C BC #### [facility] [address] [place] [address] Dr. Nini Jordan AST [Catalytic activity/Vol] 28 U/L Normal 15-37 [facility] Comment on above: Performed By: #### C BC #### [facility] [address] [place] [address] Dr. Nini Jordan Bilirubin [Mass/Vol] 0.5 mg/dL Normal 0.2-1.3 [facility] Comment on above: Performed By: #### C BC #### [facility] [address] [place] [address] Dr. Nini Jordan Calcium [Mass/Vol] 9.1 mg/dL Normal 8.5-10.1 [facility] Comment on above: Performed By: #### C BC #### [facility] [address] [place] [address] Dr. Nini Jordan Chloride [Moles/Vol] 100 mmol/L Normal 98-107 [facility] Comment on above: Performed By: #### C BC #### [facility] [address] [place] [address] Dr. Nini Jordan CO2 [Moles/Vol] 24.9 mmol/L Normal 22.0-30.0 [facility] Comment on above: Performed By: #### C BC #### [facility] [address] [place] [address] Dr. Nini Jordan Creatinine [Mass/Vol] 1.02 mg/dL Normal 0.66-1.25 [facility] Comment on above: Performed By: #### C BC #### [facility] [address] [place] [address] Dr. Nini Jordan EGFR-AF MAURITIAN >60 Normal >=60 [facility] Comment on above: Performed By: #### C BC #### [facility] [address] [place] [address] Dr. Nini Jordan EGFR-NON AF MAURITIAN >60 Normal >=60 [facility] Comment on above: Performed By: #### C BC #### [facility] [address] [place] [address] Dr. Nini Jordan Globulin (S) [Mass/Vol] 4.1 g/dL Normal [facility] Comment on above: Performed By: #### C BC #### [facility] [address] [place] [address] Dr. Nini Jordan Glucose [Mass/Vol] 135 mg/dL Critically high 74-106 [facility] Comment on above: Performed By: #### C BC #### [facility] [address] [place] [address] Dr. Nini Jodran Potassium [Moles/Vol] 3.5 mmol/L Normal 3.4-5.0 [facility] Comment on above: Performed By: #### C BC #### [facility] [address] [address] [address] Nini Jordan Protein [Mass/Vol] 7.9 g/dL Normal 6.1-8.2 [facility] Comment on above: Performed By: #### C BC #### [facility] [address] [address] [address] Nini Jordan Sodium [Moles/Vol] 136 mmol/L Critically low 137-145 [facility] Comment on above: Performed By: #### C BC #### [facility] [address] [place] [address] Dr. Nini Jordan Urea nitrogen [Mass/Vol] 17.0 mg/dL Normal 7.0-18.0 [facility] Comment on above: Performed By: #### C BC #### [facility] [address] [place] [address] Dr. Nini Jordan Urea nitrogen/Creatinine [Mass ratio] 16.7 mg/mg Normal [facility] Comment on above: Performed By: #### C BC #### [facility] [address] [place] [address] Dr. Nini Jordan PROTIMEon 02-14-2022 INR Coag (PPP) [Relative time] 0.93 {INR} Normal [facility] Comment on above: Performed By: #### P TT, PT #### [facility] [address] [place] [address] Dr. Nini Jordan INR GUIDELINES SEE BELOW Normal [facility] Comment on above: Result Comment: YURIY RED INR: 2.0 - 3.0 CONDITIONS NOT LISTED BELOW 2.5 - 3.5 FOR PROSTHETIC HEART VALVE REPLACEMENT 2.5 - 3.5 RECURRENT THROMBOSIS Performed By: #### P TT, PT #### [facility] [address] [place] [address] Dr. Nini Jordan PT Coag (PPP) [Time] 10.1 s Normal 9.0-11.6 [facility] Comment on above: Performed By: #### P TT, PT #### [facility] [address] [place] [address] Dr. Nini Jordan PTTon 02-14-2022 aPTT Coag (Bld) [Time] 24.8 s Normal 22.3-36.2 [facility] Comment on above: Performed By: #### P TT, PT #### [facility] [address] [address] [address] Nini Jordan Vital Signs Date Time Vital Sign Value Performing Clinician Facility 05-07-2025 09:240400 Body height 175.26 cm Bernice Ewing MD Work Phone: [facility] 05-07-2025 09:24-0400 Body mass index (BMI) [Ratio] 32 kg/m2 Bernice Ewing MD Work Phone: [facility] 05-07-2025 09:24-0400 Body weight 98.42 kg Bernice Ewing MD Work Phone: [facility] 05-07-2025 09:24-0400 Diastolic blood pressure 98 mm[Hg] Bernice Ewing MD Work Phone: [facility] 05-07-2025 09:24-0400 Heart rate 78 /min Bernice Ewing MD Work Phone: [facility] 05-07-2025 09:24-0400 Systolic blood pressure 143 mm[Hg] Bernice Ewing MD Work Phone: [facility] 02-03-2025 08:28-0400 Body height 175.26 cm [facility] 02-03-2025 08:28-0400 Body mass index (BMI) [Ratio] 31.1 kg/m2 [facility] 02-03-2025 08:28-0400 Body weight 95.7 kg [facility] 02-03-2025 08:28-0400 Diastolic blood pressure 76 mm[Hg] [facility] 02-03-2025 08:28-0400 Heart rate 66 /min [facility] 02-03-2025 08:28-0400 Systolic blood pressure 118 mm[Hg] [facility] 01-14-2025 10:13-0500 Body height 175.26 cm [facility] 01-14-2025 10:13-0500 Body mass index (BMI) [Ratio] 31.8 kg/m2 [facility] 01-14-2025 10:13-0500 Body temperature 98.7 [degF] [facility] 01-14-2025 10:13-0500 Body weight 98.03 kg [facility] 01-14-2025 10:13-0500 Diastolic blood pressure 85 mm[Hg] [facility] 01-14-2025 10:13-0500 Heart rate 80 /min [facility] 01-14-2025 10:13-0500 Respiratory rate 16 /min [facility] 01-14-2025 10:13-0500 SaO2% (BldA) [Mass fraction] 96 % [facility] 01-14-2025 10:13-0500 Systolic blood pressure 130 mm[Hg] [facility] 12-10-2024 09:46-0500 Body height 172.72 cm [facility] 12-10-2024 09:46-0500 Body mass index (BMI) [Ratio] 33.1 kg/m2 [facility] 12-10-2024 09:46-0500 Body weight 98.88 kg [facility] 12-10-2024 09:46-0500 Diastolic blood pressure 98 mm[Hg] [facility] 12-10-2024 09:46-0500 Heart rate 61 /min [facility] 12-10-2024 09:46-0500 Systolic blood pressure 152 mm[Hg] [facility] 10-24-2024 09:48-0500 Body height 172.72 cm [facility] 10-24-2024 09:48-0500 Body mass index (BMI) [Ratio] 30.2 kg/m2 [facility] 10-24-2024 09:48-0500 Body weight 90.26 kg [facility] 10-24-2024 09:48-0500 Diastolic blood pressure 88 mm[Hg] [facility] 10-24-2024 09:48-0500 Heart rate 74 /min [facility] 10-24-2024 09:48-0500 Systolic blood pressure 138 mm[Hg] [facility] 09-17-2024 09:44-0500 Body height 172.72 cm [facility] 09-17-2024 09:44-0500 Body mass index (BMI) [Ratio] 30.4 kg/m2 [facility] 09-17-2024 09:44-0500 Body weight 90.71 kg [facility] 09-17-2024 09:44-0500 Diastolic blood pressure 76 mm[Hg] [facility] 09-17-2024 09:44-0500 Heart rate 60 /min [facility] 09-17-2024 09:44-0500 Systolic blood pressure 118 mm[Hg] [facility] 07-17-2024 11:20-0400 Body height 172.72 cm [facility] 07-17-2024 11:20-0400 Body mass index (BMI) [Ratio] 32.2 kg/m2 [facility] 07-17-2024 11:20-0400 Body weight 96.16 kg [facility] 07-17-2024 11:20-0400 Diastolic blood pressure 117 mm[Hg] [facility] 07-17-2024 11:20-0400 Heart rate 76 /min [facility] 07-17-2024 11:20-0400 Systolic blood pressure 158 mm[Hg] [facility] 03-07-2024 10:49-0400 Body height 172.72 cm [facility] 03-07-2024 10:49-0400 Body mass index (BMI) [Ratio] 34.9 kg/m2 [facility] 03-07-2024 10:49-0400 Body weight 104.32 kg [facility] 03-07-2024 10:49-0400 Diastolic blood pressure 87 mm[Hg] [facility] 03-07-2024 10:49-0400 Heart rate 84 /min [facility] 03-07-2024 10:49-0400 Systolic blood pressure 131 mm[Hg] [facility] 02-16-2024 11:53-0400 Body height 172.72 cm [facility] 02-16-2024 11:53-0400 Body mass index (BMI) [Ratio] 35.4 kg/m2 [facility] 02-16-2024 11:53-0400 Body weight 105.74 kg [facility] 02-16-2024 11:53-0400 Diastolic blood pressure 85 mm[Hg] [facility] 02-16-2024 11:53-0400 Heart rate 69 /min [facility] 02-16-2024 11:53-0400 Systolic blood pressure 121 mm[Hg] [facility] 01-29-2024 15:19-0400 Body height 172.72 cm [facility] 01-29-2024 15:19-0400 Body mass index (BMI) [Ratio] 35.2 kg/m2 [facility] 01-29-2024 15:19-0400 Body weight 105.23 kg [facility] 01-29-2024 15:19-0400 Diastolic blood pressure 75 mm[Hg] [facility] 01-29-2024 15:19-0400 Heart rate 76 /min [facility] 01-29-2024 15:19-0400 Systolic blood pressure 115 mm[Hg] [facility] 01-12-2024 11:22-0500 Body height 172.72 cm [facility] 01-12-2024 11:22-0500 Body mass index (BMI) [Ratio] 34.3 kg/m2 [facility] 01-12-2024 11:22-0500 Body weight 102.51 kg [facility] 01-12-2024 11:22-0500 Diastolic blood pressure 82 mm[Hg] [facility] 01-12-2024 11:22-0500 Heart rate 77 /min [facility] 01-12-2024 11:22-0500 Systolic blood pressure 130 mm[Hg] [facility] 12-25-2023 11:00-0500 Body height 172.72 cm Bernice Ewing Other [employer] Other 12-25-2023 11:00-0500 Body mass index (BMI) [Ratio] 34.15 kg/m2 Bernice Ewing Other [employer] Other 12-25-2023 11:00-0500 Body weight 101.88 kg Bernice Ewing Other [employer] Other 12-25-2023 11:00-0500 Diastolic blood pressure 88 mm[Hg] Bernice Ewing Other [employer] Other 12-25-2023 11:00-0500 Systolic blood pressure 147 mm[Hg] Bernice Ewing Other [employer] Other 12-18-2023 14:00-0500 Body height 172.72 cm Bernice Ewing Other [employer] Other 12-18-2023 14:00-0500 Body mass index (BMI) [Ratio] 34.06 kg/m2 Bernice Ewing Other [employer] Other 12-18-2023 14:00-0500 Body weight 101.61 kg Bernice Ewing Other [employer] Other 12-18-2023 14:00-0500 Diastolic blood pressure 96 mm[Hg] Bernice Ewing Other [employer] Other 12-18-2023 14:00-0500 Systolic blood pressure 152 mm[Hg] Bernice Ewing Other [employer] Other 09-14-2023 11:00-0400 Body height 172.72 cm Bernice Ewing Other [employer] Other 09-14-2023 11:00-0400 Body mass index (BMI) [Ratio] 34.57 kg/m2 Bernice Ewing Other [employer] Other 09-14-2023 11:00-0400 Body weight 103.15 kg Bernice Ewing Other [employer] Other 09-14-2023 11:00-0400 Diastolic blood pressure 82 mm[Hg] Bernice Ewing Other [employer] Other 09-14-2023 11:00-0400 Systolic blood pressure 121 mm[Hg] Bernice Ewing Other [employer] Other 07-20-2023 13:30-0400 Body height 172.72 cm Rufusnida Mullinsley Other [employer] Other 07-20-2023 13:30-0400 Body mass index (BMI) [Ratio] 33.45 kg/m2 Rufus Leung Other [employer] Other 07-20-2023 13:30-0400 Body weight 99.79 kg Rufus Xochitl Other [employer] Other 07-10-2023 10:15-0400 Body height 172.72 cm Bernice Ewing Other [employer] Other 07-10-2023 10:15-0400 Body mass index (BMI) [Ratio] 33.3 kg/m2 Bernice Ewing Other [employer] Other 07-10-2023 10:15-0400 Body weight 99.34 kg Bernice Ewing Other [employer] Other 07-10-2023 10:15-0400 Diastolic blood pressure 95 mm[Hg] Bernice Ewing Other [employer] Other 07-10-2023 10:15-0400 Systolic blood pressure 147 mm[Hg] Bernice Ewing Other [employer] Other 03-14-2023 16:15-0400 Body height 172.72 cm Bernice Ewing Other [employer] Other 03-14-2023 16:15-0400 Body mass index (BMI) [Ratio] 34.82 kg/m2 Bernice Ewing Other [employer] Other 03-14-2023 16:15-0400 Body weight 103.87 kg Bernice Ewing Other [employer] Other 03-14-2023 16:15-0400 Diastolic blood pressure 74 mm[Hg] Bernice Ewing Other [employer] Other 03-14-2023 16:15-0400 SaO2% (BldA) [Mass fraction] 98 % Bernice Ewing Other [employer] Other 03-14-2023 16:15-0400 Systolic blood pressure 132 mm[Hg] Bernice Ewing Other [employer] Other 12-02-2022 11:00-0500 Body height 172.72 cm Bernice Ewing Other [employer] Other 12-02-2022 11:00-0500 Body mass index (BMI) [Ratio] 36.64 kg/m2 Bernice Ewing Other [employer] Other 12-02-2022 11:00-0500 Body weight 109.32 kg Bernice Ewing Other [employer] Other 12-02-2022 11:00-0500 Diastolic blood pressure 72 mm[Hg] Bernice Ewing Other [employer] Other 12-02-2022 11:00-0500 SaO2% (BldA) [Mass fraction] 97 % Bernice Ewing Other [employer] Other 12-02-2022 11:00-0500 Systolic blood pressure 116 mm[Hg] Bernice Ewing Other [employer] Other Encounters Encounter Date Encounter Type Care Provider Facility Start: 05-07-2025 End: 05-07-2025 ambulatory Bernice Ewing MD Work Phone: [facility] Work Phone: Start: 05-07-2025 End: 05-07-2025 Patient encounter procedure Bernice Ewing MD -[facility] Work Phone: Start: 03-11-2025 Non-patient / Non-visit Jimena Mao CMA -[facility] Work Phone: Start: 02-03-2025 Patient encounter status [facility] Start: 02-03-2025 End: 02-03-2025 ambulatory [facility] Work Phone: Start: 02-03-2025 End: 02-03-2025 Encounter for general adult medical examination without abnormal findings [facility] Start: 02-03-2025 End: 02-03-2025 Patient encounter procedure [facility] Work Phone: Start: 01-14-2025 End: 01-14-2025 ambulatory [facility] Work Phone: Start: 01-14-2025 End: 01-14-2025 Patient encounter procedure [facility] Work Phone: Start: 12-10-2024 End: 12-10-2024 ambulatory [facility] Work Phone: Start: 12-10-2024 End: 12-10-2024 Patient encounter procedure [facility] Work Phone: Start: 10-30-2024 Non-patient / Non-visit [facility] Work Phone: Start: 10-24-2024 End: 10-24-2024 Patient encounter procedure [facility] Work Phone: Start: 09-17-2024 End: 09-17-2024 ambulatory [facility] Work Phone: Start: 09-17-2024 End: 09-17-2024 Patient encounter procedure [facility] Work Phone: Start: 09-16-2024 Non-patient / Non-visit [facility] Work Phone: Start: 09-15-2024 Non-patient / Non-visit [facility] Work Phone: Start: 07-17-2024 End: 07-17-2024 ambulatory [facility] Work Phone: Start: 07-17-2024 End: 07-17-2024 Patient encounter procedure [facility] Work Phone: Start: 03-07-2024 End: 03-07-2024 ambulatory [facility] Work Phone: Start: 03-07-2024 End: 03-07-2024 Patient encounter procedure [facility] Work Phone: Start: 02-16-2024 End: 02-16-2024 ambulatory [facility] Work Phone: Start: 02-16-2024 End: 02-16-2024 Patient encounter procedure [facility] Work Phone: Start: 01-29-2024 End: 01-29-2024 ambulatory [facility] Work Phone: Start: 01-29-2024 End: 01-29-2024 Patient encounter procedure [facility] Work Phone: Start: 01-25-2024 Non-patient / Non-visit [facility] Work Phone: Start: 01-12-2024 End: 01-12-2024 Patient encounter procedure [facility] Work Phone: Start: 12-25-2023 End: 12-25-2023 ambulatory Bernice Ewing Other [employer] Other Start: 12-25-2023 Office outpatient vi sit 15 minutes Bernice Ewing [facility] Start: 12-18-2023 End: 12-18-2023 ambulatory Bernice Ewing Other [employer] Other Start: 12-18-2023 Office outpatient vi sit 15 minutes Bernice Ewing [facility] Start: 12-18-2023 Telephone encounter Bernice Ewing [facility] Start: 09-14-2023 End: 09-14-2023 ambulatory Bernice Ewing Other [employer] Other Start: 09-14-2023 Office outpatient vi sit 15 minutes eBrnice Ewing [facility] Start: 07-25-2023 End: 07-25-2023 ambulatory Rufus Leung Other [employer] Other Start: 07-25-2023 Telephone encounter Rufus Leung [facility] Start: 07-24-2023 End: 07-24-2023 ambulatory Jimmy House Facility:[facility] Start: 07-24-2023 End: 07-24-2023 ambulatory DO Jimmy House Work Phone: [facility] Work Phone: Start: 07-24-2023 End: 07-24-2023 Patient encounter procedure DO Jimmy House Work Phone: [facility] [place] Work Phone: Start: 07-20-2023 End: 07-20-2023 ambulatory Jimmy House Facility:[facility] Start: 07-20-2023 Office outpatient ne w 45 minutes Rufus Leung [facility] Start: 07-20-2023 End: 07-20-2023 ambulatory DO Jimmy House Work Phone: [facility] Work Phone: Start: 07-20-2023 End: 07-20-2023 Patient encounter procedure DO Jimmy House Work Phone: [facility] Start: 07-10-2023 End: 07-10-2023 ambulatory Bernice Ewing Other [employer] Other Start: 07-10-2023 Office outpatient vi sit 15 minutes Bernice Ewing [facility] Start: 07-07-2023 End: 07-07-2023 ambulatory Bernice Ewing Other [employer] Other Start: 07-07-2023 Telephone encounter Bernice Ewing [facility] Start: 05-01-2023 End: 05-01-2023 ambulatory Bernice Ewing Other [employer] Other Start: 05-01-2023 Telephone encounter Bernice Ewing [facility] Start: 03-14-2023 End: 03-14-2023 ambulatory Bernice Ewing Other [employer] Other Start: 03-14-2023 Office outpatient vi sit 15 minutes Bernice Ewing [facility] Start: 01-27-2023 End: 01-27-2023 ambulatory Berniec Ewing Other [employer] Other Start: 01-27-2023 Telephone encounter Bernice Ewing [facility] Start: 12-08-2022 End: 12-08-2022 ambulatory Bernice Ewing Other [employer] Other Start: 12-08-2022 Telephone encounter Bernice Ewing [facility] Start: 12-02-2022 End: 12-02-2022 ambulatory Bernice Ewing Other [employer] Other Start: 12-02-2022 Encounter for genera l adult medical examination without abnormal findings Bernice Ewing [facility] Start: 12-02-2022 Office outpatient vi sit 15 minutes Bernice Ewing [facility] Start: 10-11-2022 End: 10-12-[address] BERNICE EWING Facility:[facility] Start: 09-13-2022 End: 10-20-[address] EBRNICE EWING Facility:[facility] Start: 08-30-[address] BERNICE EWING Facil ity:[facility] Start: 08-05-[address] BERNICE EWING Facil ity:[facility] Start: 08-03-2022 End: 08-04-2022 ambulatory Layne Gudimella Facility:[facility] Start: 08-03-2022 End: 08-03-2022 Patient encounter procedure Layne Gudimella [facility] [place] Start: 07-30-2022 Encounter for genera l adult medical examination without abnormal findings DR BERNICE EWING [facility] Start: 07-28-2022 ambulatory Layne Wangmella Facili ty:[facility] Start: 07-25-2022 End: 07-26-[address] BERNICE [...] MRI of right elbow DO C doc Spears Work Phone: Start: 07-20-2023 Plain X-ray of right elbow DO Jimmy Spears Work Phone: Plan of Treatment Date Care Activity Detail Author Comprehensive metabo lic 2000 panel - Serum or Plasma [facility] enter XR Chest 2 Views [facility] XR Sternum GE 2 Views [facility] Immunizations Immunization Date Immunization Notes Care Provider Fa cili 09-02-2021 influenza virus vaccine, split virus (incl. purified surface antigen) Bernice Ewing Other [employer] [facility] [employer] Other 09-02-2021 influenza virus vaccine, unspecified formulation Layne Gudimella [facility] 03-25-2021 SARS-CoV-2 (COVID-19 ) mRNA BNT-162b2 vax Layne Gudimella [facility] 03-04-2021 SARS-CoV-2 (COVID-19 ) mRNA BNT-162b2 vax Layne Gudimella [facility] 08-23-2020 influenza virus vaccine, split virus (incl. purified surface antigen) Bernice Ewing Other [employer] [facility] [employer] Other 08-23-2020 influenza virus vaccine, unspecified formulation Layne Gudimella [facility] Payers Date Payer Category Payer Self-pay 2011 Private Health Insurance [id number] 1975 Unknown [id number] 1975 Unknown [id number] 1976 Unknown [id number] 1976 Unknown [id number] 1976 Unknown [id number] 1976 Unknown [id number] 1976 Unknown [id number] 1976 Unknown [id number] 1976 Unknown [id number] 1976 Unknown [id number] 1959 Unknown [id number] Private Health Insurance [employer] [id number] Private Health Insurance [employer] [id number] Unknown [id number] Unknown [id number] Social History Date Type Detail Facility Tobacco smoking status No Smoking Status Entered [facility] Sex Assigned At Male [facility] Start: 1975 Sex Assigned At Male Nitin [facility] Start: 09-14-2023 End: 09-14-2023 Tobacco smoking status [facility] Tobacco smoking consumption unknown (finding[facility] [facility] Start: 12-10-2024 End: 02-03-2025 Sex Male (finding) [facility] Start: 09-14-2023 Tobacco smoking status [facility] Smoker (finding) [facility] Clinical Notes 12-30-2021 to 12-10-2024 Note Date & Type Note Facility 12-10-2024 Evaluation note Diagnosis Onset Date Resolution Essential hypertension acute [facility] 2024 9:30am Hordeolum externum right lower eyelid acute December 10, 2024 9:30am Viral URI with cough noneactive [facility] 2024 10:11am Dyslipidemia acute February 03, 2025 8:25am Essential hypertension acute [facility] 2024 8:25am Neuropathy of right lower extremity acute February 03, 2025 8:25am Wellness examination acute [facility] 2024 8:25am [facility] Work Phone: 1(220) 806-966112-12-2024 Evaluation note* Diagnosis Onset Date Resolution Status Admit Date Class 1 obesity with body ma ss index (BMI) of 30.0 to 30.9 in adult acute October 24, 024 9:46am Gastroenteritis acute October 24, 2024 9:46am Hordeolum of left lower eyelid acute October 24, 2024 9:46am Essential hypertension acute [facility] 2024 9:30am Hordeolum externum right low er eyelid acute December 10 9:30am [facility] Work Phone: 1(635) 674-704211-05-2024 Evaluation note* Diagnosis Onset Date Resolution Status Admit Date Essential hypertension acute No vember 2023 9:41am Anxiety, generalized deleted Nove mber 2023 9:41am Class 1 obesity with body ma ss index (BMI) of 30.0 to 30.9 in adult acute October 24, 024 9:46am Gastroenteritis acute October 24, 2024 9:46am Hordeolum of left lower eyelid acute October 24, 2024 9:46am [facility] Work Phone: [phone]) 440-874802-12-2024 Evaluation note* Encounter Date Diagnosis Assessment Notes Treatment Notes Treatment Clinical Notes Dec, Closed fracture of sternum with routine healing, unspecified portion of sternum, subsequent encounter (ICD-10 - S22.20XD) Reviewed OARRs report Recheck Xray today. refilled pain med. call w xray results. [employer] Other 02-05-2024 Evaluation note* Encounter Date Diagnosis Assessment Notes Treatment Notes Treatment Clinical Notes Dec, Closed fracture of sternum, unspecified portion of sternum, initial encounter (ICD-10 - S22.20XA) Followup in 1 week - discussed off work and note provided. [employer] Other 11-02-2023 Evaluation note* Encounter Date Diagnosis [...] left foot (ICD-10 - M79.672) as above [employer] Other 09-07-2023 Evaluation note* Encounter Date Diagnosis [...] ongoing plan once MRI results are obtained. [employer] Other 08-28-2023 Evaluation note* Encounter Date Diagnosis Assessment Notes Treatment Notes Treatment Clinical Notes Jun, Tear of right biceps muscle, subsequent encounter (ICD-10 - S46.211D) Pt agrees to referral to ortho for possible bicep tendon repair. Jun, Anxiety, generalized (ICD-10 - F41.1) Symptoms have worsened. Requests an increased amount of prn med. [employer] Other 05-02-2023 Evaluation note* Encounter Date Diagnosis Assessment Notes Treatment Notes Treatment Clinical Notes March, Strain of right elbow and forearm, initial encounter (ICD-10 - S56.911A) Improving, per pt. Consider PT and NSAIDs if pain does not improve further. [employer] Other 01-20-2023 Evaluation note* Encounter Date Diagnosis Assessment Notes Treatment Notes Treatment Clinical Notes Nov, Peripheral neuritis of both feet (ICD-10 - G57.93) Discussed problem at length labs will be ordered under wellness code. Patient states he gets labs once a year under wellness code. Nov, Wellness examination (ICD-10 - Z00.00) [employer] Other 11-30-2022 NotePROCEDURE: XR ANKLE LT MIN [...] Electronically authenticated by: WILLIAM GAMING Date: 2022-10-12 08:47[facility]11-30-2022 NotePROCEDURE: XR ANKLE LT MIN 3 [...] Electronically authenticated by: WILLIAM GAMING Date: 2022-10-12 08:47[facility]09-08-2022 NotePROCEDURE: XR ANKLE LT MIN 3 [...] Electronically authenticated by: WILLIAM GAMING Date: 2022-07-21 11:47[facility]02-17-2022 NotePROCEDURE: XR FOOT RT MIN 3 [...] Electronically authenticated by: WILLIAM GAMING Date: 2021-12-30 10:04[facility] No data available for this section [facility] Evaluation noteNo InformationNorth [employer] Other Evaluation noteNo assessment information available [facility] Work Phone: Evaluation note* Diagnosis Onset Date Resolution Status Fracture, sternum closed acu te [id number] acute [facility] Work Phone: Evaluation note* Diagnosis Onset Date Resolution Status Fracture, sternum closed acu te [id number] acute [id number] acute [facility] Work Phone: Evaluation note* Diagnosis Onset Date Resolution Status Anxiety, generalized acute Essential hypertension acute [facility] Work Phone: History general Narrative - Reported* [...] EYELID 2013 Hospitalization History SEE SURGICAL HX [facility] [employer] Other Hospital Discharge instructions No data available for this section [facility] note No data available for this section [facility] Reason for referral (narrative)No reason for referral information [facility] Work Phone: Summary Purpose Family History Relationship Condition Age [...] biceps muscle, subsequent encounter (S46.211D) Referral Organization [facility] Referring Provider First Name Bernice Referring Provider Last Name Kaylin Referring Provider Specialty [facility] Referred Organization [facility] Referred Provider Rufus Leung Referred Address [address] [place] [address] [place] [facility] [place] Referred Provider Specialty Orthopaedic Surgery Referral Priority Routine General Notes Leeanne Crockett 11:22:47 AM >received today, sent P2P Chief Complaint and Reason for Visit Chief Complaint S46.211A s46.211a Chief Complaint Sternum Check Up Amb Documentation review results Reason for Visit Fracture, sternum cl osed [id number] Chief Complaint Sternum Check Up Amb Documentation review results Ribs Reason for Visit Fracture, sternum cl osed [id number] Chief Complaint Sternum Check Up Amb Documentation review results Ribs return to work Reason for Visit Fracture, sternum cl osed [id number] Chief Complaint FMLA paperwork discu ssion Chief Complaint FMLA paperwork discu ssion BP Concerns/ER f/u Reason for Visit Anxiety, generalized Essential hypertension Chief Complaint Admit Date BP Concerns/ER f/u September 17, 2024 9 :41am Stomach Pain October 24, 2024 9:46am CC Adult Risk Stratification October 302023 2:55pm right eye swollen, right arm swollen [facility] 2024 9:30am Reason for Visit Admit Date [...] 2:55pm right eye swollen, right arm swollen [facility] 2024 9:30am Chest congestion January 14, 2025 10:1 1am Reason for Visit Admit Date Class 1 obesity with body ma ss index (BMI) of 30.0 to 30.9 in adult October 24, 2024 9:46am Gastroenteritis October 24, 2024 9:46am Hordeolum of left lower eyelid October 24, 2024 9:46am Essential hypertension December 10 9:30am Hordeolum externum right lower eyelid [facility] 2024 9:30am Chief Complaint Admit Date right eye swollen, right arm swollen [facility] 2024 9:30am Chest congestion January 14, 2025 10:1 1am wellness February 03, 2025 8:2 5am Reason for Visit Admit Date Essential hypertension December 10 9:30am Hordeolum externum right lower eyelid [facility] 2024 9:30am Viral URI with cough January 14, 2025 10: 11am Dyslipidemia February 03, 2025 8:2 5am Essential hypertension February 03, 2025 8:25am Neuropathy of right lower extremity [facility] 2024 8:25am Wellness examination February 03, 2025 8: 25am Chief Complaint Admit Date Amb Documentation March 11, 2025 2:2 1pm Discuss BP Meds May 07, 2025 9:24 am Additional Source Comments (unrecognized sect ion and content) No Status Records FoundNo Status Records FoundNo Status Records Found INFORMATION SOURCE (unrecogn ized section and content) DATE CREATED AUTHOR 08/12/2022 [facility] DATE CREATED AUTHOR AUTHOR'S ORGANIZ ATION [facility]/11/2022 [facility] DATE CREATED AUTHOR AUTHOR'S ORGANIZ ATION 08/02/2023 [facility] Care Team (unrecognized sect ion and content) Team Status: Active Member Role Status Dates Bernice Ewing MD Primary Care Provider Active Team Status: Active Member Role Status Dates Bernice Ewing MD Primary Care Provider Active Start: March 11, 2025 Jimena Chavira CMA Attending Provider Active Start: March 11, 2025 Team Status: Inactive Member Role Status Dates Bernice Ewing MD Primary Care Provider Active Start: May 07, 2025 End: May 07, 2025 Bernice Ewing MD Attending Provider Active St art: May 07, 2025 End: May 07, 2025 Team Status: Active Member Role Status Devin Ewing MD Primary Care Provider Active Team [...] Role Status Devin Ewing MD Primary Care Provider Active Start: January 14, 2025 End: January 14, 2025 Ada Wilkisn APRN Attending Provider Active Start: January 14, 2025 End: January 14, 2025 Team Status: Active Member Role Status Devin Ewing MD Primary Care Provider Active Start: [...] 2024 Team Status: Active Member Role Status Devin Spears DO Primary Care Provider Active Team Status: Inactive Member Role Status Devin Spears DO Primary Care Provider Active Rufus Leung DO Attending Provider Active Team Status: Inactive Member Role Status Devin [...] February 03, 2025 End: February 03, 2025 Team Status: Active Member Role Status Devin Ewing MD Primary Care Provider Active Start: March 11, 2025 Jimena Chavira CMA Attending Provider Active Start: March 11, 2025 Team Status: Inactive Member Role Status Devin Ewing MD Primary Care Provider Active Start: May 07, 2025 End: May 07, 2025 Bernice Ewing MD Attending Provider Active St art: May 07, 2025 End: May 07, 2025 REASON FOR VISIT (unrecogniz ed section [...] BE BASED ON THE PRIMARY CLINICAL RECORDS. [employer] [facility]. provides no warranty or guarantee of the accuracy or completeness of information in this document.
[2025-05-09 19:54] VITALS: BP 159/100; PULSE 69; TEMP 36.8; O2SAT 98; BMI 31.6
--- NOTE | 2025-05-09 20:18 | ED.GENADUL1 ---
HPI HPI - General Adult General Chief complaint: Extremity Problem, Nontraumatic Stated complaint: RED SWOLLEN LEGS Time Seen by Provider: 05/09/25 19:51 Source: patient Mode of arrival: walk-in Limitations: no limitations History of Present Illness HPI narrative: cc - red rash and swelling both lower legs Pt left work and noticed that he had red rash and swelling to the lower legs - his compression socks seem to have caused a more prominent indentation than normal and there is a red line at the sock top edge and a patchy re rash bilaterally at and above these sock lines. He told me that he just stopped metoprolol and started hydralazine yesterday - he is wondering if this is an allergic reaction. Related Data Home Medications ?Medication ?Instructions ?Recorded ?Confirmed omeprazole 20 mg capsule,delayed 20 mg PO DAILY 09/15/24 09/15/24 release amlodipine 10 mg tablet mg 05/09/25 hydralazine 25 mg tablet mg 05/09/25 Previous Rx's ?Medication ?Instructions ?Recorded nabumetone 750 mg tablet 750 mg PO BID PRN pain #14 tabs 12/17/23 Held on 03/10/25. Instructions: Resume on 03/21/25. resume as needed after Voltaren use Allergies Allergy/AdvReac Type Severity Reaction Status Date / Time No Known Drug Allergies Allergy Verified 05/09/25 19:54 Opioid HPI Opioid Management Most Recent Opioid Data: Last Pain Scale 8 03/10/25, 10:44 PFSH PFSH Social History Little interest or pleasure in doing things: not at all Feeling down, depressed, or hopeless: not at all Exam Narrative Exam Narrative: Nurses notes and vital signs reviewed and patient is not hypoxic. afebrile General: Well-appearing and in no apparent distress. Skin: Warm, dry, no pallor noted. patchy erythematous skin changes with a clear delineation at the sock line. Rash does not extend more than 3cm proximally from the union of the mid and distal third Head: Normocephalic, atraumatic. Eye: Pupils are equal, round and EOMI. No scleral icterus. Ears, Nose, Mouth, and Throat: Oral mucosa is slightly dry Cardiovascular: Regular Rate and Rhythm without murmur, gallop or rub. Respiratory: No accessory muscle use or respiratory distress. Lungs are clear to auscultation, no wheezing, rales or rhonchi Musculoskeletal: normal ROM, no calf or popliteal tenderness, minimal bilateral lower extremity swelling noted at the middle third of the lower legs Neurological: A&O x4. No cranial nerve dysfunction observed. No truncal ataxia. Moves all extremities. Sensation intact. Psychiatric: Cooperative and interactive. Normal mood and affect. Constitutional Vital Signs, click to edit/add: Last Vital Signs Temp 98.3 F 05/09/25 19:54 Pulse 69 05/09/25 19:54 Resp 05/09/25 19:54 BP 159/100 H 05/09/25 19:54 Pulse Ox 98 05/09/25 19:54 O2 Del Method Room Air 05/09/25 19:54 Course Vital Signs Vital signs: Vital Signs Temperature 98.3 F 05/09/25 19:54 Pulse Rate 05/09/25 19:54 Respiratory Rate 05/09/25 19:54 Blood Pressure 159/100 H 05/09/25 19:54 Pulse Oximetry 98 05/09/25 19:54 Oxygen Delivery Method Room Air 05/09/25 19:54 Temperature 98.3 F 05/09/25 19:54 Pulse Rate 05/09/25 19:54 Respiratory Rate 05/09/25 19:54 Blood Pressure 159/100 H 05/09/25 19:54 Pulse Oximetry 98 05/09/25 19:54 Oxygen Delivery Method Room Air 05/09/25 19:54 Medical Decision Making MDM Narrative Medical decision making narrative: Patient's presentation is consistent with a contact dermatitis with a clear delineation line at the sock line. However it is possible he may have had some sort of a reaction to the new medication. Therefore we had a discussion and he agreed to the following -he would stop the hydralazine, go back on the metoprolol, take an antihistamine, apply a topical steroid to the area of skin change/rash. ED return for any worrisome symptoms such as chest pain, trouble breathing, worsening swelling, development of pain Otherwise he can see his PCP for follow-up -Dr. Sahu Discharge Plan Discharge Chief Complaint: Extremity Problem, Nontraumatic Clinical Impression: Dermatitis Patient Disposition: Home, Self-Care Time of Disposition Decision: 20:26 Prescriptions / Home Meds: No Action hydralazine 25 mg tablet amlodipine 10 mg tablet nabumetone 750 mg tablet 750 mg PO BID PRN (Reason: pain) Qty: 14 0RF omeprazole 20 mg capsule,delayed release(DR/EC) 20 mg PO DAILY Print Language: Samoan Instructions: Dermatitis (ED) Referrals: Bernice Sahu MD [Primary Care Provider, Family Practice] - 1 week
== END 2025-05-09 20:52 | disposition home or self-care (01) ==
PROVIDERS: Emergency Provider Emergency Medicine; PCP Family Medicine
DX: L30.9 Dermatitis, unspecified (principal)
CPT/HCPCS: 99281